=== PATIENT | male | born 1980 | race Caucasian/White ===

== ENCOUNTER → 2019-06-07 | Outpatient (CLI) | payer MEDICARE, OTHER ==
[~2019-06-07] MED LIST: ACET325; ACET325 PO; ALBU90OI INH; ALPR.5 PO; AZIT500 PO; BENZ2 PO; BUSP15 PO; CARB200 PO; CARI350 PO; CEPH500 PO; CITA20 PO; CLIN300 PO; CLOT1SO TOP; Carisoprodol350 MG PO; DIVA500EC PO; DULO30 PO; ESCI20 PO; FLUO10 PO; HYDACE5 PO; HYDMOR4 PO; IBUP800 PO; MULVITMINF PO; NAPR500 PO; NICO7; Naprosyn500 MG PO; Norco 5-325 Ta1 EACH PO; OLAN10 PO; OMEP20ER PO; ONDA4 PO; ONDA4ODT MM; OXYACE5T PO; PALI3TAB PO; PENVK500 PO; PRAZ1 PO; PRODEXEL PO; PROM25 PO; PROP10 PO; PROP80ER PO; PROZAC20 MG PO; Potassium Citra5 MEQ PO; Prednisone20 MG PO; QUET300 PO; ROPI.25 PO; RXHYDACE PO; RXHYDMOR2 PO; RXPROM25 PO; Roxicodone5 MG PO; SOMA350 MG PO; SPACE CHAMBER1 EACH MC; SULTRIDS PO; TRAZ150T57 PO; ZOLP10 PO; ZOLPIDEM 5 MG PO; Zithromax250 MG PO; Zovirax200 MG PO; [UNRECOGNIZED DRUG - OTHER] IV; [UNRECOGNIZED DRUG - REMARK]
[2019-06-07 12:19] LABS: BASOPHILS ABSOLUTE AUTO 0.05 K/mm3 (0.00-0.23); BASOPHILS PERCENT AUTO 1 % (0-2); EOSINOPHILS ABSOLUTE AUTO 0.29 K/mm3 (0.00-0.68); EOSINOPHILS PERCENT AUTO 3 % (0-6); Hematocrit 43.2 % (37.0-53.0); Hemoglobin 14.9 g/dL (13.5-17.5); IMMATURE GRAN ABSOLUTE AUTO 0.02 K/mm3 (0.00-0.10); IMMATURE GRAN PERCENT AUTO 0 % (0-1); LYMPHOCYTES ABSOLUTE AUTO 2.52 K/mm3 (0.84-5.20); LYMPHOCYTES PERCENT AUTO 26 % (21-46); MONOCYTES ABSOLUTE AUTO 0.72 K/mm3 (0.16-1.47); MONOCYTES PERCENT AUTO 7 % (4-13); Mean Corpuscular HGB 30.9 pg (26.0-34.0); Mean Corpuscular HGB Conc 34.5 g/dL (31.5-36.5); Mean Corpuscular Volume 90 fL (80-100); Mean Platelet Volume 9.9 fL (9.1-12.4); NEUTROPHILS ABSOLUTE AUTO 6.14 K/mm3 (1.96-9.15); NEUTROPHILS PERCENT AUTO 63 % (41-73); Platelet Count 356 K/mm3 (150-400); RDW Coefficient Variation 12.8 % (11.7-14.2); RDW Standard Deviation 42.3 fL (35.1-46.3); Red Blood Cell Count 4.82 M/mm3 (4.30-5.90); White Blood Cell Count 9.74 K/mm3 (4.00-11.30)
[2019-06-07 12:27] LABS: Alanine Aminotransfer (ALT/SGP 20 U/L (12-78); Albumin/Globulin Ratio 1.2 (0.8-1.8); Alk Phos 66 U/L (40-126); Amylase, Blood 27 U/L (25-115); Anion Gap 10 mmol/L (6-16); Aspartate Aminotrans (AST/SGOT 18 U/L (12-37); Bilirubin, Total 0.2 mg/dL (0.1-1.0); Blood Urea Nitrogen 9 mg/dL (8-24); Bun/Creatinine Ratio 9.8 (12.0-20.0); CO2, Blood 28 mmol/L (21-32); Calcium, Blood 8.9 mg/dL (8.5-10.1); Chloride, Blood 102 mmol/L (98-108); Creatinine, Blood 0.92 mg/dL (0.60-1.20); Globulin, Blood 3.3 g/dL (2.2-4.0); Glomerular Filtration Rate >60 (60-); Glucose, Blood 107 mg/dL (70-99); Potassium, Blood 3.9 mmol/L (3.5-5.5); Sodium, Blood 140 mmol/L (136-145); Total Protein, Blood 7.3 g/dL (6.4-8.2)
== END ==
LOC: LAB EV 12:11 → LAB SHORT 12:11
PROVIDERS: Emergency Medicine
DX: R10.9 Unspecified abdominal pain (principal)
CPT/HCPCS: 80053; 82150; 83690; 85025

== ENCOUNTER 2019-06-12 09:13 | Inpatient (IN) | payer MEDICARE, OTHER ==
[~2019-06-12] VITALS: Ht 167.6 cm; Wt 65.7 kg
[2019-06-12] MEDS ORDERED: BUSP5 (10:10)
[2019-06-12] MEDS ORDERED: TRAZADONE (10:10)
[2019-06-12] MEDS ORDERED: LYRICA (10:11)
[2019-06-12 10:17] LABS: Hemoglobin 13.7 g/dL (13.5-17.5); Mean Corpuscular HGB 30.7 pg (26.0-34.0); Mean Corpuscular HGB Conc 33.4 g/dL (31.5-36.5); Mean Corpuscular Volume 92 fL (80-100); Mean Platelet Volume 11.1 fL (9.1-12.4); Platelet Count 241 K/mm3 (150-400); RDW Coefficient Variation 13.4 % (11.7-14.2); RDW Standard Deviation 45.5 fL (35.1-46.3); Red Blood Cell Count 4.46 M/mm3 (4.30-5.90)
[2019-06-12 10:26] LABS: PCO2 Arterial 50.9 mmHg (35-45); PO2 Arterial 95.1 mmHg (80-100); pH Blood Arterial 7.34 (7.35-7.45)
[2019-06-12 10:31] LABS: International Normalized Ratio 1.21; Prothrombin Time Results 12.8 Sec (9.7-11.5)
[2019-06-12 10:34] LABS: Source, Urine Voided
[2019-06-12 10:36] LABS: Alanine Aminotransfer (ALT/SGP 37 U/L (12-78); Albumin, Blood 3.4 g/dL (3.4-5.0); Albumin/Globulin Ratio 0.8 (0.8-1.8); Alk Phos 89 U/L (50-136); Anion Gap 9 mmol/L (6-16); Aspartate Aminotrans (AST/SGOT 69 U/L (12-37); Bilirubin, Total 0.4 mg/dL (0.1-1.0); Blood Urea Nitrogen 14 mg/dL (8-24); Bun/Creatinine Ratio 12.8 (12.0-20.0); CO2, Blood 25 mmol/L (21-32); Calcium, Blood 9.1 mg/dL (8.5-10.1); Chloride, Blood 101 mmol/L (98-108); Creatinine, Blood 1.09 mg/dL (0.60-1.20); Globulin, Blood 4.1 g/dL (2.2-4.0); Glomerular Filtration Rate >60 (60-); Glucose, Blood 94 mg/dL (70-99); Potassium, Blood 4.1 mmol/L (3.5-5.5); Sodium, Blood 135 mmol/L (136-145); Total Protein, Blood 7.5 g/dL (6.4-8.2)
[2019-06-12 10:40] LABS: Appearance, Urine Hazy (Clear); Blood, Urine 5+ (Neg); Glucose Qualitative, Urine Neg (Neg); Ketones, Urine 1+ (Neg); Leukocyte Esterase, Urine 1+ (Neg); Nitrite, Urine Pos (Neg); Protein, Urine 4+ (Neg); Specific Gravity, Urine 1.025 (1.003-1.022); Urobilinogen, Urine 2+ (Normal)
[2019-06-12 10:57] LABS: BAND PERCENT MAN 13 % (0-8); BASOPHILS ABSOLUTE MAN 0.14 K/mm3 (0.00-0.23); BASOPHILS PERCENT MAN 1 % (0-2); EOSINOPHILS PERCENT MAN 0 % (0-6); LYMPHOCYTES ABSOLUTE MAN 0.14 K/mm3 (0.84-5.20); LYMPHOCYTES PERCENT MAN 1 % (21-46); MONOCYTES ABSOLUTE MAN 1.18 K/mm3 (0.16-1.47); MONOCYTES PERCENT MAN 8 % (4-13); NEUTROPHILS ABSOLUTE MAN 13.32 K/mm3 (1.96-9.15); SEG NEUTROPHILS PERCENT MAN 77 % (41-73); TOTAL CELLS COUNTED 100
[2019-06-12 10:58] LABS: Bilirubin, Urine 1+ (Neg)
[2019-06-12 11:00] LABS: Color, Urine Amber (P-Yellow)
[2019-06-12 11:01] LABS: Amorphous Mod (0-Heavy); Bacteria Many /hpf; Mucus Light (0-Heavy); Squamous Epithelial Cells Rare /hpf (Few)
[2019-06-12 11:08] LABS: U Amphetamine Screen DETECTED; U Cannabinoids Screen DETECTED; U Methamphetamine Screen DETECTED
[2019-06-12 11:09] LABS: Influenza A Negative (NEGATIVE); Influenza B Negative (NEGATIVE); U Barbituate Screen Not Detected; U Benzodiazapine Screen Not Detected; U Buprenorphine Screen Not Detected; U Cocaine Screen Not Detected; U Methadone Screen DETECTED; U Opiates Screen Not Detected; U Oxycodone Screen Not Detected; U Phencyclidine Screen Not Detected; U Propoxyphene Screen Not Detected
[2019-06-12] MEDS ORDERED: PREGABALIN200 MG PO (12:02)
[2019-06-12] MEDS ORDERED: Buspirone HCl15 MG PO (12:02)
[2019-06-12] MEDS ORDERED: TRAZ100 PO (12:02)
[2019-06-12] MEDS ORDERED: Zoloft100 MG PO (12:03)
[2019-06-12 14:42] LABS: Creatine Kinase MB 11.4 ng/mL (0.0-3.6)
[2019-06-12 14:52] LABS: Creatine Kinase MB Index 0.5 (0.0-4.0)
--- NOTE | 2019-06-12 15:15 | NUR ---
REPORT FROM KARAN ALMONTE 39 YO MALE TO ICU 8 FOR SEPSIS, PNEUMONIA AND SUBSTANCE ABUSE. INTUBATED, VENTILATED
--- NOTE | 2019-06-12 16:16 | NUR ---
PATIENT ARRIVED 1550. INTUBATED 8.0 ETT 24 THOMAS. AC 14 Vt 500 PEEP 5 FIO2 40% PROPOFOL STARTED AT 30 MCG/KG/MIN. DIFFUSE RASH NOTED UPPER CHEST WITH VANCO INFUSING. VANCO STOPPED PER DR. PARISH AND PHARMACY NOTIFIED OF ALLERGY. OGT TO LIS. TEMP PROBE BARBOSA DRAINING YELLOW URINE
--- NOTE | 2019-06-12 17:09 | NUR ---
SLIGHT ST ELEVATION ON MONITOR IN ROOM. ECG ORDERED BY DR. PARISH.
[2019-06-12 18:37] LABS: Adenovirus Not Detected (NOT DETECT); Bordetella pertussis Not Detected (NOT DETECT); Chlamydophila pneumoniae Not Detected (NOT DETECT); Coronavirus 229E Not Detected (NOT DETECT); Coronavirus HKU1 Not Detected (NOT DETECT); Coronavirus NL63 Not Detected (NOT DETECT); Coronavirus OC43 Not Detected (NOT DETECT); Human Metapneumovirus Not Detected (NOT DETECT); Human Rhinovirus/Enterovirus Not Detected (NOT DETECT); Influenza A Detected (NOT DETECT); Influenza A/H3 Not Detected (NOT DETECT); Influenza B Not Detected (NOT DETECT); Mycoplasma pneumoniae Not Detected (NOT DETECT); Parainfluenza Virus 1 Not Detected (NOT DETECT); Parainfluenza Virus 2 Not Detected (NOT DETECT); Parainfluenza Virus 3 Not Detected (NOT DETECT); Parainfluenza Virus 4 Not Detected (NOT DETECT); Respiratory Syncytial Virus Not Detected (NOT DETECT)
[2019-06-12 18:38] LABS: Influenza A/2009-H1 Detected (NOT DETECT); Influenza A/H1 Not Detected (NOT DETECT)
--- NOTE | 2019-06-12 20:30 | NUR ---
ETT IN PLACE WITH VENT SET AT AC 14, TV 500, PEEP 5, FIO2 35% SUCTIONING LARGE AMT OF THIN CLEAR TO WHITE SPUTUM. PATIENT RESTLESS AND TEARFUL WHEN FAMILY IN THE ROOM. PATIENT NODDING YES TO BACK PAIN, FENTANYL GIVEN FOR PAIN. PROPOFOL TITRATED TO 35 MCG FROM 40 MCG DUE TO HYPOTENSION. DOCTOR МАРИНА NOTIFIED OF FLU + RESULTS AND HYPOTENSION, PLAN TO PLACE CENTRAL LINE AND USE LEVOPHED IF NEEDED. OG IN PLACE AND CLAMPED, BOWEL TONES HYPER AND PATIENT PASSING FLATUS, DENIES NEED TO HAVE BM. PATIENTS FAMILY HOME FOR THE NIGHT TO ALLOW PATIENT TO REST.
[2019-06-12 21:00] LABS: Troponin I 0.052 ng/mL (0.000-0.040)
[2019-06-12 22:34] LABS: Creatine Kinase MB 10.3 ng/mL (0.0-3.6); Creatine Kinase MB Index 0.5 (0.0-4.0)
--- NOTE | 2019-06-12 22:41 | NUR ---
CENTRAL LINE PLACED TO RIGHT IJ BY DOCTOR МАРИНА, PATIENT NILAY WELL. OK TO USE PER X-RAY AND DOCTOR МАРИНА. PATIENT RESTING QUIETLY WITH PROPOFOL AT 35MCG. NO NEED FOR FURTHER ATIVAN OR FENTANYL DURING LINE PLACEMENT.
[2019-06-12 22:45] LABS: PCO2 Arterial 49.9 mmHg (35-45); PO2 Arterial 74.8 mmHg (80-100); pH Blood Arterial 7.35 (7.35-7.45)
[2019-06-13 03:16] LABS: Hematocrit 33.2 % (37.0-53.0); Hemoglobin 10.7 g/dL (13.5-17.5); Mean Corpuscular HGB 30.1 pg (26.0-34.0); Mean Corpuscular HGB Conc 32.2 g/dL (31.5-36.5); Mean Corpuscular Volume 94 fL (80-100); Mean Platelet Volume 11.4 fL (9.1-12.4); Platelet Count 165 K/mm3 (150-400); RDW Coefficient Variation 13.9 % (11.7-14.2); RDW Standard Deviation 48.4 fL (35.1-46.3); Red Blood Cell Count 3.55 M/mm3 (4.30-5.90); White Blood Cell Count 5.54 K/mm3 (4.00-11.30)
[2019-06-13 03:38] LABS: Alanine Aminotransfer (ALT/SGP 42 U/L (12-78); Albumin, Blood 2.3 g/dL (3.4-5.0); Albumin/Globulin Ratio 0.7 (0.8-1.8); Alk Phos 61 U/L (50-136); Anion Gap 5 mmol/L (6-16); Aspartate Aminotrans (AST/SGOT 69 U/L (12-37); Bilirubin, Total 0.2 mg/dL (0.1-1.0); Blood Urea Nitrogen 11 mg/dL (8-24); Bun/Creatinine Ratio 20.1 (12.0-20.0); CO2, Blood 28 mmol/L (21-32); Calcium, Blood 8.4 mg/dL (8.5-10.1); Chloride, Blood 109 mmol/L (98-108); Creatinine, Blood 0.55 mg/dL (0.60-1.20); Globulin, Blood 3.2 g/dL (2.2-4.0); Glomerular Filtration Rate >60 (60-); Glucose, Blood 132 mg/dL (70-99); Magnesium, Blood 2.1 mg/dL (1.6-2.4); Potassium, Blood 4.3 mmol/L (3.5-5.5); Sodium, Blood 142 mmol/L (136-145)
[2019-06-13 03:39] LABS: Total Protein, Blood 5.5 g/dL (6.4-8.2)
[2019-06-13 03:50] LABS: CPK Creatine Kinase 1383 U/L (39-308)
[2019-06-13 05:35] LABS: BAND PERCENT MAN 13 % (0-8); BASOPHILS PERCENT MAN 0 % (0-2); EOSINOPHILS PERCENT MAN 0 % (0-6); LYMPHOCYTES ABSOLUTE MAN 0.55 K/mm3 (0.84-5.20); LYMPHOCYTES PERCENT MAN 10 % (21-46); METAMYELOCYTE ABSOLUTE MAN 0.05 K/mm3 (0.00-0.00); METAMYELOCYTE PERCENT MAN 1 % (0-0); MONOCYTES ABSOLUTE MAN 0.22 K/mm3 (0.16-1.47); MONOCYTES PERCENT MAN 4 % (4-13); SEG NEUTROPHILS PERCENT MAN 72 % (41-73); TOTAL CELLS COUNTED 100
--- NOTE | 2019-06-13 06:28 | NUR ---
SUMMARY PATIENT REMAINS INTUBATED AND SEDATED WITH ETT IN PLACE AND VENT SET AT AC 14, TV 500, PEEP 5, FIO2 40%. CONTINUE TO SUCTION LARGE AMT OF CREAMY YELLOW SPUTUM VIA ETT. PATIENT AWAKENS TO SLIGHT STIMULI, PROPOFOL 40 MCG AND PRN ATIVAN GIVEN TO HELP PATIENT NILAY ETT. PATIENT COOL AND DIAPHORETIC SEVERAL TIMES DURING THE NIGHT. ABD SOFT BUT NO BM RESULTS, CONTINUES TO PASS FLATUS. BILAT WRIST RESTRAINTS REMAIN IN PLACE DUE TO RISK FOR SELF EXTUBATION DUE TO UNPREDICTABLE SEDATION AND BEHAVIOR. OG REMAINS IN PLACE AND CLAMPED.
--- NOTE | 2019-06-13 07:40 | NUR ---
ASSUMED CARE REPORT FROM LU Payan RN. INTUBATED, VENTILATED AND RESTRAINED. IN DROPLET AND CONTACT ISOLATION FOR INFLUENZA A H1N1. SEDATED ON PROPOFOL AT 40 MCG/KG/MIN. SN NASRIN TO ASSESS PATIENT
--- NOTE | 2019-06-13 19:30 | NUR ---
PATIENT AWAKE AND RESTLESS, ETT IN PLACE WITH VENT SET AT AC 14, TV 500, PEEP 5, FIO2 45%. SUCTIONING THICK YELLOW SPUTUM VIA ETT. PROPOFOL AT 50 MCG, ATIVAN GIVEN TO HELP PATIENT RELAX. PATIENT INCONT OF LIQUID BROWN STOOL, ABD SOFT BOWEL TONES HYPERACTIVE. OG IN PLACE WITH TUBE FEEDING AT 25 CC/HR, PLAN TO INCREASE RATE TO GOAL OF 45 CC/HR PATIENT NILAY. MAEW AND NODDING YES AND NO QUESTIONS.
--- NOTE | 2019-06-13 19:36 | NUR ---
PROPOFOL TO 50 MCG/KG/MIN, FENTANYL AND ATIVAN GIVEN WHEN PATIENT AWAKE AND BITING ETT. TF HELD UNTIL PATIENT CALMED. CENTRAL LINE DRESSING REPLACED. REPORT GIVEN TO LU Payan RN
--- NOTE | 2019-06-13 20:00 | NUR ---
PATIENT RESTING QUIETLY INTUBATED AND SEDATED. ETT IN PLACE WITH VENT SET AT AC 16, TV 450, PEEP 10, FIO2 75%. PROPOFOL AT 40MCG FOR SEDATION. PATIENT GRIMACING WITH CARE, NOT FOLLOWING DIRECTIONS. BILAT WRIST RESTRAINTS IN PLACE TO PREVENT ACCIDENTAL EXTUBATION. OG IN PLACE WITH TUBE FEEDING PIVIT 1.5 AT GOAL RATE OF 25/HR. GENERALIZED EDEMA. TRANSVENOUS PACER INCRETION SITE TO RIGHT CHEST. DRESSING CD&I, MONITOR SHOWING PACED RHYTHM SET AT 60, APROX 90% PACED DUE TO PATIENTS OWN INCREASED RATE TO THE 70'S.
[2019-06-14 04:33] LABS: BASOPHILS PERCENT AUTO 0 % (0-2); EOSINOPHILS PERCENT AUTO 0 % (0-6); Hematocrit 33.1 % (37.0-53.0); Hemoglobin 10.6 g/dL (13.5-17.5); IMMATURE GRAN ABSOLUTE AUTO 0.04 K/mm3 (0.00-0.10); IMMATURE GRAN PERCENT AUTO 1 % (0-1); LYMPHOCYTES ABSOLUTE AUTO 0.71 K/mm3 (0.84-5.20); LYMPHOCYTES PERCENT AUTO 12 % (21-46); MONOCYTES PERCENT AUTO 7 % (4-13); Mean Corpuscular HGB 30.3 pg (26.0-34.0); Mean Corpuscular Volume 95 fL (80-100); Mean Platelet Volume 11.1 fL (9.1-12.4); NEUTROPHILS ABSOLUTE AUTO 4.97 K/mm3 (1.96-9.15); NEUTROPHILS PERCENT AUTO 81 % (41-73); NRBC ABSOLUTE 0.04 K/mm3 (0.00-0.02); NRBC Auto 0.7 /100 WBC (0.0-0.2); Platelet Count 197 K/mm3 (150-400); RDW Coefficient Variation 14.7 % (11.7-14.2); RDW Standard Deviation 51.4 fL (35.1-46.3); White Blood Cell Count 6.12 K/mm3 (4.00-11.30)
[2019-06-14 04:52] LABS: Alanine Aminotransfer (ALT/SGP 45 U/L (12-78); Albumin, Blood 2.3 g/dL (3.4-5.0); Albumin/Globulin Ratio 0.7 (0.8-1.8); Alk Phos 60 U/L (50-136); Anion Gap 1 mmol/L (6-16); Aspartate Aminotrans (AST/SGOT 49 U/L (12-37); Bilirubin, Total 0.1 mg/dL (0.1-1.0); Blood Urea Nitrogen 15 mg/dL (8-24); Bun/Creatinine Ratio 27.3 (12.0-20.0); CO2, Blood 31 mmol/L (21-32); CPK Creatine Kinase 479 U/L (39-308); Calcium, Blood 8.5 mg/dL (8.5-10.1); Chloride, Blood 112 mmol/L (98-108); Creatinine, Blood 0.55 mg/dL (0.60-1.20); Globulin, Blood 3.2 g/dL (2.2-4.0); Glomerular Filtration Rate >60 (60-); Glucose, Blood 167 mg/dL (70-99); Magnesium, Blood 2.2 mg/dL (1.6-2.4); Phosphorus, Blood 2.3 mg/dL (2.5-4.9); Potassium, Blood 3.6 mmol/L (3.5-5.5); Sodium, Blood 144 mmol/L (136-145); Total Protein, Blood 5.5 g/dL (6.4-8.2)
[2019-06-14 04:57] LABS: PCO2 Arterial 47.6 mmHg (35-45); PO2 Arterial 95.4 mmHg (80-100); pH Blood Arterial 7.41 (7.35-7.45)
--- NOTE | 2019-06-14 06:40 | NUR ---
SUMMARY PATIENT REMAINS INTUBATED AND SEDATED WITH PROPOFOL AT 50MCG, AND ATIVAN NEEDED. PATIENT AWAKENS EASILY TO SLIGHT STIMULI. BILAT WRIST RESTRAINT REMAIN IN PLACE TO PREVENT ACCIDENTAL EXTUBATION DUE TO UNPREDICTABLE SEDATION AND BEHAVIOR. NO CHANGES TO VENT SETTINGS T/O NIGHT. CONTINUE TO SUCTION LARGE AMT OF CREAMY YELLOW SECRETIONS VIA ETT. OG REMAINS IN PLACE WITH TUBE FEEDING AT GOAL RATE OF 45/HR. PATIENT PASSING SEVERAL LOOSE BROWN BM'S T/O NIGHT.
--- NOTE | 2019-06-14 07:27 | NUR ---
ASSUMED CARE REPORT FROM LU Payan RN. PT CONTINUES INTUBATED, VENTILATED AND RESTRAINED. PROPOFOL AT 50 MCG/KG/MIN. NS 125 ML/HR
--- NOTE | 2019-06-14 09:25 | NUR ---
VISIT DR. FREY IN AROUND 0800
--- NOTE | 2019-06-14 12:18 | NUR ---
MD VISIT DR. MOCK IN. WILL ORDER PRECEDEX
--- NOTE | 2019-06-14 14:07 | NUR ---
PRECEDEX GTT STARTED AT 0.32 MCG/KG./HR, TITRATED TO 0.5 MCG/KG/HR AND TO 0.7 MCG/KG/HR FOR CONTINUJED AGITATION WITH Q 1 HR ATIVAN. PROPOFOL TITRATED TO 60 MCG/KG/MIN
--- NOTE | 2019-06-14 15:51 | NUR ---
SUMMARY: PATIENT BECAME INCREASINGLY MORE AGITATED AROUND 1400. PRECEDEX GTT TITRATED FROM 0.3 MCG/KG/HR TO 0.7 MCG/KG/HR. PATIENT STARTED RYTHMIC MOVEMENT WITH EYES ROLLED DOWN. ATIVAN [address] MOCK CONSULTED PT CONTINUED POSSIBLE SEIZURE ACTIVITY. 4 MG IV ATIVAN GIVEN. CONTINUE TO FIGHT VENT, LUNGS TIGHT AND WHEEZY THROUGHOUT. PRECEDEX GTT STOPPED. KEPPRA GTT GIVEN. BENADRYL IV GIVEN. BREATHING SLOWED TO 27 BPM AND THEN BACK UP TO 30'S AND 40'S. RT AT BEDSIDE WITH BREATHING TX'S. VERSED 4MG IV GIVEN. PARALYZED WITH VEC. LUNG SOUNDS CLEAR WHILE PARALIZED. VERSED GTT STARTED AT 2 MG/HR. PROPOFOL AT 60 MCG/KG/HR. AT 1545 VERSED TITRATED TO 4 MG/HR FOR INCREASING AGITATION. EEG ORDERED BY DR. MOCK. DIRECTOR OF CREATIVE SERVICES ADVISES SHE WILL BE IN AFTER 1400 TOMORROW. MOTHER IN TO VISIT, BUT WAS TOLD PATIENT WAS TOO AGITATED FOR A VISIT AT THIS TIME. PATIENT PASSING LIQUID STOOL, NO SIGN OF FOREIGN OBJECTS.
--- NOTE | 2019-06-14 16:39 | NUR ---
BECAME VERY AGITATED AGAIN WITH ORAL CARE. FENTANYL 50 MCG IV GIVEN PROPOFOL TO 80 MCG/KG/MIN. VERSED GTT TO 6 MG/HR
--- NOTE | 2019-06-14 16:52 | NUR ---
PATIENT CONTINUES TO BECOME AGITATED WITH THE LEAST AMOUNT OF STIMULATION. VERSED GTT TO 10 MG/HR. PROPOFOL 80 MCG/KG/MIN. BP 158/92. RR 4 BIOX 100% HR 105
--- NOTE | 2019-06-14 16:58 | NUR ---
PROPOFOL TO 100 MCG/KG/MIN. DR. MOCK NOTIFIED. NIMBEX GTT ORDERED.
--- NOTE | 2019-06-14 17:52 | NUR ---
NIMBEX TITRATED TO 3.5 FOR PARALYSIS BIS MONITOR 40 WITH VERSED GTT TO 2 MG/HR AND PROPOFOL 55 MMCG/KG/MIN
--- NOTE | 2019-06-14 18:47 | NUR ---
URINE SQUIRTING FROM AROUND CATHETER. IRRIGATED WITH 30 CC NS. IMMEDIATE RETURN OF 200 CC RED URINE. BM CLEANED. WHITE SUBSTANCE IN STOOL APPEARS TO BE GUM. REPOSITIONED. WILL REPORT TO ONCOMING SHIFT.
--- NOTE | 2019-06-14 20:00 | NUR ---
PATIENT REMAINS INTUBATED AND SEDATED VENT SET AT AC 14, TV 500, PEEP 5, FIO2 45%. SEDATED WITH PROPOFOL AT 30MCG, VERSED AT 2MG, AND PARALYZED WITH NIMBEX AT 3.5. CLARIFIED WITH DOCTOR MOCK AND TUBE FEEDING DECREASED TO 10 CC/HR AND HYDRALAZINE ORDERED FOR HYPERTENSION. PLAN TO TITRATE NIMBEX DOWN PATIENT CAN NILAY. CONTINUE BOTH PROPOFOL AND VERSED DRIP. SEE FLOW SHEET FOR TITRATIONS. OG REMAINS IN PLACE FOR TUBE FEEDING. BARBOSA DRAINING BLOODY URINE WITH FEW CLOTS SEEN IN TUBING. BILAT WRIST RESTRAINTS REMAIN IN PLACE DUE TO UNPREDICTABLE SEDATION AND BEHAVIOR.
[2019-06-15 05:04] LABS: BASOPHILS ABSOLUTE AUTO 0.03 K/mm3 (0.00-0.23); BASOPHILS PERCENT AUTO 0 % (0-2); EOSINOPHILS PERCENT AUTO 0 % (0-6); Hematocrit 37.3 % (37.0-53.0); IMMATURE GRAN ABSOLUTE AUTO 0.36 K/mm3 (0.00-0.10); IMMATURE GRAN PERCENT AUTO 5 % (0-1); LYMPHOCYTES ABSOLUTE AUTO 1.24 K/mm3 (0.84-5.20); LYMPHOCYTES PERCENT AUTO 16 % (21-46); MONOCYTES ABSOLUTE AUTO 0.58 K/mm3 (0.16-1.47); MONOCYTES PERCENT AUTO 7 % (4-13); Mean Corpuscular HGB 30.1 pg (26.0-34.0); Mean Corpuscular HGB Conc 32.2 g/dL (31.5-36.5); Mean Corpuscular Volume 94 fL (80-100); Mean Platelet Volume 10.8 fL (9.1-12.4); NEUTROPHILS ABSOLUTE AUTO 5.63 K/mm3 (1.96-9.15); NEUTROPHILS PERCENT AUTO 72 % (41-73); Platelet Count 240 K/mm3 (150-400); RDW Coefficient Variation 14.8 % (11.7-14.2); RDW Standard Deviation 51.8 fL (35.1-46.3); Red Blood Cell Count 3.99 M/mm3 (4.30-5.90); White Blood Cell Count 7.84 K/mm3 (4.00-11.30)
[2019-06-15 05:31] LABS: Albumin, Blood 2.7 g/dL (3.4-5.0); Anion Gap 3 mmol/L (6-16); Blood Urea Nitrogen 10 mg/dL (8-24); Bun/Creatinine Ratio 19.3 (12.0-20.0); CO2, Blood 32 mmol/L (21-32); Calcium, Blood 8.5 mg/dL (8.5-10.1); Chloride, Blood 108 mmol/L (98-108); Creatinine, Blood 0.52 mg/dL (0.60-1.20); Glomerular Filtration Rate >60 (60-); Glucose, Blood 139 mg/dL (70-99); Phosphorus, Blood 3.3 mg/dL (2.5-4.9); Potassium, Blood 3.7 mmol/L (3.5-5.5); Sodium, Blood 143 mmol/L (136-145)
--- NOTE | 2019-06-15 06:00 | NUR ---
SUMMARY PATIENT INTUBATED AND SEDATED, ETT IN PLACE WITH VENT SET AT AC 14, TV 500, PEEP 5, FIO2 40% SEDATED WITH VERSED 1MG, PROPOFOL 40 MCG, AND PARALYZED WITH NIMBEX 2 MCG. PATIENT BIS IN PLACE WITH RANGE HIGH 20'S WHEN UNDISTURBED AND LOW 40'S WITH STIMULI. TRAIN OF 4 4/4 TO RIGHT EYEBROW. OG IN PLACE WITH TUBE FEEDING AT 10 CC/HR WHILE ON NIMBEX. NO FURTHER LIQUID STOOLS T/O NIGHT. BARBOSA DRAINING BLOOD TINGED TO PINK URINE, AND HAS BEEN CLEARING TO YELLOW URINE THE NIGHT PROGRESSED. BILAT WRIST RESTRAINTS REMAIN IN PLACE DUE TO UNPREDICTABLE SEDATION AND BEHAVIOR.
--- NOTE | 2019-06-15 10:12 | NUR ---
0800...PT SEDATED NOTED ON PROPOFOL, VERSED, NIMBEX NOTED, NS. PT HAS SL TWITHCHING OF LEGS WITH STIMULATION OF FEET AND RANDOM SL MOVEMENT OF HEAD ON CURRENTL SETITNGS. AT APPROX 0930 PT NOTED TO BE MOD. TWITCHING OF UPPER BODY AND HR UP TO 115-120. NIMBEX WAS UNC BACK TO 2 MCG, AND PROPOFOL GTT INC TO 50, THEN APROX 0950 VERSED GTT INC TO 2MCG AND WILL FOLLOW. 1020 PT HAS ONLY SL TWITCHING OF HEAD RANDOMLY AND OTHERWISE CALM AND WILL FOLLOW. HR REMAINS SL ELEVATED NOTED AND HAS BP EVEN WITH PRN. WILL FOLLOW WITH SEDATION, MEDS AND DR NEEDED.
--- NOTE | 2019-06-15 18:51 | NUR ---
PT IS RESTING QUIETLY WITH CHARTED AND NOTED MEDS PER FLOWSHEET. PT HAS HAD NO STOOLING. VS HAVE IMPROVED WITH EARLIER START OF PRECEDEX GTT. VENT SETTINGS UNCHANGED. ET SX HAVE BEEN MINIMAL AND WHITE. VENT UNCHANGED. I/O NOTED AND IVF RATE CHANGED NOTED AND 2000 LABS TO FOLLOW.
[2019-06-15 21:50] LABS: Anion Gap 1 mmol/L (6-16); Blood Urea Nitrogen 10 mg/dL (8-24); Bun/Creatinine Ratio 19.2 (12.0-20.0); CO2, Blood 33 mmol/L (21-32); Calcium, Blood 8.7 mg/dL (8.5-10.1); Chloride, Blood 106 mmol/L (98-108); Creatinine, Blood 0.52 mg/dL (0.60-1.20); Glomerular Filtration Rate >60 (60-); Glucose, Blood 135 mg/dL (70-99); Potassium, Blood 3.9 mmol/L (3.5-5.5); Sodium, Blood 140 mmol/L (136-145)
--- NOTE | 2019-06-15 22:00 | NUR ---
ASSUMED PT CARE FROM KARAN FUNG AT 1915 PT INTUBATED, SEDATED, AND PARALYZED. PROPOFOL INFUSING AT 40MCG/KG/MIN, PRECEDEX AT 0.7MCG/KG/HR, AND VERSED AT 1MG/HR. PT HAS NIMBEX INFUSING AT 2MCG/KG/MIN; TRAIN OF FOUR NOTED TO BE 4/4 AND BIS MONITOR MEASURING BETWEEN 20-30'S. PT IS COMPLETELY UNRESPONSIVE. PER REPORT PT WAS ATTEMPTED WITH A SEDATION VACATION, WHICH WAS UNSUCCESSFUL PT WAS VERY AGITATED AND RESTLESS AND WASN'T FOLLOWING ANY COMMANDS. WILL ATTEMPT SEDATION VACATION LATER IN SHIFT. PT NOTED TO HAVE VITAL HIGH PROTEIN INFUSING AT A GOAL OF 10CC/HR D/T NIMBEX GTT. CENTRAL LINE NOTED TO RIGHT IJ. BARBOSA CATH PATENT AND DRAINING CLOUDY PINK TINGED URINE TO GRAVITY WITH NOTED SEDIMENT. PT IS NOTED TO HAVE DEPENDENT EDEMA TO BUE'S AND BLE'S. PT NOTED TO BE NSR WITH HR 70'S. BP'S STABLE WITH SBP'S 160'S. NO FAMILY AT BEDSIDE DURING BEDSIDE REPORTING. WILL CONTINUE TO MONITOR PT'S STATUS AND UPDATE FAMILY/PHYSICIAN NEEDED ON AN ONGOING BASIS.
[2019-06-16 03:24] LABS: BASOPHILS ABSOLUTE AUTO 0.05 K/mm3 (0.00-0.23); BASOPHILS PERCENT AUTO 1 % (0-2); EOSINOPHILS ABSOLUTE AUTO 0.02 K/mm3 (0.00-0.68); EOSINOPHILS PERCENT AUTO 0 % (0-6); Hematocrit 40.3 % (37.0-53.0); IMMATURE GRAN ABSOLUTE AUTO 0.31 K/mm3 (0.00-0.10); IMMATURE GRAN PERCENT AUTO 5 % (0-1); LYMPHOCYTES ABSOLUTE AUTO 1.35 K/mm3 (0.84-5.20); LYMPHOCYTES PERCENT AUTO 20 % (21-46); MONOCYTES ABSOLUTE AUTO 0.54 K/mm3 (0.16-1.47); MONOCYTES PERCENT AUTO 8 % (4-13); Mean Corpuscular HGB 30.1 pg (26.0-34.0); Mean Corpuscular HGB Conc 32.3 g/dL (31.5-36.5); Mean Corpuscular Volume 93 fL (80-100); Mean Platelet Volume 10.4 fL (9.1-12.4); NEUTROPHILS ABSOLUTE AUTO 4.67 K/mm3 (1.96-9.15); NEUTROPHILS PERCENT AUTO 67 % (41-73); Platelet Count 237 K/mm3 (150-400); RDW Coefficient Variation 14.7 % (11.7-14.2); RDW Standard Deviation 50.7 fL (35.1-46.3); Red Blood Cell Count 4.32 M/mm3 (4.30-5.90); White Blood Cell Count 6.94 K/mm3 (4.00-11.30)
[2019-06-16 03:42] LABS: Albumin, Blood 2.9 g/dL (3.4-5.0); Anion Gap 3 mmol/L (6-16); Blood Urea Nitrogen 13 mg/dL (8-24); Bun/Creatinine Ratio 24.5 (12.0-20.0); CO2, Blood 34 mmol/L (21-32); Calcium, Blood 8.7 mg/dL (8.5-10.1); Chloride, Blood 105 mmol/L (98-108); Creatinine, Blood 0.53 mg/dL (0.60-1.20); Glomerular Filtration Rate >60 (60-); Glucose, Blood 143 mg/dL (70-99); Phosphorus, Blood 3.4 mg/dL (2.5-4.9); Potassium, Blood 3.7 mmol/L (3.5-5.5); Sodium, Blood 142 mmol/L (136-145)
--- NOTE | 2019-06-16 06:47 | NUR ---
END OF SHIFT SUMMARY PT REMAINS INTUBATED, SEDATED, AND PARALYZED. ATTEMPTED TO DECREASED NIMBEX TO 1MCG/KG/MIN, AND TURNED PROPOFOL OFF FOR SEDATION VACATION. PRECEDEX REMAINED AT 0.7MCG/KG/HR AND VERSED AT 1MG/HR. PT ABLE TO OPEN EYES TO VERBAL STIMULI; AND MOVE ALL EXTREMITIES. HOWEVER, PT UNABLE TO FOLLOW ANY COMMANDS. RESP RATE QUICKLY INCREASED TO THE 30'S; THEREFORE, TURNED NIMBEX BACK TO 2MCG/KG/MIN AND PROPOFOL TO 30MCG/KG/MIN. BIS MONITOR SHOWING 20-40'S; TRAIN OF FOUR; 4/4 ABOVE RIGHT EYEBROW. VENT SETTINGS REMAIN UNCHANGED. LUNG SOUNDS REMAIN COARSE RHONCHI T/O ALL LOBES WITH OCCASIONAL WHEEZES. VITAL HIGH PROTEIN INFUSING AT GOAL OF 10CC/HR WITH NO RESIDUALS NOTED. TEMP BARBOSA REMAINS PATENT AND DRAINING CLOUDY, PINK TINGED URINE TO GRAVITY WITH SEDIMENT NOTED. WILL CONTINUE TO MONITOR UNTIL REPORT IS HANDED OFF TO ONCOMING RN.
--- NOTE | 2019-06-16 11:21 | NUR ---
PT SEDATION LEVEL IS LESS THAN YESTERDAY WITH LESS SEDATION NOTED. WILL ASSESS AND ADJUST ABLE. PT INCONT OF GREEN STOOL. NOTED TO BE LEAKING AROUND BARBOSA CATH AND WILL EVALUATE FOR POSSIBLE CLOTS OR TUBING KINK. SL GROIN REDDNESS, CLEANED AND LOTIONED.
--- NOTE | 2019-06-16 15:16 | NUR ---
PT HAS BEEN OFF NIMBEX GTT SENCE 1230 AND JUST NOW AROUSING WITH RR 30-38, VISUALLLY FOLLOWING STAFF AROUND ROOM AND GRIPPING WITH HANDS BILAT TO COMMAND. PROPOFOL GTT WAS INC TO 40MCG AND ATIVAN 2MG GIVEN AND WILL FOLLOW PT STATUS. PT WAS ATTEMTPING TO PUSH ETT OUT WITH TONGUE. INC SEDATION HELPED.
--- NOTE | 2019-06-16 16:38 | NUR ---
WASTED 34 CC VERSED WITH KENTON ESPOSITO RN.
--- NOTE | 2019-06-16 18:01 | NUR ---
PT HAS BEEN MILDLY MOVING LEGS AND UPPER EXT SENCE ABOUT 1500 W/O DISRUPTION OF VENT STATUS. PROPOFOL GTT AND BEEN TITRATED UP AND ATIVAN PRN HAS BEEN GIVEN. TF IS AT 30ML AND WILL REPORT TO ADVANCE TO GOAL OF 45ML. I/O NOTED, VSS. SOME EPISODES OF COPIOUS SX YELLOW WITH SPECIMEN SENT.
--- NOTE | 2019-06-16 20:00 | NUR ---
ASSUMED PT CARE FROM KARAN FUNG BEDSIDE REPORT GIVEN. REMAINS INTUBATED WITH VENT SETTINGS UNCHANGED. SEDATED WITH PROPOFOL AT 35MCG/KG/MIN AND PRECEDEX AT 0.7MCG/KG/HR. CENTRAL LINE TO RIGHT IN; DRESSING CDI. VITAL HIGH PROTEIN INFUSING AT 30MLS/HR; GOAL IS 45MLS/HR. BARBOSA CATH CONTINUES TO DRAIN TO GRAVITY; DARK, AYANA/GREEN URINE. NO FAMILY AT BEDSIDE AT THIS TIME. BEDSIDE REPORT GIVEN.
--- NOTE | 2019-06-16 21:55 | NUR ---
SEDATION VACATION TITRATED PROPOFOL OFF AND PRECEDEX TO 1.0MCG/KG/HR. PT ABLE TO OPEN EYES SPONTANEOUSLY AND TRACK. ABLE TO MOVE LEGS UPON COMMANDS; HOWEVER, UNABLE TO SQUEEZE HANDS. PT TOLERATED SEDATION VACATION FOR ABOUT 30 MINUTES UNTIL RESP RATE INCREASED TO HIGH 30'S; THEREFORE, ATTEMPTED TO MEDICATE WITH FENTANYL FOR ADJUNCT SEDATION; UNEFFECTIVE. PT STARTED SITTING UP IN THE BED ATTEMPTING TO PULL AT ETT. THEREFORE, TURNED PROPOFOL BACK TO 50MCG/KG/MIN AND TURNED PRECEDEX BACK DOWN TO 0.7MCG/KG/HR. PT CONTINUED TO PULL AT ETT AND WOULD NOT FOLLOW ANY COMMANDS AT THIS POINT; THEREFORE, MEDICATED WITH 4MG OF ATIVAN, WHICH WAS UNEFFECTIVE. AT THIS POINT PROPOFOL WAS THEN INCREASED TO 70MCG/KG/MIN AND PRECEDEX WAS INCREASED TO 1.0MCG/KG/HR, WHICH WAS EFFECTIVE. WILL START TO TITRATE BACK DOWN TO EFFECT.
[2019-06-17 04:43] LABS: PCO2 Arterial 37.7 mmHg (35-45); PO2 Arterial 108 mmHg (80-100)
[2019-06-17 04:57] LABS: BASOPHILS ABSOLUTE AUTO 0.02 K/mm3 (0.00-0.23); BASOPHILS PERCENT AUTO 0 % (0-2); EOSINOPHILS ABSOLUTE AUTO 0.06 K/mm3 (0.00-0.68); EOSINOPHILS PERCENT AUTO 1 % (0-6); Hematocrit 37.1 % (37.0-53.0); Hemoglobin 12.1 g/dL (13.5-17.5); IMMATURE GRAN PERCENT AUTO 4 % (0-1); LYMPHOCYTES ABSOLUTE AUTO 1.65 K/mm3 (0.84-5.20); LYMPHOCYTES PERCENT AUTO 22 % (21-46); MONOCYTES ABSOLUTE AUTO 0.53 K/mm3 (0.16-1.47); MONOCYTES PERCENT AUTO 7 % (4-13); Mean Corpuscular HGB Conc 32.6 g/dL (31.5-36.5); Mean Corpuscular Volume 92 fL (80-100); Mean Platelet Volume 10.6 fL (9.1-12.4); NEUTROPHILS ABSOLUTE AUTO 4.97 K/mm3 (1.96-9.15); NEUTROPHILS PERCENT AUTO 66 % (41-73); Platelet Count 265 K/mm3 (150-400); RDW Coefficient Variation 14.3 % (11.7-14.2); RDW Standard Deviation 48.4 fL (35.1-46.3); Red Blood Cell Count 4.04 M/mm3 (4.30-5.90); White Blood Cell Count 7.53 K/mm3 (4.00-11.30)
[2019-06-17 05:15] LABS: Albumin, Blood 2.7 g/dL (3.4-5.0); Anion Gap 4 mmol/L (6-16); Blood Urea Nitrogen 20 mg/dL (8-24); Bun/Creatinine Ratio 35.8 (12.0-20.0); CO2, Blood 30 mmol/L (21-32); Calcium, Blood 8.6 mg/dL (8.5-10.1); Chloride, Blood 109 mmol/L (98-108); Creatinine, Blood 0.56 mg/dL (0.60-1.20); Glomerular Filtration Rate >60 (60-); Glucose, Blood 140 mg/dL (70-99); Magnesium, Blood 2.3 mg/dL (1.6-2.4); Phosphorus, Blood 3.1 mg/dL (2.5-4.9); Potassium, Blood 3.5 mmol/L (3.5-5.5); Sodium, Blood 143 mmol/L (136-145)
--- NOTE | 2019-06-17 06:17 | NUR ---
END OF SHIFT SUMMARY NO SIGNIFICANT CHANGES. VENT SETTINGS REMAIN UNCHANGED. PT REMAINS SEDATED WITH PROPOFOL AT 50MCG/KG/MIN AND PRECEDEX AT 0.7MCG/KG/HR. PT STILL OPENS EYES OCCASIONALLY SPONTANEOUSLY, BUT DOESN'T BECOME ASYNCHRONOUS WITH VENT WITH CURRENT GTTS. SEE SEDATION VACATION NOTE FROM EARLIER. VITAL HIGH PROTEIN INFUSING AT GOAL OF 45CC/HR; MINIMAL RESIDUALS THIS SHIFT. BARBOSA CATH REMAINS PATENT AND DRAINING DARK GREEN/YELLOW URINE TO GRAVITY. PT HAS HAD THREE LOOSE, SMALL TO MEDIUM LIQUID STOOLS THIS SHIFT; GREEN IN COLOR. ATTENDS IN PLACE AND SUNDEEP CARE/SKIN CARE PERFORMED AFTER EACH INCONTINENT EPISODE. WILL CONTINUE TO MONITOR FOR CHANGES UNTIL REPORT IS HANDED OFF TO ONCOMING RN.
--- NOTE | 2019-06-17 07:00 | NUR ---
ASSUMED CARE NOTE: ASSUMED CARE OF PT @ 0700, RECEVIED REPORT FROM JIHAN RUSSO. PT RESPONDS TO PAINFUL STIMULI. PT IS INTUBATED AND SEDATED WITH 60MCG/KG/MIN, AND 0.7MCG/KG/HR OF PRECEDEX. VENT SETTINGS @ AC14/500/5/40%. PT IS COARSE T/O, HE IS PRODUCING SMALL AMOUNTS OF THIN WHITE SPUTUM. PT IN SINUS SERGEY WITH HR @ 55 BPM. OG TUBE TO CONTINIOUS FEED @ 45ML/HR OF 1.0 VITAL HP FORMULA. PT HAS BEEN HAVING LOOSE BM'S REPORTED BY SUPERVISOR MALTED MILK, RECTAL TUBE IN PLACE. BARBOSA DRAINING CLOUDY YELLOW URINE. PT HAS BEEN RECEVING PRN ATIVAN DUE TO INCREASED AGITATION. BILAT SWR IN PLACE, WILL CONTINUE TO MONITOR PT T/O SHIFT.
--- NOTE | 2019-06-17 07:43 | NUR ---
UPDATE: PT HAS BEEN HAVING MULTIPLE LOOSE BOWEL MOVEMENTS, REPORTED BY THIERNO CAT. THEREFOREM, RECTAL TUBE WAS PLACE TO PREVENT SKIN BREAKDOWN.
--- NOTE | 2019-06-17 14:36 | NUR ---
UPDATE: PT LUNG SOUNDS ARE MORE COARSE T/O SINCE START OF SHIFT. PT HAS BEEN HAVING MORE YELLOW THIN SPUTUM. FIO2 INCREASED TO 45%. PT IS PRODUCING GREEN COLORED URINE. VITALS STABLE. FAMILY FRIEND @ BEDSIDE
--- NOTE | 2019-06-17 15:28 | NUR ---
SEDATION VACATION: PROPOFOL TITRATED TO STANDBY AND PRECEDEX @ 0.7MCG/KG/HR. PT ABLE TO RESPOND TO VERBAL STIMULI. PT FOLLOWING SIMPLE COMMANDS SUCH : MOVING HANDS AND FEET WHEN TOLD TO DO SO. PT WAS ABLE TO ANSWER YES AND NO QUESTIONS. AFTER 20 MINUTES PT BEGAN ATTEMPTING TO SIT UP AND WAS NOT TOLERATING VENT. PT PLACED BACK ON PROPOFOL @ 50MCG/KG/MIN
--- NOTE | 2019-06-17 17:42 | NUR ---
SHIFT SUMMARY: SEE PREVIOUS NOTES. PT HAS BEEN AGITATED T/O SHIFT WHICH HAS REQUIRED THE NEED FOR PRN ATIVAN TO INCREASE VENT COMPLIANCE. PT'S VENT SETTINGS ARE CURRENTLY AC14/500/5/45%. SEDATION VACATION WAS PROVIDED THIS SHIFT, SEE SEDATION VACATION NOTE. VITAL SIGNS STABLE. PT HAS BEEN IN NSR WITH HR OF 70'S FOR THE MAJORITY OF SHIFT, AT TIMES HR DECREASES INTO THE MID 50'S WHILE PROPERLY SEDATED. VITAL HP RUNNING AT GOAL VIA OG TUBE 45ML/HR, RESIDUALS BETWEEN 20-60MLS. RECTAL TUBE IN PLACE, DRAINING DARK GREEN STOOL.NYSTATIN CREAM APPLIED TWICE TO SUNDEEP AREA. BARBOSA DRAINING GREEN COULDY URINE. PROPOFOL @ 60MCG/KG/MIN, WITH PRECEDEX @ 1.0MCG/KG/HR. WILL CONTINUE TO MONITOR PT T/O SHIFT. BED AT LOWEST LEVEL, SWR IN PLACE.
--- NOTE | 2019-06-17 19:31 | NUR ---
ASSUMED PT CARE FROM KARAN LINSDAY AT 1915 PT SEDATED WITH PROPOFOL AT 60MCG/KG/MIN AND PRECEDEX AT 0.7MCG/KG/HR. TURNED PROPOFOL DOWN TO 40MCG/KG/MIN AND PRECEDEX UP TO 1.4MCG/KG/HR TO ATTEMPT ANOTHER SEDATION VACATION FOR WEAN. WILL CONTINUE TO TITRATE TO EFFECT FOR PT TO REMAIN CALM AND FOLLOW COMMANDS. VENT SETTINGS: AC 14, TV 500, PEEP 5, FIO2 50%. VITAL HIGH PROTEIN INFUSING AT GOAL OF 45CC/HR. BARBOSA CATH REMAINS PATENT AND DRAINING CLEAR, YELLOW/GREEN URINE TO GRAVITY. RECTAL TUBE IN PLACE; PATENT AND DRAINING LIQUID GREEN/BROWN STOOL TO GRAVITY. NO FAMILY AT BEDSIDE AT THIS TIME. BEDSIDE REPORT GIVEN.
[2019-06-18 04:20] LABS: BASOPHILS ABSOLUTE AUTO 0.03 K/mm3 (0.00-0.23); BASOPHILS PERCENT AUTO 0 % (0-2); EOSINOPHILS PERCENT AUTO 2 % (0-6); Hematocrit 38.5 % (37.0-53.0); Hemoglobin 12.5 g/dL (13.5-17.5); IMMATURE GRAN ABSOLUTE AUTO 0.34 K/mm3 (0.00-0.10); IMMATURE GRAN PERCENT AUTO 3 % (0-1); LYMPHOCYTES ABSOLUTE AUTO 1.81 K/mm3 (0.84-5.20); LYMPHOCYTES PERCENT AUTO 17 % (21-46); MONOCYTES ABSOLUTE AUTO 0.58 K/mm3 (0.16-1.47); MONOCYTES PERCENT AUTO 6 % (4-13); Mean Corpuscular HGB 29.8 pg (26.0-34.0); Mean Corpuscular HGB Conc 32.5 g/dL (31.5-36.5); Mean Corpuscular Volume 92 fL (80-100); NEUTROPHILS ABSOLUTE AUTO 7.49 K/mm3 (1.96-9.15); NEUTROPHILS PERCENT AUTO 72 % (41-73); Platelet Count 345 K/mm3 (150-400); RDW Coefficient Variation 14.4 % (11.7-14.2); RDW Standard Deviation 47.9 fL (35.1-46.3); White Blood Cell Count 10.45 K/mm3 (4.00-11.30)
[2019-06-18 04:38] LABS: Alanine Aminotransfer (ALT/SGP 68 U/L (12-78); Albumin, Blood 2.7 g/dL (3.4-5.0); Albumin/Globulin Ratio 0.8 (0.8-1.8); Alk Phos 47 U/L (50-136); Anion Gap 7 mmol/L (6-16); Aspartate Aminotrans (AST/SGOT 17 U/L (12-37); Bilirubin, Total 0.3 mg/dL (0.1-1.0); Blood Urea Nitrogen 26 mg/dL (8-24); Bun/Creatinine Ratio 45.3 (12.0-20.0); CO2, Blood 27 mmol/L (21-32); Calcium, Blood 8.5 mg/dL (8.5-10.1); Chloride, Blood 111 mmol/L (98-108); Creatinine, Blood 0.57 mg/dL (0.60-1.20); Globulin, Blood 3.3 g/dL (2.2-4.0); Glomerular Filtration Rate >60 (60-); Glucose, Blood 138 mg/dL (70-99); Magnesium, Blood 2.1 mg/dL (1.6-2.4); Phosphorus, Blood 3.7 mg/dL (2.5-4.9); Potassium, Blood 3.4 mmol/L (3.5-5.5); Sodium, Blood 145 mmol/L (136-145)
--- NOTE | 2019-06-18 05:33 | NUR ---
END OF SHIFT SUMMARY NO SIGNIFICANT CHANGES. SEE SHIFT SUMMARY FOR SEDATION VACATION NOTE. WEAN ATTEMPTED THIS MORNING. PRECEDEX TITRATED UP TO 1.4MCG/KG/HR AND PROPOFOL DOWN TO 20MCG/KG/MIN. PT ABLE TO OPEN EYES SPONTANEOUSLY, NOD HEAD, MOVE TOES ON COMMAND, UNABLE TO SQUEEZE HANDS. HOWEVER, PT HAS A POSITIVE GAG AND STRONG COUGH. WEAN FAILED D/T RESP RATE 30-40'S WITH LOW TV'S; SEE RT NOTE. PT HAD ONE SMALL EPISODE OF EMESIS WHEN COUGHING HARD AROUND THE ETT; HOWEVER, PT SAT UP AND LEANED FORWARD AND SUCTIONING WAS PERFORMED. VSS HAVE REMAINED STABLE SINCE EMESIS WITH NO DECLINE IN OXYGEN SATURATIONS. VITAL HIGH PROTEIN REMAINS AT GOAL OF 45CC/HR WITH NO RESIDUALS. BARBOSA CATH IS PATENT AND DRAINING GREEN/YELLOW URINE TO GRAVITY. RECTAL TUBE ALSO DRAINING LOOSE/LIQUID GREEN STOOL TO GRAVITY. WILL CONTINUE TO MONITOR FOR CHANGES UNTIL REPORT IS HANDED OFF TO ONCOMING RN.
[2019-06-18 05:54] LABS: PCO2 Arterial 35.5 mmHg (35-45); PO2 Arterial 69.9 mmHg (80-100); pH Blood Arterial 7.49 (7.35-7.45)
--- NOTE | 2019-06-18 10:19 | NUR ---
CARE ASSUMED ASSESSMENT COMPLETED. PT RESTING IN BED, OPENS EYES TO SOUND, DOES NOT TRACK OR FOLLOW COMMANDS. PROPOFOL 65MCG, PRECEDEX 0.7MCG. KEARNS, VSS. LS COARSE WITH INSPIRATORY WHEEZES, SMALL AMOUNT OF WHITE SPUTUM FROM ETT AT THIS TIME. ORAL CARE COMPLETED, SENSITIVE GAG REFLEX NOTED. ABD DISTENDED, FIRM, RECTAL TUBE IN PLACE, PATENT. PT HAD A BROWN LIQUID EMESIS BEFORE GASTRIC RESIDUAL WAS MEASURED, NOTIFIED, TUBE FEEDING OFF AND OGT TO LIWS. PT MEDICATED PER JUN, REPOSITIONED IN BED, PO MEDS HELD FOR THE TIME BEING. NO ADDITIONAL EMESIS AFTER ZOFRAN. FIO2 INCREASED TO 40% FOR SPO2 88-90, SPO2 NOW 93%. WILL CONTINUE TO MONITOR.
--- NOTE | 2019-06-18 12:40 | NUR ---
UPDATE SEDATION VACATION INITIATED, PT AWAKE AT THIS TIME, TRACKING MOVEMENTS, FOLLOWING COMMANDS. DR. WATERS NOTIFIED, AT BEDSIDE TO ASSESS. OG TUBE RETRACTED 9CM PER DR. WATERS. PT'S VS REMAIN STABLE, LS IMPROVING, NO WHEEZES HEARD AT THIS TIME. SCANT OUTPUT FROM ET SUCTIONING.
--- NOTE | 2019-06-18 13:03 | NUR ---
SEDATION VACATION PROPOFOL OFF, PT ON SPONT MODE WITH PS OF 7, VT'S 400'S, RR 30'S-40'S, PT FOLLOWS SIMPLE COMMANDS AND TRACKS, IS SITTING UP IN BED AND CHEWING ON TUBE. VSS, HR 70'S. DR. WATERS AWARE OF RESULTS, CHANGED VENT BACK TO AC WITH PREVIOUS SETTINGS, PROPOFOL RESUMED. WILL PLAN TO EXTUBATE TOMORROW MORNING.
--- NOTE | 2019-06-18 19:00 | NUR ---
ASSUMED CARE NOTE: ASSUMED CARE OF PT @ 1900, RECEVIED REPORT FROM JERMAN RUSSO. PT IS SEDATED AND INTUBATED. SEDATION MEDS ARE PROPOFOL RUNNING @ 65MCG/KG/MIN, PRECEDEX @ 0.7MCG/KG/HR. VENT SETTINGS @ AC14/500/5/45%. PT IS ABLE TO RESPOND TO VERBAL AND PAINFUL STIMULI. NSR WITH HR @ 70. OG TUBE TO LIS, SMALL AMOUNTS OF BILE NOTED. BARBOSA PATNET AND DRAINING GREEN/YELLOW URINE. RECTAL TUBE IN PLACE DRAINING GREEN STOOL TO GRAVITY. BED AT LOWEST. SWR IN PLACE.
--- NOTE | 2019-06-18 19:09 | NUR ---
END OF SHIFT PT HAD A FAIRLY UNEVENTFUL AFTERNOON, WAS MEDICATED FOR ANXIETY TWICE THIS SHIFT WITH GOOD RESULTS. PT KEARNS, DOES NOT TRY TO PULL TUBE AND HAS NOT BEEN COMBATIVE. PT DOES NOT FOLLOW COMMANDS OR TRACK AT THIS TIME, PRECEDEX 0.7, PROPOFOL 65. VSS, LS COARSE, NO WHEEZES NOTED THIS EVENING, SMALL AMOUNTS OF WHITE SPUTUM PRODUCTION PRESENT. PLAN REMAINS TO EXTUBATE IN AM. VENT SETTINGS AC 14, Vt 500, PEEP 5, FIO2 45%, SPO2 94%. LIQUID STOOLS CONTINUE VIA RECTAL TUBE. BARBOSA PATENT AND DRAINING. REPORT TO ONCOMING SHIFT.
[2019-06-19 04:34] LABS: Hematocrit 35.5 % (37.0-53.0); Hemoglobin 11.7 g/dL (13.5-17.5); Mean Corpuscular HGB 29.9 pg (26.0-34.0); Mean Corpuscular Volume 91 fL (80-100); Mean Platelet Volume 9.8 fL (9.1-12.4); Platelet Count 349 K/mm3 (150-400); RDW Coefficient Variation 14.4 % (11.7-14.2); RDW Standard Deviation 47.1 fL (35.1-46.3); Red Blood Cell Count 3.91 M/mm3 (4.30-5.90); White Blood Cell Count 10.36 K/mm3 (4.00-11.30)
[2019-06-19 04:35] LABS: BASOPHILS ABSOLUTE AUTO 0.02 K/mm3 (0.00-0.23); BASOPHILS PERCENT AUTO 0 % (0-2); EOSINOPHILS ABSOLUTE AUTO 0.26 K/mm3 (0.00-0.68); EOSINOPHILS PERCENT AUTO 3 % (0-6); IMMATURE GRAN ABSOLUTE AUTO 0.22 K/mm3 (0.00-0.10); IMMATURE GRAN PERCENT AUTO 2 % (0-1); LYMPHOCYTES ABSOLUTE AUTO 2.08 K/mm3 (0.84-5.20); LYMPHOCYTES PERCENT AUTO 20 % (21-46); MONOCYTES ABSOLUTE AUTO 0.68 K/mm3 (0.16-1.47); MONOCYTES PERCENT AUTO 7 % (4-13); NEUTROPHILS PERCENT AUTO 69 % (41-73)
[2019-06-19 04:53] LABS: Anion Gap 4 mmol/L (6-16); Blood Urea Nitrogen 18 mg/dL (8-24); CO2, Blood 28 mmol/L (21-32); Calcium, Blood 8.4 mg/dL (8.5-10.1); Chloride, Blood 110 mmol/L (98-108); Creatinine, Blood 0.55 mg/dL (0.60-1.20); Glomerular Filtration Rate >60 (60-); Glucose, Blood 108 mg/dL (70-99); Magnesium, Blood 2.1 mg/dL (1.6-2.4); Phosphorus, Blood 3.8 mg/dL (2.5-4.9); Potassium, Blood 3.5 mmol/L (3.5-5.5); Sodium, Blood 142 mmol/L (136-145)
--- NOTE | 2019-06-19 05:17 | NUR ---
PROPOFOL ON SB, PRECEDEX DECREASED TO 0.7MCG/KG/HR, RT AT BEDSIDE, WILL INITIATE VENTILATOR WEANING SHORTLY. PT NOT RESPONDING TO VERBAL STIMULI AT THE MOMENT.
--- NOTE | 2019-06-19 06:12 | NUR ---
SHIFT SUMMARY: PT FINISHED HIS WEANING TRAIL , PT WAS ONLY ABLE TO TOLERATE SPONTANEOUS MODE FOR 15 -20 MINUTES. PT TOOK 30 MINTUES TO BECOME FULLY ALERT AFTER PROPOFOL WAS PLACED ON SB. PT WAS ABLE TO FOLLOW COMMANDS, AND ANSWER QUESTIONS. TWOARDS THE END OF THE WEAN TRAIL PT BEGAN TO REACH FOR THE TUBE, PT WAS ABLE TO SNAP OFF RIGHT SWR. PT WAS ASKED IF HE COULD TOLERATE ANOTHER 15 MIN, PT SHOOK HEAD FROM SIDE TO SIDE STATING "NO", PT THEN CONTINUED TO ATTEMPT TO REACH FOR THE TUBE. SEDATIVES WERE RESTARTED. PROPOFOL AT 30MCG/KG/MIN, PRECEDEX @ 1.0MCG/KG/HR. PRN ATIVAN GIVEN FOR INCREASED AGITATION PER EMAR. PT HAS BEEN IN NSR FOR THE MAJORITY OF SHIFT, ON OCCASION HE WILL BE IN SINUS SERGEY, HR BETWEEN 50-70. OG TUBE TO LIS, NOT MUCH DRAINAGE DURING SHIFT. BARBOSA PATNET AND DRAINING GREEN YELLOW URINE. SWR IN PLACE, BED AT LOWEST LEVEL. WILL CONTINUE TO MONITOR PT T/O SHIFT.
--- NOTE | 2019-06-19 08:58 | NUR ---
CARE ASSUMED ASSESSMENT COMPLETED, PT RESTING IN BED WITH EYES CLOSED, RESPONDS TO VERBAL STIMULI, ORIENTED X4. LOW GRADE FEVER REMAINS PRESENT, VSS, HR 80'S SINUS. BT PRESENT, ABD TENDER TO PALPATION, SCANT MAROON OUTPUT FROM RECTAL TUBE SINCE YESTERDAY. PT VOIDING IN URINAL, AT BEDSIDE. PT IRRITABLE BUT COOPERATIVE WITH CARE. HGB CONTINUES TO DROP, WILL TRANSFUSE PER ORDER.
--- NOTE | 2019-06-19 10:00 | NUR ---
CARE ASSUMED ASSESSMENT COMPLETED. LS CLEAR THIS MORNING, RR 20'S, VT'S 500'S, SPO2 94% WITH VENT SETTINGS AC 14, Vt 500, FIO2 25%, PEEP 5. PT SEDATED WITH PROPOFOL 30MCG AND PRECEDEX 1MCG, LIGHTLY SEDATED, OPENS EYES TO VOICE, DOES NOT FOLLOW COMMANDS WHILE UNDER SEDATION, KEARNS. VSS. DR. WATERS IN TO ASSESS, PROPOFOL SHUT OFF, PT ON SPONTANEOUS MODE WITH PRESSURE SUPPORT 10 AND PEEP 5, RR 20'S, Vt 400-500'S, SPO2 96%, AWARE, NEW ORDERS RECEIVED. PT EXTUBATED BY RT WITH THIS RN AT BEDSIDE AT 1023, 2L O2/NC APPLIED, SPO2 98%, LS REMAIN CLEAR. OGT DC'D WITH EXTUBATION, SWB REMOVED. PT RESTING QUIETLY IN BED, IS CALM AND COOPERATIVE, VS REMAIN STABLE. WILL MONITOR CLOSELY. PRECEDEX INFUSING AT 1MCG.
--- NOTE | 2019-06-19 13:08 | NUR ---
UPDATE PT MAINTAINING SPO2 >90% ON 2L/NC SINCE EXTUBATION, INTERMITTENT EXPIRATORY WHEEZES NOTED, PT DENIES SOB, VSS. PATIENT ORINTED TO SELF, PLACE, AND SITUATION, IS IMPULSIVE, CONTINUALLY TRYING TO SIT UP STATING "I WANT TO GO HOME." REASONS FOR ADMISSION DISCUSSED WITH PATIENT, PT CONTINUES TO TRY TO GET UP. BEDBATH GIVEN, RECTAL TUBE REMOVED, JACE APPLIED TO KEEP PATIENT AND LINES SAFE. PT FOLLOWS COMMANDS, IS INTERMITTENTLY REDIRECTABLE, REMAINS IMPULSIVE. WILL CONTINUE TO MONITOR.
--- NOTE | 2019-06-19 13:47 | NUR ---
UPDATE PT SITTING UP IN BED PULLING AT CENTRAL LINE, SWB RESTRAINTS INITIATED TO PROTECT PATIENT AND LINES. JACE REMAINS IN PLACE. VSS, SPO2 92% ON RA.
--- NOTE | 2019-06-19 19:05 | NUR ---
END OF SHIFT PT MEDICATED MULTIPLE TIMES FOR AGITATION/ANXIETY, CALMED DOWN AND RESTED THIS EVENING. PRECEDEX INFUSION CONTINUES AT 1.4, SWB AND JACE REMAIN IN PLACE PT HAS TRIED TO PULL CL VARIOUS TIMES TODAY. ATTENDS CHANGED THIS EVENING, CALMOSEPTINE APPLIED TO PERIAREA. BEDSIDE SWALLOW EVAL COMPLETED, PT PASSED, SIPS OF WATER GIVEN. PT'S MOODS REMAIN LABILE, PT HAS BEEN UPSET, CRYING, FRUSTRATED, AND IRRITABLE, IS VERY FLAT AT THIS TIME. VOICE QUIET BUT ANSWERS TO QUESTIONS ARE APPROPRIATE. LS WITH FINE EXPIRATORY WHEEZES, SPO2 ON RA >90%, PT DENIES SOB, COUGH IS RARE. VSS, REPORT TO ONCOMING SHIFT.
[2019-06-20 04:37] LABS: BASOPHILS ABSOLUTE AUTO 0.02 K/mm3 (0.00-0.23); BASOPHILS PERCENT AUTO 0 % (0-2); EOSINOPHILS PERCENT AUTO 6 % (0-6); Hematocrit 36.3 % (37.0-53.0); Hemoglobin 12.3 g/dL (13.5-17.5); IMMATURE GRAN ABSOLUTE AUTO 0.17 K/mm3 (0.00-0.10); IMMATURE GRAN PERCENT AUTO 2 % (0-1); LYMPHOCYTES ABSOLUTE AUTO 2.06 K/mm3 (0.84-5.20); LYMPHOCYTES PERCENT AUTO 22 % (21-46); MONOCYTES ABSOLUTE AUTO 0.64 K/mm3 (0.16-1.47); MONOCYTES PERCENT AUTO 7 % (4-13); Mean Corpuscular HGB 30.4 pg (26.0-34.0); Mean Corpuscular HGB Conc 33.9 g/dL (31.5-36.5); Mean Corpuscular Volume 90 fL (80-100); Mean Platelet Volume 9.4 fL (9.1-12.4); NEUTROPHILS ABSOLUTE AUTO 5.92 K/mm3 (1.96-9.15); NEUTROPHILS PERCENT AUTO 63 % (41-73); Platelet Count 403 K/mm3 (150-400); RDW Coefficient Variation 13.5 % (11.7-14.2); RDW Standard Deviation 43.5 fL (35.1-46.3); Red Blood Cell Count 4.05 M/mm3 (4.30-5.90); White Blood Cell Count 9.41 K/mm3 (4.00-11.30)
[2019-06-20 04:52] LABS: Anion Gap 6 mmol/L (6-16); Blood Urea Nitrogen 14 mg/dL (8-24); Bun/Creatinine Ratio 26.9 (12.0-20.0); CO2, Blood 27 mmol/L (21-32); Calcium, Blood 8.4 mg/dL (8.5-10.1); Chloride, Blood 109 mmol/L (98-108); Creatinine, Blood 0.52 mg/dL (0.60-1.20); Glomerular Filtration Rate >60 (60-); Glucose, Blood 100 mg/dL (70-99); Potassium, Blood 2.9 mmol/L (3.5-5.5); Sodium, Blood 142 mmol/L (136-145)
--- NOTE | 2019-06-20 15:53 | NUR ---
PT UP TO CHAIR AND RESTNG WELL. WATCHING TV.
--- NOTE | 2019-06-20 16:24 | NUR ---
PT UP IN CHAIR AND RESTING WELL WATCHING TV. PT CONT TO HAVE PAIN AND RX WITH PO. PRECEDEX GTT DOWN TO 0.2 AND PO LIBRIUM GIVEN AND WILL FOLLOW.
--- NOTE | 2019-06-20 18:25 | NUR ---
PT HAS BEEN SETTING UP IN CHAIR AND RESTING WATCHING TV BUT HAS BEEN ASKING FOR PAIN MEDS THAT ARE YET TO EARLY. PT CAN BE DESTRACTED FROM PAIN FOR SHORT PERIODS BUT PERSISTS IN C/O MID ABDOMENAL PAIN. PT HAS BEEN UP TO [facility] [place] AND TO VOID. PRECEDEX GTT AT 0.2 MCG AND WILL ALLOW NOC TO TITRATE FURTHER. VS, I/O NOTED.
[2019-06-20] MEDS ORDERED: METH10 PO (22:17)
--- NOTE | 2019-06-20 22:55 | NUR ---
ASSUMED CARE OF PT, REPORT RCV'D FROM KARAN FUNG. PT ALERT, ORIENTED, COOPERATIVE WITH CARE. PT SITTING UP IN CHAIR WITH JACE VEST IN PLACE TO PREVENT UNSAFE AMBULATION. PT ASSISTED BACK TO BED WITH 2-PERSON ASSIST, PT WEAK BUT ABLE TO AMBULATE WITH LITTLE DIFFICULTY. PER DR. ADLER, PRECEDEX GTT TURNED OFF. PT GIVEN PO MEDICATIONS FOR PAIN, METHADONE. SCHEDULED AND PRN LIBRIUM. PT DENIES NEEDS AT THIS TIME. SEE FULL SHIFT ASSESSMENT.
[2019-06-21 03:54] LABS: BASOPHILS ABSOLUTE AUTO 0.04 K/mm3 (0.00-0.23); BASOPHILS PERCENT AUTO 0 % (0-2); EOSINOPHILS ABSOLUTE AUTO 0.73 K/mm3 (0.00-0.68); EOSINOPHILS PERCENT AUTO 7 % (0-6); Hematocrit 40.4 % (37.0-53.0); Hemoglobin 13.5 g/dL (13.5-17.5); IMMATURE GRAN ABSOLUTE AUTO 0.11 K/mm3 (0.00-0.10); IMMATURE GRAN PERCENT AUTO 1 % (0-1); LYMPHOCYTES PERCENT AUTO 28 % (21-46); MONOCYTES PERCENT AUTO 9 % (4-13); Mean Corpuscular HGB 30.4 pg (26.0-34.0); Mean Corpuscular HGB Conc 33.4 g/dL (31.5-36.5); Mean Corpuscular Volume 91 fL (80-100); Mean Platelet Volume 9.5 fL (9.1-12.4); NEUTROPHILS PERCENT AUTO 54 % (41-73); Platelet Count 497 K/mm3 (150-400); RDW Standard Deviation 45.3 fL (35.1-46.3); Red Blood Cell Count 4.44 M/mm3 (4.30-5.90); White Blood Cell Count 10.68 K/mm3 (4.00-11.30)
[2019-06-21 04:22] LABS: Alanine Aminotransfer (ALT/SGP 113 U/L (12-78); Albumin/Globulin Ratio 0.9 (0.8-1.8); Alk Phos 56 U/L (50-136); Anion Gap 4 mmol/L (6-16); Aspartate Aminotrans (AST/SGOT 27 U/L (12-37); Bilirubin, Total 0.7 mg/dL (0.1-1.0); Blood Urea Nitrogen 12 mg/dL (8-24); Bun/Creatinine Ratio 20.1 (12.0-20.0); CO2, Blood 29 mmol/L (21-32); Calcium, Blood 8.8 mg/dL (8.5-10.1); Chloride, Blood 109 mmol/L (98-108); Globulin, Blood 3.3 g/dL (2.2-4.0); Glomerular Filtration Rate >60 (60-); Glucose, Blood 106 mg/dL (70-99); Potassium, Blood 3.1 mmol/L (3.5-5.5); Sodium, Blood 142 mmol/L (136-145); Total Protein, Blood 6.3 g/dL (6.4-8.2)
--- NOTE | 2019-06-21 06:25 | NUR ---
SHIFT SUMMARY NO ACUTE CHANGES OVERNIGHT. PT REMAINS COOPERATIVE WITH CARE BUT IS INCREASINGLY ANXIOUS IN REGARDS TO HIS MEDICATIONS. PT ROUTINELY REQUESTS PAIN MEDICATION AND DOSE NOT SEEMS TO HAVE ASSURANCE SENIOR MANAGER PAIN RELIEF WITH ORDERED PERCOCET. PT REQUESTING HOME DOSE OF METHADONE. MEDICATED PT WITH LIBRIUM NEEDED. WILL REPORT TO DAYSHIFT NURSE.
--- NOTE | 2019-06-21 08:00 | NUR ---
PT LAYING IN BED AWAKE A/OX3, PLEASANT AND COOPERATIVE WITH CARE, FOLLOWS COMMANDS WELL, ASKING FOR HIS METHADONE, STATES HIS PAIN IS 10/10, LUNGS ARE CLEAR T/O, RESP EVEN AND UNLABORED, NO COUGH NOTED, HRR, SR PER MONITOR, SEE STRIP, NO EDEMA NOTED, PPP+2, CAP REFILL <3SEC, VS STABLE, AFEBRILE, IV SITES ARE CLEAR AND PATENT, ONE TO RIGHT AC, AND ONE TO LEFT WRIST, BTX4, ABD FLAT SOFT NONTENDER, VOIDS WITHOUT DIFF VIA URINAL, URINE IS AYANA, SKIN C/W/D, MAEW, AVILA, CALL LIGHT IN REACH.
--- NOTE | 2019-06-21 12:30 | NUR ---
ASSUMED CARE: PT RESTING QUIETLY IN BED, REPORT RECIEVED FROM DIONNE. NO ACUTE NEEDS OR CONCERNS AT THIS TIME.
--- NOTE | 2019-06-21 13:17 | NUR ---
PT DOING OK, A BIT SLEEPY THIS AFTERNOON, WAS SINGING EARLIER, HAS REMAINED COOPERATIVE,STATUS CHANGED TO MEDICAL, CALL LIGHT IN REACH, REPORTED TO ONCOMING NURSE.
--- NOTE | 2019-06-21 15:30 | NUR ---
DR PEREZ WAS VISITING PT, STATES HISTORY OF DEPRESSION, PT DOWN WITH FLAT AFFECT. TO ADJUST MEDICATIONS. NO FURTHER NEEDS OR CONCERNS AT THIS TIME.
--- NOTE | 2019-06-21 18:48 | NUR ---
SHIFT SUMMARY: PT RESTING IN BED. FLAT AFFECT. DR PEREZ CAME TO SEE PT AND WROTE FOR FURTHER MEDS, STATES PT IS DEPRESSED DUE TO FATHER PASSING AWAY RECENTLY. CHARGE RNS AWARE OF POSSIBLE DC TOMORROW. NO FURTHER NEEDS OR CONCERNS AT THIS TIME.
--- NOTE | 2019-06-21 22:46 | NUR ---
ASSUMED CARE OF PT, REPORT RCV'D FROM KARAN GAFFNEY. PT ALERT AND ORIENTED, PLEASANT WITH FLAT AFFECT. PT REPORTS 8-9/10 PAIN IN BACK, PT MEDICATED PER EMAR AND OFFERED HEATING PAD-PT DECLINED. PT'S BROTHER AT BEDSIDE, UPDATED ON PLAN OF CARE. SEE FULL SHIFT ASSESSMENT
[2019-06-22 06:39] LABS: BASOPHILS ABSOLUTE AUTO 0.05 K/mm3 (0.00-0.23); BASOPHILS PERCENT AUTO 1 % (0-2); EOSINOPHILS ABSOLUTE AUTO 0.56 K/mm3 (0.00-0.68); EOSINOPHILS PERCENT AUTO 5 % (0-6); Hematocrit 44.2 % (37.0-53.0); Hemoglobin 14.5 g/dL (13.5-17.5); IMMATURE GRAN PERCENT AUTO 1 % (0-1); LYMPHOCYTES ABSOLUTE AUTO 3.26 K/mm3 (0.84-5.20); LYMPHOCYTES PERCENT AUTO 31 % (21-46); MONOCYTES ABSOLUTE AUTO 0.89 K/mm3 (0.16-1.47); MONOCYTES PERCENT AUTO 8 % (4-13); Mean Corpuscular HGB 30.1 pg (26.0-34.0); Mean Corpuscular HGB Conc 32.8 g/dL (31.5-36.5); Mean Corpuscular Volume 92 fL (80-100); Mean Platelet Volume 9.2 fL (9.1-12.4); NEUTROPHILS ABSOLUTE AUTO 5.74 K/mm3 (1.96-9.15); NEUTROPHILS PERCENT AUTO 54 % (41-73); Platelet Count 545 K/mm3 (150-400); RDW Coefficient Variation 14.4 % (11.7-14.2); RDW Standard Deviation 47.3 fL (35.1-46.3); Red Blood Cell Count 4.82 M/mm3 (4.30-5.90)
[2019-06-22 06:43] LABS: Anion Gap 3 mmol/L (6-16); Blood Urea Nitrogen 10 mg/dL (8-24); Bun/Creatinine Ratio 20.8 (12.0-20.0); CO2, Blood 31 mmol/L (21-32); Chloride, Blood 107 mmol/L (98-108); Creatinine, Blood 0.48 mg/dL (0.60-1.20); Glomerular Filtration Rate >60 (60-); Glucose, Blood 90 mg/dL (70-99); Potassium, Blood 3.6 mmol/L (3.5-5.5); Sodium, Blood 141 mmol/L (136-145)
--- NOTE | 2019-06-22 18:35 | NUR ---
SHIFT NOTE 0800: CARE ASSUMED, ASSESSMENT COMPLETED. PT AWAKE, ALERT AND ORIENTED X4, AFFECT FLAT, DEPRESSED. PT CALM AND COOPERATIVE WITH CARE, REQUESTING PAIN MEDICATIONS, WILL MEDICATE PER MAR WITH SCHEDULED AM MEDS. VSS, PT DENIES OTHER NEEDS AT THIS TIME. 1000: PT VERY DROWSY AFTER RECEIVING SHEDULED AM MEDICATIONS, WAKES TO VOICE BUT UNABLE TO MAINTAIN CONVERSATION AND FALLS BACK ASLEEP QUICKLY. 02 APPLIED AT 3L/NC TO MAINTAIN SPO2 >95 %, WILL CONTINUE TO MONITOR. RR 12-14/MINUTE. 1200: PT REMAINS VERY DROWSY, VSS, DENIES NEEDS OR C/O, THEN FALLS BACK ASLEEP. 1400: NO CHANGES NOTED, O2 REMAINS IN PLACE AT 3L/NC. REMAINS DROWSY BUT EASILY ROUSABLE. 1700: VSS, PT BECOMING MORE ALERT, ABLE TO HOLD CONVERSATION BEFORE FALLING BACK ASLEEP. DENIES NEEDS OR C/O AT THIS TIME. 1840: PT WOKE UP, REFUSED DINNER, DRANK WATER WITHOUT DIFFICULTY, STAYED AWAKE FOR A SHORT TIME, THEN WENT BACK TO SLEEP. DANICA ZARATE AND ALETHA IN TO ASSESS, AWARE OF OVER SEDATION AFTER AM MEDICATIONS, MEDICATION ORDERS CHANGED. PT'S VSS T/O SHIFT, SPO2 94% ON RA AT THIS TIME, O2 LEFT OFF. PT DENIES NEEDS OR C/O AT THIS TIME, REPORT TO ONCOMING SHIFT.
--- NOTE | 2019-06-23 03:07 | NUR ---
START OF SHIFT: BEDSIDE REPORT FROM JERMAN RUSSO. PT LYING IN BED SLEEPING. PT HAS SLEPT T/O NOC AWAKENING EASILY TO RN AT BEDSIDE. PT WILL THEN FALL RIGHT BACK TO SLEEP WHEN LEFT ALONE. PT AWAKENED TWO DIFFERENT TIMES REQUESTING ATIVAN AND FELL BACK TO SLEEP WHEN TOLD ATIVAN WAS NO LONGER AVAILABLE AND THAT HIS METHADONE WAS RESTARTED. OTHERWISE, PT QUIET AND COOPERATIVE. CALL LIGHT WITHIN REACH.
[2019-06-23 03:45] LABS: BASOPHILS ABSOLUTE AUTO 0.05 K/mm3 (0.00-0.23); BASOPHILS PERCENT AUTO 0 % (0-2); EOSINOPHILS ABSOLUTE AUTO 0.51 K/mm3 (0.00-0.68); EOSINOPHILS PERCENT AUTO 5 % (0-6); Hematocrit 41.6 % (37.0-53.0); Hemoglobin 13.5 g/dL (13.5-17.5); IMMATURE GRAN ABSOLUTE AUTO 0.07 K/mm3 (0.00-0.10); IMMATURE GRAN PERCENT AUTO 1 % (0-1); LYMPHOCYTES ABSOLUTE AUTO 2.51 K/mm3 (0.84-5.20); LYMPHOCYTES PERCENT AUTO 22 % (21-46); MONOCYTES ABSOLUTE AUTO 0.87 K/mm3 (0.16-1.47); MONOCYTES PERCENT AUTO 8 % (4-13); Mean Corpuscular HGB 30.1 pg (26.0-34.0); Mean Corpuscular HGB Conc 32.5 g/dL (31.5-36.5); Mean Corpuscular Volume 93 fL (80-100); Mean Platelet Volume 9.4 fL (9.1-12.4); NEUTROPHILS PERCENT AUTO 64 % (41-73); Platelet Count 522 K/mm3 (150-400); RDW Coefficient Variation 14.1 % (11.7-14.2); Red Blood Cell Count 4.48 M/mm3 (4.30-5.90); White Blood Cell Count 11.21 K/mm3 (4.00-11.30)
[2019-06-23 03:59] LABS: Albumin, Blood 2.9 g/dL (3.4-5.0); Anion Gap 3 mmol/L (6-16); Blood Urea Nitrogen 11 mg/dL (8-24); Bun/Creatinine Ratio 17.3 (12.0-20.0); CO2, Blood 32 mmol/L (21-32); Calcium, Blood 8.7 mg/dL (8.5-10.1); Chloride, Blood 106 mmol/L (98-108); Creatinine, Blood 0.64 mg/dL (0.60-1.20); Glomerular Filtration Rate >60 (60-); Glucose, Blood 97 mg/dL (70-99); Phosphorus, Blood 2.8 mg/dL (2.5-4.9); Potassium, Blood 3.6 mmol/L (3.5-5.5); Sodium, Blood 141 mmol/L (136-145)
--- NOTE | 2019-06-23 09:01 | NUR ---
CARE ASSUMED ASSESSMENT COMPLETED. PT ALERT, ORIENTED X4, AFFECT FLAT/DEPRESSED, PT APPROPRIATE AND COOPERATIVE, PLEASANT. VSS, SPO2 >90% ON RA, LS WITH FINE EXPIRATORY WHEEZES T/O, PT DENIES SOB, NO COUGH NOTED AT THIS TIME. ZOSYN INFUSING PER ORDERS, PT USING URINAL WITHOUT DIFFICULTY, REPOSITIONING SELF INDEPENDENTLY, TOLERATED BREAKFAST AND AM MEDICATIONS WELL. PT DENIES NEEDS AT THIS TIME.
--- NOTE | 2019-06-23 12:39 | NUR ---
UPDATE PT ALERT AND ORIENTED THIS SHIFT, NO DROWSINESS AFTER AM MEDICATIONS. VSS, PT PLEASANT AND COOPERATIVE WITH CARE. MEDICATED WITH PERCOCET AT THIS TIME FOR BACK PAIN, NEB TREATMENT ADMINISTERED FOR MILD EXPIRATORY WHEEZES. SPO2 > 90% ON RA, PT DENIES SOB, NO COUGH NOTED. PT'S MOTHER WAS IN TO VISIT, PT NOW RESTING AND WATCHING TV. APPETITE POOR, PT DENIES WANTING OTHER LUNCH OPTIONS. DENIES OTHER NEEDS.
[2019-06-23] MEDS ORDERED: Pantoprazole So20 MG PO (14:22)
[2019-06-23] MEDS ORDERED: ALBU90OI INH (14:23)
[2019-06-23] MEDS ORDERED: ACET325 PO (14:23)
--- NOTE | 2019-06-23 14:30 | NUR ---
DISCHARGE NOTE PT ALERT AND ORIENTED, CALM AND COOPERATIVE ALL DAY, VSS. DR. POMPA IN TO ASSESS, HOME O2 EVAL COMPLETED, PT PASSED. IV DC'D WITH TIP INTACT, PRESSURE DRESSING APPLIED. PT DC TO HOME AT 1430 WITH BELONGINGS AND DC INSTRUCTIONS, PT VERBALIZES UNDERSTANDING. RX'S SENT TO [facility] PER PT PREFERENCE. GAIT STEADY UPON DISCHARGE, PT TO HOME WITH FRIEND TO DRIVE HIM.
[2019-06-24 11:09] LABS: CHOL/HDL RATIO 7.8; Cholesterol 171 mg/dL (50-200); HDL Cholesterol 22 mg/dL (>39); LDL/HDL RATIO 5.8; Low Density Lipoprotein Chol 127 mg/dL (0-110); Triglycerides 109 mg/dL (30-140); Very Low Density Lipoprot Chol 21 mg/dL (6-28)
[2019-06-24 11:14] LABS: Triiodothyronine, Free 3.89 pg/mL (2.18-3.98)
== END 2019-06-23 14:30 | disposition home or self-care (01) | DRG 870 ==
LOC: ER 09:13 → ICUE 12:41 → ICUW 12:41 → ICUE 15:26
PROVIDERS: Emergency Medicine; Internal Medicine; Internal Medicine Critical Care Medicine; Nurse Practitioner Acute Care; Physician Assistant; ADMIT Hospitalist
PROC: 5A1955Z Respiratory Ventilation, Greater than 96 Consecutive Hours (ICD-10-PCS; principal; 2019-06-12)
PROC: 0BH17EZ Insertion of Endotracheal Airway into Trachea, Via Natural or Artificial Opening (ICD-10-PCS; 2019-06-12)
PROC: 05HM33Z Insertion of Infusion Device into Right Internal Jugular Vein, Percutaneous Approach (ICD-10-PCS; 2019-06-12)
DX: A40.3 Sepsis due to Streptococcus pneumoniae (principal); G92 Toxic encephalopathy; J96.01 Acute respiratory failure with hypoxia; J69.0 Pneumonitis due to inhalation of food and vomit; R65.20 Severe sepsis without septic shock; J44.1 Chronic obstructive pulmonary disease with (acute) exacerbation; J44.0 Chronic obstructive pulmonary disease with (acute) lower respiratory infection; M62.82 Rhabdomyolysis; F33.3 Major depressive disorder, recurrent, severe with psychotic symptoms; J10.1 Influenza due to other identified influenza virus with other respiratory manifestations; F41.9 Anxiety disorder, unspecified; K21.9 Gastro-esophageal reflux disease without esophagitis; F19.10 Other psychoactive substance abuse, uncomplicated; I95.9 Hypotension, unspecified; F17.210 Nicotine dependence, cigarettes, uncomplicated; R56.9 Unspecified convulsions; B96.3 Hemophilus influenzae [H. influenzae] as the cause of diseases classified elsewhere; B95.4 Other streptococcus as the cause of diseases classified elsewhere; E63.9 Nutritional deficiency, unspecified; Z78.1 Physical restraint status
CPT/HCPCS: 0099U; 31500; 31720; 36415; 36430; 36556; 36600; 51702; 71045; 71260; 76770; 80048; 80053; 80061; 80069; 81001; 82330; 82550; 82553; 82803; 82947; 83605; 83735; 84100; 84145; 84439; 84443; 84481; 84484; 85025; 85610; 85730; 87040; 87070; 87077; 87086; 87147; 87185; 87205; 87804; 90686; 93005; 93010; 93306; 94002; 94003; 94640; 94660; 94761; 96365-59; 96366-59; 96367-59; 96372-59; 96375-59; 99285-25; 99406; A9270-GY; C1751; C9113; G0008; G0103; G0480; J0330; J0360; J0456; J0696; J1200; J1630; J1650; J1953; J2060; J2250; J2310; J2405; J2543; J2704; J2920; J2930; J3010; J3370; J3480; J7030; J7050; J7120; Q9967

== ENCOUNTER → 2019-06-23 | Outpatient (CLI) | payer MEDICARE, OTHER ==
[~2019-06-23] MED LIST changes: +BUSP5; +Buspirone HCl15 MG PO; +LYRICA; +METH10 PO; +PREGABALIN200 MG PO; +Pantoprazole So20 MG PO; +TRAZ100 PO; +TRAZADONE; +Zoloft100 MG PO
[2019-06-24 11:09] LABS: CHOL/HDL RATIO 7.8; Cholesterol 171 mg/dL (50-200); HDL Cholesterol 22 mg/dL (>39); LDL/HDL RATIO 5.8; Low Density Lipoprotein Chol 127 mg/dL (0-110); Triglycerides 109 mg/dL (30-140); Very Low Density Lipoprot Chol 21 mg/dL (6-28)
[2019-06-24 11:14] LABS: Triiodothyronine, Free 3.89 pg/mL (2.18-3.98)
== END | disposition home or self-care (01) ==
LOC: LAB SHORT 11:42 → LAB 11:42
PROVIDERS: Physician Assistant
DX: Z12.5 Encounter for screening for malignant neoplasm of prostate (principal); Z13.29 Encounter for screening for other suspected endocrine disorder
CPT/HCPCS: 80061; 84439; 84443; 84481; G0103

== ENCOUNTER 2019-09-30 21:02 | Emergency (ER) | payer MEDICARE, OTHER ==
[~2019-09-30] VITALS: Ht 170.2 cm; Wt 81.7 kg
== END 2019-09-30 21:28 | disposition left against medical advice (07) ==
LOC: ER 21:02
DX: Z53.21 Procedure and treatment not carried out due to patient leaving prior to being seen by health care provider (principal)

== ENCOUNTER 2019-10-14 07:19 | Emergency (ER) | payer MEDICARE, OTHER ==
[~2019-10-14] VITALS: Ht 167.6 cm; Wt 59.0 kg
[2019-11-05] MEDS ORDERED: SERT100 PO (18:27)
[2019-11-14] MEDS ORDERED: VRAYLAR1.5 MG PO (13:16)
[2019-11-14] MEDS ORDERED: ANORO ELLIPTA1 EAC1 INH (13:16)
[2019-11-14] MEDS ORDERED: QUETIAPINE FUM100 MG PO (13:16)
[2019-11-14] MEDS ORDERED: MINIPRESS2 MG PO (13:16)
[2019-11-14] MEDS ORDERED: PREGABALIN200 MG PO (13:17)
[2019-11-14] MEDS ORDERED: PROPRANOLOL HCL80 MG PO (13:17)
== END 2019-10-14 08:07 | disposition home or self-care (01) ==
LOC: ER 07:19
DX: R44.0 Auditory hallucinations (principal); F31.9 Bipolar disorder, unspecified; J44.9 Chronic obstructive pulmonary disease, unspecified; F41.9 Anxiety disorder, unspecified; K21.9 Gastro-esophageal reflux disease without esophagitis; Z79.899 Other long term (current) drug therapy; F17.210 Nicotine dependence, cigarettes, uncomplicated
CPT/HCPCS: 99284

== ENCOUNTER 2020-09-10 09:59 | Observation (INO) | payer MEDICARE, OTHER ==
[~2020-09-10] VITALS: Ht 167.6 cm; Wt 59.0 kg
[~2020-09-10 09:59] MED LIST changes: +ANORO ELLIPTA1 EAC1 INH; +MINIPRESS2 MG PO; +PROPRANOLOL HCL80 MG PO; +QUETIAPINE FUM100 MG PO; +SERT100 PO; +VRAYLAR1.5 MG PO
[2020-09-10 10:34] LABS: BASOPHILS ABSOLUTE AUTO 0.06 K/mm3 (0.00-0.23); BASOPHILS PERCENT AUTO 0 % (0-2); EOSINOPHILS ABSOLUTE AUTO 0.38 K/mm3 (0.00-0.68); EOSINOPHILS PERCENT AUTO 3 % (0-6); Hematocrit 48.8 % (37.0-53.0); Hemoglobin 16.9 g/dL (13.5-17.5); IMMATURE GRAN ABSOLUTE AUTO 0.04 K/mm3 (0.00-0.10); IMMATURE GRAN PERCENT AUTO 0 % (0-1); LYMPHOCYTES ABSOLUTE AUTO 1.63 K/mm3 (0.84-5.20); LYMPHOCYTES PERCENT AUTO 12 % (21-46); MONOCYTES ABSOLUTE AUTO 1.06 K/mm3 (0.16-1.47); MONOCYTES PERCENT AUTO 8 % (4-13); Mean Corpuscular HGB 30.5 pg (26.0-34.0); Mean Corpuscular HGB Conc 34.6 g/dL (31.5-36.5); Mean Corpuscular Volume 88 fL (80-100); Mean Platelet Volume 9.2 fL (9.1-12.4); NEUTROPHILS ABSOLUTE AUTO 10.57 K/mm3 (1.96-9.15); NEUTROPHILS PERCENT AUTO 77 % (41-73); Platelet Count 360 K/mm3 (150-400); RDW Coefficient Variation 12.5 % (11.7-14.2); RDW Standard Deviation 40.5 fL (35.1-46.3); Red Blood Cell Count 5.55 M/mm3 (4.30-5.90); White Blood Cell Count 13.74 K/mm3 (4.00-11.30)
[2020-09-10 10:51] LABS: Alanine Aminotransfer (ALT/SGP 17 U/L (12-78); Albumin, Blood 4.6 g/dL (3.4-5.0); Albumin/Globulin Ratio 1.4 (0.8-1.8); Alk Phos 81 U/L (50-136); Anion Gap 3 mmol/L (6-16); Aspartate Aminotrans (AST/SGOT 13 U/L (12-37); Bilirubin, Total 0.5 mg/dL (0.1-1.0); Blood Urea Nitrogen 12 mg/dL (8-24); Bun/Creatinine Ratio 12.5 (12.0-20.0); CO2, Blood 31 mmol/L (21-32); Calcium, Blood 10.6 mg/dL (8.5-10.1); Chloride, Blood 99 mmol/L (98-108); Creatinine, Blood 0.96 mg/dL (0.60-1.20); Ethanol (Alcohol), Blood, Med <3 mg/dL; Globulin, Blood 3.4 g/dL (2.2-4.0); Glomerular Filtration Rate >60 (60-); Glucose, Blood 147 mg/dL (70-99); Potassium, Blood 3.2 mmol/L (3.5-5.5); Salicylate 2.2 mg/dL (2.8-20.0); Sodium, Blood 133 mmol/L (136-145)
[2020-09-10 10:54] LABS: Acetaminophen, Random <2.0 ug/mL (10.0-30.0)
[2020-09-10 11:38] LABS: Source, Urine Clean Catch
[2020-09-10 11:45] LABS: Appearance, Urine Clear (Clear); Bilirubin, Urine Neg (Neg); Blood, Urine Neg (Neg); Color, Urine Yellow (P-Yellow); Glucose Qualitative, Urine Neg (Neg); Ketones, Urine 2+ (Neg); Leukocyte Esterase, Urine 1+ (Neg); Nitrite, Urine Neg (Neg); Protein, Urine 2+ (Neg); Urobilinogen, Urine 1+ (Normal)
[2020-09-10 11:52] LABS: Red Blood Cells, Urine 0-2 /hpf (0-2)
[2020-09-10 11:53] LABS: Bacteria Few /hpf; Hyaline Casts 0-2 /lpf (0-2); Mucus Light (0-Heavy); Squamous Epithelial Cells Few /hpf (Few)
[2020-09-10 12:15] LABS: U Amphetamine Screen DETECTED; U Methamphetamine Screen DETECTED
[2020-09-10 12:16] LABS: U Barbituate Screen Not Detected; U Benzodiazapine Screen DETECTED; U Buprenorphine Screen Not Detected; U Cannabinoids Screen DETECTED; U Cocaine Screen Not Detected; U Methadone Screen Not Detected; U Opiates Screen Not Detected; U Oxycodone Screen Not Detected; U Phencyclidine Screen Not Detected; U Propoxyphene Screen Not Detected
[2020-09-10 13:00] LABS: SARS-Cov-2 (COVID-19) PCR, MMC NEGATIVE (NEGATIVE)
[2020-09-10] MEDS ORDERED: HALOPERIDOL10 M2 PO (22:05)
[2020-09-10] MEDS ORDERED: LITHIUM CARBON PO (22:05)
[2020-09-10] MEDS ORDERED: HYDROXYZINE PAM25 MG PO (22:05)
[2020-09-11 11:51] LABS: Lithium 1.02 mmol/L (0.60-1.20)
== END 2020-09-11 12:00 | disposition home or self-care (01) ==
LOC: ER 09:59 → EOR 10:00
PROVIDERS: Emergency Medicine; Physician Assistant; ADMIT Emergency Medicine
DX: F25.1 Schizoaffective disorder, depressive type (principal); F19.10 Other psychoactive substance abuse, uncomplicated; K52.9 Noninfective gastroenteritis and colitis, unspecified; E87.6 Hypokalemia; F15.10 Other stimulant abuse, uncomplicated; K21.9 Gastro-esophageal reflux disease without esophagitis; J44.9 Chronic obstructive pulmonary disease, unspecified; Z79.899 Other long term (current) drug therapy; Z20.822 Contact with and (suspected) exposure to COVID-19
CPT/HCPCS: 36415; 80053; 80178; 81001; 85025; 87086; 93005; 93010; 99285-25; A9270; G0378; G0480; Q3014; U0004

== ENCOUNTER 2020-09-29 11:46 | Observation (INO) | payer MEDICARE, OTHER ==
[~2020-09-29] VITALS: Ht 167.6 cm; Wt 68.0 kg
[~2020-09-29 11:46] MED LIST changes: +HALOPERIDOL10 M2 PO; +HYDROXYZINE PAM25 MG PO; +LITHIUM CARBON PO
[2020-09-29 12:26] LABS: Source, Urine Voided
[2020-09-29 12:31] LABS: Appearance, Urine Clear (Clear); Bilirubin, Urine Neg (Neg); Blood, Urine Neg (Neg); Color, Urine Yellow (P-Yellow); Glucose Qualitative, Urine Neg (Neg); Ketones, Urine Neg (Neg); Leukocyte Esterase, Urine 1+ (Neg); Nitrite, Urine Neg (Neg); Protein, Urine Neg (Neg); Specific Gravity, Urine 1.005 (1.003-1.022); Urobilinogen, Urine NORM (Normal)
[2020-09-29 12:35] LABS: BASOPHILS ABSOLUTE AUTO 0.05 K/mm3 (0.00-0.23); BASOPHILS PERCENT AUTO 1 % (0-2); EOSINOPHILS PERCENT AUTO 3 % (0-6); Hematocrit 43.6 % (37.0-53.0); IMMATURE GRAN ABSOLUTE AUTO 0.02 K/mm3 (0.00-0.10); IMMATURE GRAN PERCENT AUTO 0 % (0-1); LYMPHOCYTES ABSOLUTE AUTO 2.33 K/mm3 (0.84-5.20); LYMPHOCYTES PERCENT AUTO 32 % (21-46); MONOCYTES ABSOLUTE AUTO 0.51 K/mm3 (0.16-1.47); MONOCYTES PERCENT AUTO 7 % (4-13); Mean Corpuscular HGB 30.2 pg (26.0-34.0); Mean Corpuscular HGB Conc 34.4 g/dL (31.5-36.5); Mean Corpuscular Volume 88 fL (80-100); Mean Platelet Volume 8.8 fL (9.1-12.4); NEUTROPHILS ABSOLUTE AUTO 4.22 K/mm3 (1.96-9.15); NEUTROPHILS PERCENT AUTO 58 % (41-73); Platelet Count 425 K/mm3 (150-400); RDW Coefficient Variation 12.3 % (11.7-14.2); RDW Standard Deviation 39.6 fL (35.1-46.3); Red Blood Cell Count 4.97 M/mm3 (4.30-5.90); White Blood Cell Count 7.33 K/mm3 (4.00-11.30)
[2020-09-29 12:47] LABS: Bacteria Rare /hpf; Red Blood Cells, Urine 0-2 /hpf (0-2); Squamous Epithelial Cells Few /hpf (Few)
[2020-09-29 12:57] LABS: Alanine Aminotransfer (ALT/SGP 18 U/L (12-78); Albumin, Blood 3.7 g/dL (3.4-5.0); Albumin/Globulin Ratio 1.1 (0.8-1.8); Alk Phos 72 U/L (50-136); Anion Gap 4 mmol/L (6-16); Aspartate Aminotrans (AST/SGOT 11 U/L (12-37); Bilirubin, Total 0.3 mg/dL (0.1-1.0); Blood Urea Nitrogen 6 mg/dL (8-24); Bun/Creatinine Ratio 8.7 (12.0-20.0); CO2, Blood 27 mmol/L (21-32); Calcium, Blood 9.1 mg/dL (8.5-10.1); Chloride, Blood 106 mmol/L (98-108); Creatinine, Blood 0.69 mg/dL (0.60-1.20); Ethanol (Alcohol), Blood, Med <3 mg/dL; Globulin, Blood 3.3 g/dL (2.2-4.0); Glomerular Filtration Rate >60 (60-); Glucose, Blood 92 mg/dL (70-99); Potassium, Blood 3.6 mmol/L (3.5-5.5); Salicylate 1.7 mg/dL (2.8-20.0); Sodium, Blood 137 mmol/L (136-145)
[2020-09-29 13:06] LABS: Acetaminophen, Random <2.0 ug/mL (10.0-30.0)
[2020-09-29 13:13] LABS: U Amphetamine Screen DETECTED; U Barbituate Screen Not Detected; U Benzodiazapine Screen Not Detected; U Buprenorphine Screen Not Detected; U Cannabinoids Screen DETECTED; U Cocaine Screen Not Detected; U Methadone Screen Not Detected; U Methamphetamine Screen DETECTED; U Opiates Screen Not Detected; U Oxycodone Screen Not Detected; U Phencyclidine Screen Not Detected; U Propoxyphene Screen Not Detected
[2020-09-29 14:38] LABS: SARS-Cov-2 (COVID-19) PCR, MMC NEGATIVE (NEGATIVE)
== END 2020-10-03 22:19 | disposition short-term general hospital (02) ==
LOC: ER 11:46 → EOR 11:47 → ER 13:30 → EOR 10-01 22:19
PROVIDERS: ADMIT Emergency Medicine
DX: F25.1 Schizoaffective disorder, depressive type (principal); F19.10 Other psychoactive substance abuse, uncomplicated; F15.20 Other stimulant dependence, uncomplicated; G89.29 Other chronic pain; F17.210 Nicotine dependence, cigarettes, uncomplicated; Z20.822 Contact with and (suspected) exposure to COVID-19; J44.9 Chronic obstructive pulmonary disease, unspecified; Z79.899 Other long term (current) drug therapy
CPT/HCPCS: 36415; 80053; 81001; 85025; 87086; 99285; A9270; G0378; G0480; J2060; Q3014; U0004

== ENCOUNTER 2020-10-22 03:53 | Observation (INO) | payer MEDICARE, OTHER ==
[~2020-10-22] VITALS: Ht 172.7 cm; Wt 63.5 kg
[2020-10-22 04:18] LABS: Source, Urine Catheter
[2020-10-22 04:26] LABS: Appearance, Urine Clear (Clear); Blood, Urine 1+ (Neg); Color, Urine Amber (P-Yellow); Glucose Qualitative, Urine Neg (Neg); Ketones, Urine 1+ (Neg); Leukocyte Esterase, Urine 1+ (Neg); Nitrite, Urine Neg (Neg); Protein, Urine 2+ (Neg); Urobilinogen, Urine 2+ (Normal)
[2020-10-22 04:27] LABS: Bilirubin, Urine 1+ (Neg)
[2020-10-22 04:34] LABS: Red Blood Cells, Urine 0-2 /hpf (0-2)
[2020-10-22 04:35] LABS: BASOPHILS ABSOLUTE AUTO 0.07 K/mm3 (0.00-0.23); BASOPHILS PERCENT AUTO 1 % (0-2); EOSINOPHILS ABSOLUTE AUTO 0.31 K/mm3 (0.00-0.68); EOSINOPHILS PERCENT AUTO 3 % (0-6); Hematocrit 45.6 % (37.0-53.0); IMMATURE GRAN ABSOLUTE AUTO 0.06 K/mm3 (0.00-0.10); IMMATURE GRAN PERCENT AUTO 1 % (0-1); LYMPHOCYTES ABSOLUTE AUTO 1.83 K/mm3 (0.84-5.20); LYMPHOCYTES PERCENT AUTO 15 % (21-46); MONOCYTES ABSOLUTE AUTO 0.82 K/mm3 (0.16-1.47); MONOCYTES PERCENT AUTO 7 % (4-13); Mean Corpuscular HGB 30.8 pg (26.0-34.0); Mean Corpuscular HGB Conc 35.1 g/dL (31.5-36.5); Mean Corpuscular Volume 88 fL (80-100); NEUTROPHILS ABSOLUTE AUTO 9.31 K/mm3 (1.96-9.15); NEUTROPHILS PERCENT AUTO 75 % (41-73); RDW Coefficient Variation 12.7 % (11.7-14.2); RDW Standard Deviation 40.9 fL (35.1-46.3); Red Blood Cell Count 5.19 M/mm3 (4.30-5.90)
[2020-10-22 04:35] LABS: Bacteria Mod /hpf; Renal Epithelial Few /hpf (0-Rare); Squamous Epithelial Cells Not Seen /hpf (Few)
[2020-10-22 04:36] LABS: Mucus Heavy (0-Heavy)
[2020-10-22 04:37] LABS: Platelet Count 464 K/mm3 (150-400)
[2020-10-22 04:38] LABS: Mean Platelet Volume 9.8 fL (9.1-12.4)
[2020-10-22 04:39] LABS: U Amphetamine Screen Not Detected; U Barbituate Screen Not Detected; U Benzodiazapine Screen Not Detected; U Buprenorphine Screen Not Detected; U Cannabinoids Screen Not Detected; U Cocaine Screen Not Detected; U Methadone Screen Not Detected; U Methamphetamine Screen DETECTED; U Opiates Screen Not Detected; U Oxycodone Screen Not Detected; U Phencyclidine Screen Not Detected; U Propoxyphene Screen Not Detected
[2020-10-22 04:51] LABS: Alanine Aminotransfer (ALT/SGP 21 U/L (12-78); Albumin, Blood 3.7 g/dL (3.4-5.0); Albumin/Globulin Ratio 0.9 (0.8-1.8); Alk Phos 83 U/L (50-136); Anion Gap 8 mmol/L (6-16); Aspartate Aminotrans (AST/SGOT 36 U/L (12-37); Bilirubin, Total 0.4 mg/dL (0.1-1.0); Blood Urea Nitrogen 12 mg/dL (8-24); Bun/Creatinine Ratio 14.7 (12.0-20.0); CO2, Blood 22 mmol/L (21-32); CPK Creatine Kinase 187 U/L (39-308); Calcium, Blood 9.4 mg/dL (8.5-10.1); Chloride, Blood 105 mmol/L (98-108); Creatine Kinase MB 1.2 ng/mL (0.0-3.6); Creatine Kinase MB Index 0.6 (0.0-4.0); Creatinine, Blood 0.82 mg/dL (0.60-1.20); Ethanol (Alcohol), Blood, Med <3 mg/dL; Globulin, Blood 4.1 g/dL (2.2-4.0); Glomerular Filtration Rate >60 (60-); Glucose, Blood 115 mg/dL (70-99); Magnesium, Blood 2.4 mg/dL (1.6-2.4); Potassium, Blood 4.2 mmol/L (3.5-5.5); Salicylate <1.7 mg/dL (2.8-20.0); Sodium, Blood 135 mmol/L (136-145); Total Protein, Blood 7.8 g/dL (6.4-8.2)
[2020-10-22 04:56] LABS: Acetaminophen, Random <2.0 ug/mL (10.0-30.0)
[2020-10-22 05:43] LABS: SARS-Cov-2 (COVID-19) PCR, MMC NEGATIVE (NEGATIVE)
== END 2020-10-22 15:03 | disposition home or self-care (01) ==
LOC: ER 03:53 → EOR 03:54
PROVIDERS: ADMIT Emergency Medicine
DX: F15.259 Other stimulant dependence with stimulant-induced psychotic disorder, unspecified (principal); E86.0 Dehydration; F25.9 Schizoaffective disorder, unspecified; F17.210 Nicotine dependence, cigarettes, uncomplicated; Z20.822 Contact with and (suspected) exposure to COVID-19; M54.9 Dorsalgia, unspecified; G89.29 Other chronic pain; K21.9 Gastro-esophageal reflux disease without esophagitis; J44.9 Chronic obstructive pulmonary disease, unspecified; F41.9 Anxiety disorder, unspecified; Z78.1 Physical restraint status
CPT/HCPCS: 36415; 51701; 71045; 80053; 81001; 82550; 82553; 83735; 85025; 87086; 93005; 93010; 96361-59; 96372-59; 96374-59; 96375-59; 99285-25; G0378; G0480; J1200; J1630; J2060; J7120; U0004

== ENCOUNTER 2020-11-21 17:36 | Observation (INO) | payer MEDICARE, OTHER ==
[~2020-11-21] VITALS: Ht 157.5 cm; Wt 59.0 kg
[2020-11-21 18:04] LABS: Source, Urine Clean Catch
[2020-11-21 18:15] LABS: Appearance, Urine Hazy (Clear); Bilirubin, Urine Neg (Neg); Blood, Urine Neg (Neg); Color, Urine Yellow (P-Yellow); Glucose Qualitative, Urine Neg (Neg); Ketones, Urine Neg (Neg); Leukocyte Esterase, Urine 1+ (Neg); Nitrite, Urine Neg (Neg); Protein, Urine 2+ (Neg); Urobilinogen, Urine NORM (Normal)
[2020-11-21 18:34] LABS: U Amphetamine Screen Not Detected; U Barbituate Screen Not Detected; U Benzodiazapine Screen Not Detected; U Buprenorphine Screen Not Detected; U Cannabinoids Screen Not Detected; U Cocaine Screen Not Detected; U Methadone Screen Not Detected; U Methamphetamine Screen Not Detected; U Opiates Screen Not Detected; U Oxycodone Screen Not Detected; U Phencyclidine Screen Not Detected; U Propoxyphene Screen Not Detected
[2020-11-21 18:44] LABS: Amorphous Light (0-Heavy); Bacteria Mod /hpf; Hyaline Casts Rare /lpf (0-2); Red Blood Cells, Urine 0-2 /hpf (0-2); Squamous Epithelial Cells Rare /hpf (Few); White Blood Cells, Urine 0-2 /hpf (0-5)
[2020-11-21 19:43] LABS: BASOPHILS ABSOLUTE AUTO 0.07 K/mm3 (0.00-0.23); BASOPHILS PERCENT AUTO 1 % (0-2); EOSINOPHILS ABSOLUTE AUTO 0.04 K/mm3 (0.00-0.68); EOSINOPHILS PERCENT AUTO 0 % (0-6); Hematocrit 39.4 % (37.0-53.0); Hemoglobin 13.7 g/dL (13.5-17.5); IMMATURE GRAN ABSOLUTE AUTO 0.03 K/mm3 (0.00-0.10); IMMATURE GRAN PERCENT AUTO 0 % (0-1); LYMPHOCYTES ABSOLUTE AUTO 1.97 K/mm3 (0.84-5.20); LYMPHOCYTES PERCENT AUTO 15 % (21-46); MONOCYTES PERCENT AUTO 9 % (4-13); Mean Corpuscular HGB 30.1 pg (26.0-34.0); Mean Corpuscular HGB Conc 34.8 g/dL (31.5-36.5); Mean Corpuscular Volume 87 fL (80-100); Mean Platelet Volume 9.3 fL (9.1-12.4); NEUTROPHILS ABSOLUTE AUTO 10.21 K/mm3 (1.96-9.15); NEUTROPHILS PERCENT AUTO 76 % (41-73); Platelet Count 460 K/mm3 (150-400); RDW Coefficient Variation 12.5 % (11.7-14.2); RDW Standard Deviation 39.3 fL (35.1-46.3); Red Blood Cell Count 4.55 M/mm3 (4.30-5.90); White Blood Cell Count 13.52 K/mm3 (4.00-11.30)
[2020-11-21] MEDS ORDERED: LITHIUM CARBON PO (20:11)
[2020-11-21] MEDS ORDERED: HALOPERIDOL10 M2 PO (20:11)
[2020-11-21] MEDS ORDERED: HYDROXYZINE PAM25 MG PO (20:11)
[2020-11-21] MEDS ORDERED: TRAZ50 PO (20:12)
[2020-11-21 20:13] LABS: Ethanol (Alcohol), Blood, Med <3 mg/dL; Salicylate <1.7 mg/dL (2.8-20.0)
[2020-11-21 20:28] LABS: Acetaminophen, Random <2.0 ug/mL (10.0-30.0); Alanine Aminotransfer (ALT/SGP 20 U/L (12-78); Albumin, Blood 3.8 g/dL (3.4-5.0); Albumin/Globulin Ratio 1.1 (0.8-1.8); Alk Phos 63 U/L (50-136); Anion Gap 4 mmol/L (6-16); Aspartate Aminotrans (AST/SGOT 36 U/L (12-37); Bilirubin, Total 0.5 mg/dL (0.1-1.0); Blood Urea Nitrogen 7 mg/dL (8-24); Bun/Creatinine Ratio 7.4 (12.0-20.0); CO2, Blood 34 mmol/L (21-32); Calcium, Blood 9.3 mg/dL (8.5-10.1); Chloride, Blood 100 mmol/L (98-108); Creatinine, Blood 0.95 mg/dL (0.60-1.20); Globulin, Blood 3.4 g/dL (2.2-4.0); Glomerular Filtration Rate >60 (60-); Glucose, Blood 80 mg/dL (70-99); Potassium, Blood 3.4 mmol/L (3.5-5.5); Sodium, Blood 138 mmol/L (136-145); Total Protein, Blood 7.2 g/dL (6.4-8.2)
[2020-11-21 22:25] LABS: SARS-Cov-2 (COVID-19) PCR, MMC NEGATIVE (NEGATIVE)
[2020-11-25] MEDS ORDERED: QUET200 PO (23:29)
[2020-11-25] MEDS ORDERED: PALI6TA PO (23:29)
== END 2020-11-25 23:34 | disposition home or self-care (01) ==
LOC: ER 17:36 → EOR 22:39
PROVIDERS: Physician Assistant; ADMIT Student in an Organized Health Care Education/Training Program
DX: F25.1 Schizoaffective disorder, depressive type (principal); F31.9 Bipolar disorder, unspecified; J44.9 Chronic obstructive pulmonary disease, unspecified; F17.210 Nicotine dependence, cigarettes, uncomplicated; K21.9 Gastro-esophageal reflux disease without esophagitis; G89.29 Other chronic pain; F19.10 Other psychoactive substance abuse, uncomplicated; Z20.822 Contact with and (suspected) exposure to COVID-19
CPT/HCPCS: 80053; 81001; 85025; 87086; 99285; A9270; G0378; G0480; Q3014; U0004

== ENCOUNTER 2020-11-29 15:14 | Emergency (ER) | payer MEDICARE, OTHER ==
[~2020-11-29] VITALS: Ht 167.6 cm; Wt 68.0 kg
[~2020-11-29 15:14] MED LIST changes: +PALI6TA PO; +QUET200 PO; +TRAZ50 PO
[2020-11-29 17:30] LABS: Calcium, Ionized (POC) 1.22 mmol/L (1.10-1.46); Chloride (POC) 104 mmol/L (98-108); Creatinine (POC) 0.7 mg/dL (0.8-1.3); Glucose (ISTAT POC) 96 mg/dL (70-99); Potassium (POC) 3.9 mmol/L (3.5-5.5); Sodium (POC) 140 mmol/L (135-148); Total CO2 (POC) 23 mmol/L (21-32)
[2020-11-29 18:39] LABS: BASOPHILS ABSOLUTE AUTO 0.09 K/mm3 (0.00-0.23); BASOPHILS PERCENT AUTO 1 % (0-2); EOSINOPHILS ABSOLUTE AUTO 0.22 K/mm3 (0.00-0.68); EOSINOPHILS PERCENT AUTO 1 % (0-6); Hematocrit 45.6 % (37.0-53.0); Hemoglobin 15.1 g/dL (13.5-17.5); IMMATURE GRAN ABSOLUTE AUTO 0.07 K/mm3 (0.00-0.10); IMMATURE GRAN PERCENT AUTO 0 % (0-1); LYMPHOCYTES PERCENT AUTO 16 % (21-46); MONOCYTES ABSOLUTE AUTO 1.63 K/mm3 (0.16-1.47); MONOCYTES PERCENT AUTO 10 % (4-13); Mean Corpuscular HGB 29.3 pg (26.0-34.0); Mean Corpuscular HGB Conc 33.1 g/dL (31.5-36.5); Mean Corpuscular Volume 89 fL (80-100); NEUTROPHILS PERCENT AUTO 72 % (41-73); RDW Coefficient Variation 12.7 % (11.7-14.2); RDW Standard Deviation 41.8 fL (35.1-46.3); Red Blood Cell Count 5.15 M/mm3 (4.30-5.90); White Blood Cell Count 15.81 K/mm3 (4.00-11.30)
[2020-11-29 18:48] LABS: Mean Platelet Volume 10.2 fL (9.1-12.4); Platelet Count 412 K/mm3 (150-400)
[2020-11-29 19:13] LABS: Alanine Aminotransfer (ALT/SGP 33 U/L (12-78); Albumin, Blood 3.1 g/dL (3.4-5.0); Albumin/Globulin Ratio 0.7 (0.8-1.8); Alk Phos 80 U/L (50-136); Anion Gap 9 mmol/L (6-16); Aspartate Aminotrans (AST/SGOT 29 U/L (12-37); Bilirubin, Total 0.4 mg/dL (0.1-1.0); Blood Urea Nitrogen 11 mg/dL (8-24); Bun/Creatinine Ratio 18.9 (12.0-20.0); CO2, Blood 22 mmol/L (21-32); Calcium, Blood 9.8 mg/dL (8.5-10.1); Chloride, Blood 107 mmol/L (98-108); Creatinine, Blood 0.58 mg/dL (0.60-1.20); Globulin, Blood 4.2 g/dL (2.2-4.0); Glomerular Filtration Rate >60 (60-); Glucose, Blood 97 mg/dL (70-99); Potassium, Blood 4.2 mmol/L (3.5-5.5); Sodium, Blood 138 mmol/L (136-145); Total Protein, Blood 7.3 g/dL (6.4-8.2)
[2020-11-29 19:14] LABS: Source, Urine Clean Catch
[2020-11-29 19:19] LABS: Blood, Urine 2+ (Neg); Glucose Qualitative, Urine Neg (Neg); Ketones, Urine 4+ (Neg); Leukocyte Esterase, Urine 1+ (Neg); Nitrite, Urine Neg (Neg); Protein, Urine 2+ (Neg); Urobilinogen, Urine 1+ (Normal)
[2020-11-29 19:37] LABS: Appearance, Urine Hazy (Clear); Bilirubin, Urine 1+ (Neg); Color, Urine Amber (P-Yellow)
[2020-11-29 19:40] LABS: Amorphous Light (0-Heavy); Bacteria Rare /hpf; Mucus Light (0-Heavy); Red Blood Cells, Urine Rare /hpf (0-2); Squamous Epithelial Cells Rare /hpf (Few)
== END 2020-11-29 21:05 | disposition home or self-care (01) ==
LOC: ER 15:14
PROVIDERS: Physician Assistant
DX: Z00.01 Encounter for general adult medical examination with abnormal findings (principal); R00.0 Tachycardia, unspecified; R10.10 Upper abdominal pain, unspecified; D72.829 Elevated white blood cell count, unspecified; F17.210 Nicotine dependence, cigarettes, uncomplicated; J44.9 Chronic obstructive pulmonary disease, unspecified; F15.90 Other stimulant use, unspecified, uncomplicated; K21.9 Gastro-esophageal reflux disease without esophagitis; Z79.899 Other long term (current) drug therapy
CPT/HCPCS: 36415; 80047; 80053; 81001; 85014; 85025; 87086; 96361; 96374; 96375; 99284-25; A9270; J1885; J2060; J7030

== ENCOUNTER 2020-12-07 01:55 | Observation (INO) | payer MEDICARE, OTHER ==
[~2020-12-07] VITALS: Ht 167.6 cm; Wt 68.0 kg
[2020-12-07] MEDS ORDERED: QUETIAPINE FUMA50 M6 PO (04:29)
[2020-12-07 04:46] LABS: BASOPHILS ABSOLUTE AUTO 0.11 K/mm3 (0.00-0.23); BASOPHILS PERCENT AUTO 1 % (0-2); EOSINOPHILS ABSOLUTE AUTO 0.38 K/mm3 (0.00-0.68); EOSINOPHILS PERCENT AUTO 3 % (0-6); Hematocrit 43.3 % (37.0-53.0); Hemoglobin 14.4 g/dL (13.5-17.5); IMMATURE GRAN ABSOLUTE AUTO 0.05 K/mm3 (0.00-0.10); IMMATURE GRAN PERCENT AUTO 0 % (0-1); LYMPHOCYTES ABSOLUTE AUTO 3.89 K/mm3 (0.84-5.20); LYMPHOCYTES PERCENT AUTO 29 % (21-46); MONOCYTES ABSOLUTE AUTO 1.01 K/mm3 (0.16-1.47); MONOCYTES PERCENT AUTO 8 % (4-13); Mean Corpuscular HGB 29.8 pg (26.0-34.0); Mean Corpuscular HGB Conc 33.3 g/dL (31.5-36.5); Mean Corpuscular Volume 90 fL (80-100); Mean Platelet Volume 9.2 fL (9.1-12.4); NEUTROPHILS ABSOLUTE AUTO 7.99 K/mm3 (1.96-9.15); NEUTROPHILS PERCENT AUTO 60 % (41-73); Platelet Count 648 K/mm3 (150-400); RDW Coefficient Variation 13.3 % (11.7-14.2); RDW Standard Deviation 43.6 fL (35.1-46.3); Red Blood Cell Count 4.83 M/mm3 (4.30-5.90); White Blood Cell Count 13.43 K/mm3 (4.00-11.30)
[2020-12-07 04:47] LABS: Source, Urine Clean Catch
[2020-12-07 04:49] LABS: Bilirubin, Urine Neg (Neg); Blood, Urine Neg (Neg); Glucose Qualitative, Urine Neg (Neg); Ketones, Urine Neg (Neg); Leukocyte Esterase, Urine Neg (Neg); Nitrite, Urine Neg (Neg); Protein, Urine 1+ (Neg); Urobilinogen, Urine 2+ (Normal); pH, Urine 6.5 (5.0-8.0)
[2020-12-07 04:57] LABS: Acetaminophen, Random <2.0 ug/mL (10.0-30.0); Alanine Aminotransfer (ALT/SGP 19 U/L (12-78); Albumin, Blood 3.3 g/dL (3.4-5.0); Albumin/Globulin Ratio 0.9 (0.8-1.8); Alk Phos 80 U/L (50-136); Anion Gap 5 mmol/L (6-16); Aspartate Aminotrans (AST/SGOT 14 U/L (12-37); Bilirubin, Total 0.2 mg/dL (0.1-1.0); Blood Urea Nitrogen 6 mg/dL (8-24); Bun/Creatinine Ratio 8.1 (12.0-20.0); CO2, Blood 28 mmol/L (21-32); Calcium, Blood 8.4 mg/dL (8.5-10.1); Chloride, Blood 106 mmol/L (98-108); Creatinine, Blood 0.74 mg/dL (0.60-1.20); Ethanol (Alcohol), Blood, Med <3 mg/dL; Globulin, Blood 3.8 g/dL (2.2-4.0); Glomerular Filtration Rate >60 (60-); Glucose, Blood 97 mg/dL (70-99); Salicylate 3.9 mg/dL (2.8-20.0); Sodium, Blood 139 mmol/L (136-145); Total Protein, Blood 7.1 g/dL (6.4-8.2)
[2020-12-07 05:03] LABS: U Amphetamine Screen DETECTED; U Barbituate Screen Not Detected; U Benzodiazapine Screen Not Detected; U Buprenorphine Screen Not Detected; U Cannabinoids Screen Not Detected; U Cocaine Screen Not Detected; U Methadone Screen Not Detected; U Methamphetamine Screen DETECTED; U Opiates Screen Not Detected; U Oxycodone Screen Not Detected; U Phencyclidine Screen Not Detected; U Propoxyphene Screen Not Detected
[2020-12-07 05:04] LABS: Appearance, Urine Clear (Clear); Color, Urine Yellow (P-Yellow)
[2020-12-07 05:35] LABS: SARS-Cov-2 (COVID-19) PCR, MMC NEGATIVE (NEGATIVE)
== END 2020-12-08 15:21 ==
LOC: ER 01:55 → EOR 01:56
PROVIDERS: ADMIT Emergency Medicine
DX: F25.1 Schizoaffective disorder, depressive type (principal); J44.9 Chronic obstructive pulmonary disease, unspecified; F17.210 Nicotine dependence, cigarettes, uncomplicated; K21.9 Gastro-esophageal reflux disease without esophagitis; F19.10 Other psychoactive substance abuse, uncomplicated; M54.9 Dorsalgia, unspecified; G89.29 Other chronic pain; Z20.822 Contact with and (suspected) exposure to COVID-19; Z91.5 Personal history of self-harm
CPT/HCPCS: 36415; 80053; 85025; 93005; 93010; 99285-25; A9270; G0378; G0480; U0004

== ENCOUNTER 2022-06-23 11:10 | Inpatient (IN) | payer MEDICARE, OTHER ==
[~2022-06-23] VITALS: Ht 167.6 cm; Wt 66.5 kg
[~2022-06-23 11:10] MED LIST changes: -ABILIFY MYCITE PO; -ABILIFY MYCITE15 M2; -MIRT15 PO; -Vistaril50 MG PO; -[UNRECOGNIZED DRUG - CODE] PO
[2022-06-23 11:41] LABS: Base Excess Venous 10.1 mmol/L; Bicarbonate Venous 30.5 mmol/L (24.0-30.0); PCO2 Venous 74.4 mmHg (38-42)
[2022-06-23 11:42] LABS: PO2 Venous 39.6 mmHg (38-42)
[2022-06-23 12:49] LABS: Base Excess Venous 10.3 mmol/L; Bicarbonate Venous 31.3 mmol/L (24.0-30.0); PCO2 Venous 70.3 mmHg (38-42); pH Blood Venous 7.32 (7.34-7.37)
[2022-06-23] MEDS ORDERED: Vistaril50 MG PO (13:16)
[2022-06-23 13:28] LABS: Bun/Creatinine Ratio 19.4 (12.0-20.0); Calcium, Blood 8.4 mg/dL (8.5-10.1); Creatinine, Blood 0.62 mg/dL (0.60-1.20); Potassium, Blood 5.4 mmol/L (3.5-5.5)
[2022-06-23 13:32] LABS: U Amphetamine Screen Not Detected; U Methamphetamine Screen Not Detected
[2022-06-23 13:33] LABS: U Barbituate Screen Not Detected; U Benzodiazapine Screen Not Detected; U Buprenorphine Screen Not Detected; U Cannabinoids Screen Not Detected; U Cocaine Screen Not Detected; U Methadone Screen DETECTED; U Opiates Screen Not Detected; U Oxycodone Screen Not Detected; U Phencyclidine Screen Not Detected; U Propoxyphene Screen Not Detected
[2022-06-23] MEDS ORDERED: ABILIFY MYCITE15 M2 (13:42)
[2022-06-23] MEDS ORDERED: Buspirone HCl15 MG PO (13:43)
[2022-06-23] MEDS ORDERED: [UNRECOGNIZED DRUG - CODE] PO (13:43)
[2022-06-23] MEDS ORDERED: ABILIFY MYCITE PO (13:44)
[2022-06-23 14:24] LABS: BASOPHILS ABSOLUTE AUTO 0.04 K/mm3 (0.00-0.23); BASOPHILS PERCENT AUTO 0 % (0-2); EOSINOPHILS PERCENT AUTO 0 % (0-6); IMMATURE GRAN ABSOLUTE AUTO 0.04 K/mm3 (0.00-0.10); IMMATURE GRAN PERCENT AUTO 0 % (0-1); LYMPHOCYTES ABSOLUTE AUTO 0.49 K/mm3 (0.84-5.20); LYMPHOCYTES PERCENT AUTO 4 % (21-46); MONOCYTES ABSOLUTE AUTO 0.46 K/mm3 (0.16-1.47); MONOCYTES PERCENT AUTO 4 % (4-13); Mean Corpuscular HGB 30.2 pg (26.0-34.0); Mean Corpuscular HGB Conc 34.2 g/dL (31.5-36.5); Mean Corpuscular Volume 88 fL (80-100); Mean Platelet Volume 10.2 fL (9.1-12.4); NEUTROPHILS ABSOLUTE AUTO 11.24 K/mm3 (1.96-9.15); NEUTROPHILS PERCENT AUTO 92 % (41-73); Platelet Count 264 K/mm3 (150-400); RDW Coefficient Variation 13.5 % (11.7-14.2); RDW Standard Deviation 43.8 fL (35.1-46.3); Red Blood Cell Count 4.31 M/mm3 (4.30-5.90); White Blood Cell Count 12.27 K/mm3 (4.00-11.30)
[2022-06-23 16:21] LABS: Lithium <0.20 mmol/L (0.60-1.20)
[2022-06-23 17:17] LABS: Base Excess Venous 11.4 mmol/L; Bicarbonate Venous 33.4 mmol/L (24.0-30.0); pH Blood Venous 7.44 (7.34-7.37)
--- NOTE | 2022-06-23 17:31 | NUR ---
Echocardiogram completed.
--- NOTE | 2022-06-23 18:49 | NUR ---
ICU ADMISSION / SHIFT SUMMARY: REPORT RECEVIED FROM FRANCINE Cannon RN IN ED. PT ARRIVED TO ICU-06 AT APPROX 1430. ON ARRIVAL, THE PT IS USING 6L NC W/ O2 SATS APPROX 90%. HE IS A&O TO ALL, BUT SOMEWHAT DROWSY & VISIBLY DYSNPEIC. HE IS ABLE TO MOVE HIMSELF FROM GURNEY TO BED W/O DIFFICULTY. PRECEDEX INFUSING AT 0.7 MCG/KG/HR FOR AGITATION & REFUSAL TO WEAR BIPAP, HE IS NOW COOPERATIVE W/ CARE MEASURES. LS ARE COARSE W/ EXP WHEEZING T/O. BIPAP PLACED W/ SETTINGS: 16/6 & 30% FIO2, TITRATED UP TO 50% FIO2 FOR DESATS TO 88% WHILE RESTING. MONITOR SHOWS ST W/ HR 120s, NOW SR W/ HR 90s, BP STABLE. PT NPO R/T BIPAP DEPENDENCE. HE VOIDS USING URINAL ON ARRIVAL TO UNIT, BUT HAS SINCE BEEN INCONTINENT WHILE SLEEPING SOUNDLY. LINENS CHANGED & ATTENDS PLACED. SKIN CONDITION OVERALL INTACT, SMALL SCAB TO LOW BACK W/ REDNESS SURROUNDING, BLANCHABLE. Q2H REPOSITIONING TO MAINTAIN SKIN INTEGRITY. ADMISSION COMPLETE EXCEPT FOR MEDICATION RECONCILLIATION. [facility] HAS FAXED CURRENT MED LIST THIS EVENING. WILL CONTINUE TO MONITOR & REPORT OFF TO ONCOMING RN.
[2022-06-23 19:23] LABS: Adenovirus Not Detected (NOT DETECT); Bordetella pertussis Not Detected (NOT DETECT); Chlamydophila pneumoniae Not Detected (NOT DETECT); Coronavirus 229E Not Detected (NOT DETECT); Coronavirus HKU1 Not Detected (NOT DETECT); Coronavirus NL63 Not Detected (NOT DETECT); Coronavirus OC43 Not Detected (NOT DETECT); Human Metapneumovirus Not Detected (NOT DETECT); Human Rhinovirus/Enterovirus Not Detected (NOT DETECT); Influenza A/2009-H1 Not Detected (NOT DETECT); Influenza A/H1 Not Detected (NOT DETECT); Influenza A/H3 Not Detected (NOT DETECT); Influenza B Not Detected (NOT DETECT); Mycoplasma pneumoniae Not Detected (NOT DETECT); Parainfluenza Virus 1 Not Detected (NOT DETECT); Parainfluenza Virus 2 Not Detected (NOT DETECT); Parainfluenza Virus 3 Not Detected (NOT DETECT); Parainfluenza Virus 4 Not Detected (NOT DETECT); Respiratory Syncytial Virus Not Detected (NOT DETECT); SARS-Cov-2 (COVID-19), BioFire Not Detected (NOT DETECT)
--- NOTE | 2022-06-23 20:36 | NUR ---
PATIENT APPEARS TO BE SLEEPING. BIPAP 16/6 FIO2 55% IN PLACE. AWAKENS TO VERBAL STIMULI. WHEN AWAKE VERBALIZING THAT HE FEELS URGE TO VOID, ATTENDS SOAKING WET, CONDOM CATH PLACED TO HELP CATCH URINE. PATIENT REQUESTING SOMETHING TO HELP HIM SLEEP, EXPLAINED THAT HE IS RECEIVING A CONTINUOUS MEDICATION TO HELP HIM RELAX. PRECEDEX 0.7 MCG INFUSING. PATIENT GIVEN SHORT BREAK FROM BIPAP WITH 6L/NC. AUDIBLE WHEEZES WHEN BIPAP OFF. PATIENT ABLE TO USE SUCTION TOOTHBRUSH WITHOUT DIFFICULTY. REPOSITIONING SELF IN BED FOR COMFORT, ABLE TO BOOST SELF UP TO TOP OF BED WITH SOME INCREASED SOB WITH EXERTION. PATIENT CONTINUES TO ASK FOR SOMETHING FOR PAIN, ASKING FOR BARBOSA CATH BECAUSE FEELS IF HE IS NOT ABLE TO VOID. BECOMING ANGRY WHEN EXPLAINED THAT I NEED TO CALL DOCTOR FOR PAIN MEDICATIONS.
[2022-06-23] MEDS ORDERED: MIRT15 PO (20:57)
[2022-06-23 22:00] LABS: Source, Urine Foley catheter
--- NOTE | 2022-06-23 22:03 | NUR ---
BARBOSA CATH PLACED DRAINING OVER 900 CC OF CLEAR YELLOW URINE. SPEC SENT TO LAB PER PROTOCOL.
[2022-06-23 22:06] LABS: Bilirubin, Urine Neg (Neg); Blood, Urine 3+ (Neg); Glucose Qualitative, Urine Neg (Neg); Ketones, Urine Neg (Neg); Leukocyte Esterase, Urine Neg (Neg); Nitrite, Urine Neg (Neg); Protein, Urine 2+ (Neg); Specific Gravity, Urine 1.005 (1.003-1.022); Urobilinogen, Urine NORM (Normal)
[2022-06-23 22:19] LABS: Appearance, Urine Clear (Clear); Color, Urine Pale Yellow (P-Yellow)
[2022-06-23 22:20] LABS: Bacteria Not Seen /hpf; Red Blood Cells, Urine 0-2 /hpf (0-2); Squamous Epithelial Cells Rare /hpf (Few); White Blood Cells, Urine 0-2 /hpf (0-5)
[2022-06-24 03:40] LABS: Hematocrit 36.7 % (37.0-53.0); Mean Corpuscular HGB 29.3 pg (26.0-34.0); Mean Corpuscular HGB Conc 32.7 g/dL (31.5-36.5); Mean Corpuscular Volume 90 fL (80-100); Mean Platelet Volume 10.2 fL (9.1-12.4); Platelet Count 251 K/mm3 (150-400); RDW Coefficient Variation 13.8 % (11.7-14.2); RDW Standard Deviation 45.9 fL (35.1-46.3); Red Blood Cell Count 4.09 M/mm3 (4.30-5.90); White Blood Cell Count 8.09 K/mm3 (4.00-11.30)
--- NOTE | 2022-06-24 03:41 | NUR ---
PATIENT SLEEPING AWAKENS WITH A START, TO LOUD VERBAL STIMULI. A&O X3. AFTER HARSH MOIST COUGH BIOX DROPPING DOWN TO 87% OXYGEN INCREASED TO 5L/NC FROM 3L/NC. PATIENT ASKING FOR PAIN MEDICATIONS FOR PAIN WITH COUGH, PLAN TO CONSULT [facility] IN AM. PATIENT VERBALIZED UNDERSTANDING, THE REQUESTING SOMETHING FOR ANXIETY, PRECEDEX DRIP CONTINUES. PATIENT NOW RESTING QUIETLY WATCHING TV
[2022-06-24 03:59] LABS: Albumin/Globulin Ratio 0.9 (0.8-1.8); Bilirubin, Total 0.4 mg/dL (0.1-1.0); Bun/Creatinine Ratio 25.4 (12.0-20.0); Calcium, Blood 8.9 mg/dL (8.5-10.1); Creatinine, Blood 0.51 mg/dL (0.60-1.20); Globulin, Blood 3.5 g/dL (2.2-4.0); Magnesium, Blood 2.5 mg/dL (1.6-2.4); Total Protein, Blood 6.5 g/dL (6.4-8.2)
[2022-06-24 04:01] LABS: BAND PERCENT MAN 1 % (0-8); BASOPHILS PERCENT MAN 0 % (0-2); EOSINOPHILS PERCENT MAN 0 % (0-6); LYMPHOCYTES % ATYPICAL MANUAL 2 % (0-0); LYMPHOCYTES ABSOLUTE MAN 0.97 K/mm3 (0.84-5.20); LYMPHOCYTES PERCENT MAN 10 % (21-46); MONOCYTES ABSOLUTE MAN 0.16 K/mm3 (0.16-1.47); MONOCYTES PERCENT MAN 2 % (4-13); NEUTROPHILS ABSOLUTE MAN 6.95 K/mm3 (1.96-9.15); SEG NEUTROPHILS PERCENT MAN 85 % (41-73); TOTAL CELLS COUNTED 100
--- NOTE | 2022-06-24 06:15 | NUR ---
PATIENT FEELING RESTLESS, AUDIBLE WHEEZES, HARSH NONPRODUCTIVE COUGH. PATIENT AGREEABLE TO PUTTING BIPAP BACK ON IF HE CAN TAKE IT BACK OFF. BIPAP 16/8 FIO2 55% PLACED. PRECEDEX TITRATED BACK UP TO 0.7 MCG TO HELP PATIENT TO RELAX
--- NOTE | 2022-06-24 06:50 | NUR ---
SUMMARY PATIENT REFUSING BIPAP MOST OF THE NIGHT. SLEEPING WITH 3L/NC MOST OF THE NIGHT. WHEN AWAKE BECOMING ANXIOUS AND STARTS GETTING AUDIBLE WHEEZES. PRECEDEX DRIP CONTINUES NOW BACK UP TO 0.7 MCG. PATIENT ABLE TO WEAR BIPAP FOR 5 MIN BEFORE GOING BACK TO 6L/NC.
--- NOTE | 2022-06-24 07:25 | NUR ---
ASSUMED CARE: REPORT RECEIVED FROM LU Payan RN. ASSUMED CARE OF THIS PT AT APPROX 0700. ON ASSESSMENT, THE PT IS RESTING QUIETLY. HE AWAKENS EASILY TO VERBAL STIMULUS & IS ORIENTED TO ALL AT THAT TIME. HE STS FEELING ANXIOUS, BUT IMPROVED SLIGHTLY SINCE ATIVAN ADMIN BY ROW BOSS HOEING RN. HE IS SOMEWHAT DROWSY & DIFFICULT TO UNDERSTAND R/T MUMBLED SPEECH. LS ARE WHEEZING T/O, PT CURRENTLY REFUSING BIPAP R/T ANXIETY. HE IS ON 6L NC W/ O2 SATS 89-92% ON AVG. MONITOR SHOWS SR W/ HR 80-90s, BP STABLE. PT HAS NO GI COMPLAINTS THIS AM & IS TOLERATING SMALL AMNTS OF PO INTAKE WELL. BARBOSA PLACED DURING ROW BOSS HOEING FOR RETENTION IS PATENT/ DRAINING CLEAR YELLOW URINE. SKIN CONDITION OVERALL INTACT, SMALL SCABS TO LOW BACK & BILAT KNEES ARE INTACT & UNCHANGED. PT REPOSITIONS SELF FOR COMFORT & REQUESTS ASSISTANCE PRN. WILL CONTINUE TO MONITOR & UPDATE NEEDED.
--- NOTE | 2022-06-24 08:10 | NUR ---
DR PRYOR: PROVIDER AT BEDSIDE THIS AM TO EVAL PT. DISCUSSED PT's CONTINUED ANXIETY & REQUESTED THAT SOME OF HIS HOME PSYCH MEDS BE RESUMED TO HELP WITH THIS ISSUE. PROVIDER STS SHE WILL REVIEW RECONCILED MEDS & PLACE ORDERS PRN. SHE REQUESTS THAT MEASUREMENT OPERATOR BE CONSULTED REGARDING THIS PT's CURRENT CONDITION W/ COMORBIDITIES OF COPD, ASTHMA & HOME O2 USE. DR ADLER NOTIFIED BY THIS RN. NO OTHER CHANGES AT THIS TIME.
--- NOTE | 2022-06-24 09:25 | NUR ---
DR ADLER: PROVIDER AT BEDSIDE THIS AM TO EVAL PT AFTER BEING CONSULTED BY DR PRYOR. HE FEELS THAT THE PT IS TOLERATING THE NASAL CANNULA WELL & WOULD LIKE THE O2 TITRATED DOWN TO PT's HOME DOSE OF 3L NC TOLERATED. ORDERS PLACED TO RESUME PT's HOME PSYCHIATRIC MEDICATIONS & PRN ATIVAN ORDERED FOR PT's EPISODES OF INCREASED ANXIETY & ASSOCIATED SOB/ DESATS. NO OTHER CHANGES AT THIS TIME.
--- NOTE | 2022-06-24 18:35 | NUR ---
SHIFT SUMMARY: NO ACUTE CHANGES SINCE PRIOR UPDATES. PT REMAINS PLEASANT & COOPERATIVE W/ CARE MEASURES. HE CONTINUES TO EXPERIENCE EPISODES OF INCREASED ANXIETY IN WHICH HE BECOMES INCREASINGLY WHEEZY & DESATS TO 87%. LS DIM, WHEEZING T/O. PT CURRENTLY ON 5L NC W/ O2 SATS > 90% ON AVG. MONITOR SHOWS SR-ST W/ HR 80-120s, INCREASED W/ ANXIETY EPISODES. BP STABLE. PT HAS NO GI COMPLAINTS, TOLERATING SMALL AMNTS PO INTAKE WELL. BARBOSA PATENT/ DRAINING LARGE AMNTS CLEAR YELLOW URINE. MAINTAINENCE IVF STOPPED PER DR ADLER, PT IS DRINKING ADEQUATE AMNTS PO WATER. SKIN CONDITION OVERALL INTACT, SMALL SCABS NOTED IN ASSESSMENT ARE UNCHANGED. PT REPOSITIONS SELF FREQUENTLY OR REQUESTS STAFF ASSIST APPROPRIATELY. WILL CONTINUE TO MONITOR & REPORT OFF TO ONCOMING RN.
--- NOTE | 2022-06-24 19:22 | NUR ---
ASSUMED CARE. PT AOX2, CONFUSED ON DATE AND TIME. PLEASANT. HUNGRY AND ASKING FOR SNACKS, PUDDING AND JUICE GIVEN. ATE 100%. AUDIABLE WHEEZING NOTED, LS EXP. WHEEZES T/O. ON 5L NC WITH SATS 90-92% WHEN RESTING, WHILE TALKING OR EATING HE DROPPED DOWN TO 87-88%. COUGH IS DRY, DENIES PRODUCTION. STATES NUMBNESS AND TINGLING IN FEET, THAT STARTED ABOUT A YEAR AGO. HR SINUS TACH 100. DENIES CHEST PAIN. BARBOSA PATENT AND DRAINING CLEAR YELLOW.
--- NOTE | 2022-06-24 21:43 | NUR ---
COREY HAS BEEN ON THE BIPAP FOR AN HOUR TOLERATING IT WELL, HR HAS DECREASED TO THE 90'S, RESP ARE BACK TO NORMAL, SATS ARE HIGH 90'S. BIPAP SETTINGS 16/8 FIO2 55%. VT: AVERAGE 700-850.
--- NOTE | 2022-06-24 22:35 | NUR ---
SHORT BREAK OFF BIPAP, PLACED ON NC 6L SO HE COULD TAKE MEDS AND HAVE A SNACK. VERY TIRED. HATE HIS SNACK AND DRANK ALL OF HIS JUICE. LINEN CHANGED AND HE BOOSTED SELF UP IN BED. WHEN OFF BIPAP HIS HR IS 120'S. PLACED BACK ON BIPAP RATE RETURNS TO 90'S. BIPAP SHOWED HIGH TITAL VOLUMES IN THE 1200. REPOSITIONED AND ADJUSTED MASK, HAD HIM COUGH AND CLEAR AIRWAY. TITAL VOLUMES NOW INTHE 800-900'S.
--- NOTE | 2022-06-24 23:11 | NUR ---
COREY WOKE UP AND STATED "I CAN'T BREATH ON THIS" ASKING FOR THE BIPAP TO BE REMOVED. PLACED BACK ON 6L NC SATS 98%. CURRENTLY IN ROOM RESTING, AUDITABLE WHEEZING STILL NOTED.
--- NOTE | 2022-06-24 23:48 | NUR ---
COREY CALLED ASKING FOR A CIGARETTE BREAK. DISCUSSED HOSPITAL POLICY OF TOBACCO FREE CAMPUS. HE STATES HE SMOKES 2 PACKS A DAY AND USES NICOTINE GUM WITH IT. HE CURRENTLY HAS THE PATCH ON 21 MG.
--- NOTE | 2022-06-25 00:37 | NUR ---
COREY WAS AWAKE WITH SEVERE AUDIABLE WHEEZES. OFFERED TO PLACE BACK ON BIPAP. HE STATES HE CAN NOT BREATH ON IT. CALLED RT FOR BREATHING TX. NOW HE IS RESTING IN BED WITH SATS 94% ON 6L NC.
--- NOTE | 2022-06-25 00:54 | NUR ---
SNACK FINISHED, HE IS CONSTANTLY THIRSTY AND DRINKING ALOT OF FLUIDS. RESP INCREASED TO 30'S, HE FINISHED BREATHING TREATMENT BUT HE STILL HAS EXPIRTORY WHEEZES. PLACED ON BIPAP.
[2022-06-25 03:25] LABS: Hematocrit 34.7 % (37.0-53.0); Hemoglobin 11.3 g/dL (13.5-17.5); Mean Corpuscular HGB 29.4 pg (26.0-34.0); Mean Corpuscular HGB Conc 32.6 g/dL (31.5-36.5); Mean Corpuscular Volume 90 fL (80-100); Mean Platelet Volume 9.6 fL (9.1-12.4); Platelet Count 334 K/mm3 (150-400); RDW Coefficient Variation 14.3 % (11.7-14.2); RDW Standard Deviation 47.8 fL (35.1-46.3); Red Blood Cell Count 3.85 M/mm3 (4.30-5.90); White Blood Cell Count 6.44 K/mm3 (4.00-11.30)
[2022-06-25 03:54] LABS: BAND PERCENT MAN 1 % (0-8); BASOPHILS PERCENT MAN 0 % (0-2); EOSINOPHILS PERCENT MAN 0 % (0-6); LYMPHOCYTES % ATYPICAL MANUAL 3 % (0-0); LYMPHOCYTES ABSOLUTE MAN 0.96 K/mm3 (0.84-5.20); LYMPHOCYTES PERCENT MAN 12 % (21-46); MONOCYTES ABSOLUTE MAN 0.57 K/mm3 (0.16-1.47); MONOCYTES PERCENT MAN 9 % (4-13); NEUTROPHILS ABSOLUTE MAN 4.89 K/mm3 (1.96-9.15); SEG NEUTROPHILS PERCENT MAN 75 % (41-73); TOTAL CELLS COUNTED 100
[2022-06-25 04:43] LABS: Alanine Aminotransfer (ALT/SGP 346 U/L (12-78); Albumin, Blood 2.8 g/dL (3.4-5.0); Albumin/Globulin Ratio 0.8 (0.8-1.8); Alk Phos 76 U/L (50-136); Anion Gap 3 mmol/L (6-16); Aspartate Aminotrans (AST/SGOT 122 U/L (12-37); Bilirubin, Direct <0.1 mg/dL (0.0-0.3); Bilirubin, Indirect Unable to Calculate mg/dL (0.1-0.7); Bilirubin, Total 0.1 mg/dL (0.1-1.0); Blood Urea Nitrogen 13 mg/dL (8-24); Bun/Creatinine Ratio 26.2 (12.0-20.0); CO2, Blood 35 mmol/L (21-32); Calcium, Blood 8.6 mg/dL (8.5-10.1); Chloride, Blood 102 mmol/L (98-108); Globulin, Blood 3.5 g/dL (2.2-4.0); Glomerular Filtration Rate 131 (60-); Glucose, Blood 162 mg/dL (70-99); Phosphorus, Blood 1.8 mg/dL (2.5-4.9); Potassium, Blood 3.9 mmol/L (3.5-5.5); Sodium, Blood 140 mmol/L (136-145); Total Protein, Blood 6.3 g/dL (6.4-8.2)
--- NOTE | 2022-06-25 05:51 | NUR ---
SHIFT SUMMARY: COREY HAS HAD FEW PERIODS OF CONFUSION, HULLUCINATIONS AND PERIOD OF TALKING TO HIMSELF TONIGHT. CONTINUED TO THINK HIS FAMILY WAS HERE OR THAT OTHER PEOPLE WERE IN THE ROOM. RE-ORIENTED EASILY AND ALWAYS FOLLOWED DIRECTION. DID INCREASE PRECEDEX TO 0.7MG TO HELP HIM T/O THE NIGHT. LS CONT. WITH EXP. WHEEZES AND TIGHT. HE ATTEMPTED BIPAP SEVERAL TIMES ONLY LASTING AN HOUR AT A TIME. MAINTAINED ON 6L NC IN BETWEEN BIPAP USE. RESP AVERAGED 18-40'S AT TIMES. HR AVERAGE 90-120'S. DEPENDING ON BREATHING. BARBOSA REMAINED PATIENT.
--- NOTE | 2022-06-25 07:00 | NUR ---
FLORIN AT THE [facility] CALLED TO VERIFY DOSAGE. SHE STATE HE JUST STARTED WITH HIM ON THE . HIS FIRST DOSE OF 35MG WAS ON THE AT WHICH THEY STAY ON THE SAME DOSE FOR 3 DAYS THEN INCREASE BY 5MG FOR THE NEXT 3 DAYS. HE WOULD NEED 2 DAYS OF 35MG BEFORE INCREASING TO 40MG. WILL PASS ONTO DAY SHIFT.
--- NOTE | 2022-06-25 07:46 | NUR ---
CARE OF PT ASSUMED AT 0700. DURING REPORT PT GOT OOB WITHOUT ASSIST, CONFUSED, AND SOB. LABORED BREATHING. RT CALLED. CAMPAIGN MANAGER HELPED PT BACK TO BED. RT PLACED PT BACK ON BIPAP 26/11 45%. BREATHING TX GIVEN. PT WITH INSP/EXP WHEEZES T/O, TIGHT. PRECEDEX AT 0.7MCG, PT CONTINUALLY TAKES BIPAP OFF, ANXIOUS. ATIVAN GIVEN.
--- NOTE | 2022-06-25 09:46 | NUR ---
PT CONFUSED, REDIRECTABLE SHORT TERM, <1MIN. REPEATIVELY ATTEMPTS TO CLIMB OOB, REMOVED BP CUFF, ATTEMPTED TO PULL OUT IV. DR ADLER AT BEDSIDE; FULL UPDATE GIVEN. HOUR LONG A&A NEB ORDERED, MAG ORDERED, KETAMINE PUSH ORDERED AND GIVEN. PT 1:1 AT THIS TIME
--- NOTE | 2022-06-25 09:48 | NUR ---
KETAMINE 1ML/10MG WASTED WITH ANDRÉS SHARIF RN
--- NOTE | 2022-06-25 10:01 | NUR ---
DR ADLER AT BEDSIDE TO CHECK ON PT, SETTINGS CHANGED TO 03/20. RATE 14, FIO2 35%. PT RESP RATE AROUND 20.
--- NOTE | 2022-06-25 13:20 | NUR ---
PT REMOVED BIPAP, REFUSES TO PUT IT BACK ON. DR ADLER NOTIFIED AND AT BEDSIDE SHORTLY AFTER. PT DENIES FEELING SOB, ALTHOUGH RESP EFFORT IS LABORED, WITH LOUD AUDIBLE EXP/INSP WHEEZES HEARD AT BEDSIDE. PRECEDEX INCREASED TO 1MCG, KETAMINE PUSH ORDERED. WILL ATTEMPT TO REPLACE BIPAP WHEN PT LESS ANXIOUS.
--- NOTE | 2022-06-25 14:45 | NUR ---
PT'S MOTHER AT BEDSIDE AND GIVEN UPDATE BY DR ADLER. PT ABLE TO WEAR BIPAP AFTER 2ND DOSE OF KETAMINE. PT DOES CONT TO WAKE UP ANXIOUS. PRECEDEX INCREASED TO 1MCG PER DR ADLER. METHADONE RESTARTED PER DR ADLER.
--- NOTE | 2022-06-25 16:31 | NUR ---
PT REMOVED BIPAP AND IS DECLINING TO PUT BACK ON AT THIS TIME. PT ANXIOUS AND RESTLESS W LOUD INSP/EXP WHEEZES HEARD AT BEDSIDE. DR ADLER IN TO CHECK ON PT. PRECEDEX AT 1.4MCG. ATIVAN 2MG GIVEN. KETAMINE ORDERED PRN.
--- NOTE | 2022-06-25 19:37 | NUR ---
ASSUMED CARE. PT WOKE UP CONFUSED PULLED OFF HIS NC. SEVERE AUDIABLE WHEEZES INSP. AND EXP. TIGHT IN THE BASES MORE SO ON THE LEFT THAN RIGHT. ABDOMINAL MUSCLE USE. RESP RATE JUMPED INTO THE HIGH 20'S. PLACED ON BIPAP WITH SETTINGS 12/8 30%. RESP RATE ON BIPAP IMPROVED NOT LABORED. RT WAS CALLED. BREATHING TX GIVEN. LS STILL HAVE INSP AND EXP WHEEZES AFTERWARDS NOT SEVERE. PRECEDEX 1.4MCQ.
--- NOTE | 2022-06-25 20:56 | NUR ---
COREY HAS TRIED TO GET UP SEVERAL TIMES SO FAR, ATTEMPTING TO GET MASK OFF. EASILY REDIRECTABLE. WHILE AWAKE GAVE PO MEDS WITH RT AT BEDSIDE, HE SWALLOWED WITH OUT ANY PROBLEM. GAVE 2MG OF ATIVAN AND PLACED BACK ON BIPAP. MOTHER ANA CRISTINA CALLED AROUND 1999 FOR UPDATE. SHE INFORMED ME THAT HE HAS BEEN INTUBATED NUMEROUS TIMES AND TYPICALLY IS ON THE VENT FOR A DAY OR TWO THEN COMES OFF. ALSO CALLED DR. ADLER REGARDING CONSISTENT HYPERTENTION IN THE 170/110'S. NEW ORDERS WERE OBTAINED. PATIENT REPOSITIONED ON SIDE WIHT BIPAP ON.
--- NOTE | 2022-06-25 21:17 | NUR ---
VASOTEC GIVEN BP NOW 152/93 AND HOLDING. HR 60'S. SATS 95% ON BIPAP.
--- NOTE | 2022-06-26 01:16 | NUR ---
COREY HAS BEEN TOLERATING THE BIPAP WELL WITH USE OF ATIVAN AND PRECEDEX. STILL WAKES UP WITH VERBAL STIMULI AND WILL FOLLOW DIRECTIONS. WHEN AWAKE HE ASKED TO IF HE CAN LEAVE, REMINDED HIM THE SITUATION AND THAT HE NEEDS TO GET BETTER. HE DOES WELL TO UNDERSTAND.
--- NOTE | 2022-06-26 01:37 | NUR ---
COREY JUST WOKE UP RIPPING OFF HIS BIPAP, STATES HE CAN'T TAKE IT ANYMORE. WATER GIVEN. NO CHANGE IN LUNG SOUNDS. RT AT BEDSIDE NEEDING TO GIVE BREATHING TREATMENT. GAVE ATIVAN TO HELP HIM TOLERATE HIM. BIPAP BACK ON.
[2022-06-26 04:04] LABS: BASOPHILS ABSOLUTE AUTO 0.01 K/mm3 (0.00-0.23); BASOPHILS PERCENT AUTO 0 % (0-2); EOSINOPHILS PERCENT AUTO 0 % (0-6); Hematocrit 36.7 % (37.0-53.0); IMMATURE GRAN ABSOLUTE AUTO 0.02 K/mm3 (0.00-0.10); IMMATURE GRAN PERCENT AUTO 0 % (0-1); LYMPHOCYTES ABSOLUTE AUTO 0.57 K/mm3 (0.84-5.20); LYMPHOCYTES PERCENT AUTO 10 % (21-46); MONOCYTES ABSOLUTE AUTO 0.33 K/mm3 (0.16-1.47); MONOCYTES PERCENT AUTO 6 % (4-13); Mean Corpuscular HGB 29.6 pg (26.0-34.0); Mean Corpuscular HGB Conc 32.7 g/dL (31.5-36.5); Mean Corpuscular Volume 90 fL (80-100); Mean Platelet Volume 9.3 fL (9.1-12.4); NEUTROPHILS PERCENT AUTO 85 % (41-73); Platelet Count 367 K/mm3 (150-400); RDW Coefficient Variation 14.6 % (11.7-14.2); RDW Standard Deviation 48.9 fL (35.1-46.3); Red Blood Cell Count 4.06 M/mm3 (4.30-5.90); White Blood Cell Count 6.03 K/mm3 (4.00-11.30)
[2022-06-26 04:23] LABS: Anion Gap 0 mmol/L (6-16); Blood Urea Nitrogen 16 mg/dL (8-24); Bun/Creatinine Ratio 26.6 (12.0-20.0); CO2, Blood 37 mmol/L (21-32); Calcium, Blood 8.7 mg/dL (8.5-10.1); Chloride, Blood 101 mmol/L (98-108); Glomerular Filtration Rate 124 (60-); Glucose, Blood 158 mg/dL (70-99); Phosphorus, Blood 3.7 mg/dL (2.5-4.9); Potassium, Blood 4.6 mmol/L (3.5-5.5); Sodium, Blood 138 mmol/L (136-145)
--- NOTE | 2022-06-26 04:38 | NUR ---
COREY WOKE UP PULLING OFF HIS BIPAP MASK, PLACED IT BACK ON AND TALKED HIM INTO KEEPING IT ON. HE FELL BACK TO SLEEP AND 10 MINUTES LATER, HE HAD IT BACK OFF, TOOK OFF THE NC THAT WAS PUT ON HIM, PULLED OUT HIS IV, HEART MONITOR LEADS WERE OFF, HE WAS IN THE MIDDLE OF TAKING OUT HIS OTHER IV SAYING HE HAD TO LEAVE. GAVE ANOTHER 2MG OF ATIVAN. BLOOD PRESSURES CONTINUE TO BE 150'S/110'S. WHEEZEING HAS IMPROVED, NOT SEVERE OR AUDIABLE.
--- NOTE | 2022-06-26 05:10 | NUR ---
COREY REMOVED BIPAP AGAIN, CAUGHT HIM PULLING ON DRESSING OF PG LINE. PLACED ON O2 AT 4L. END TIDAL AT 21-23.
--- NOTE | 2022-06-26 05:31 | NUR ---
SHIFT SUMMARY: COREY HAS REMAINED UNDER MILD SEDATION W/ PRECEDEX AT 1.4MCQ AND ATIVAN. NO KETAMINE WAS USED DUE TO HYPERTENSION OF SBP >150'S AND DBP >90. HE HAS REMAINED ON BIPAP 95% OF THE NIGHT. THERE WERE SEVERAL PERIODS OF AWAKING AND PULLING THINGS OFF BUT WAS EASILY REDIRECTED. BIPAP BREAKS WERE GIVEN FOR ONLY FEW MINUTES AT A TIME FOR WATER INTAKE AND ORAL CARE. BIPAP SETTINGS REMAIN 12/8/30%. WHEN OFF BIPAP 4-6L O2. VERY CONFUSED WHEN AWAKE. LS HAVE IMPROVED THEY ARE TIGHT. THE WHEEZING HAS DECREASED IN SEVERITY EVEN THOUGH STILL PRESENT. DECREASE IN ASSESSORY MUSCLES, AND RESP RATE. SATS HAVE REMAINED >90% WAS HYPERTENSIVE IN THE 170'S/110'S, 1 DOSE OF 2.5MG OF VASOTEC WAS GIVEN, LABATOLOL PRN ORDERED BUT NEVER GIVEN. HR DECREASED TO 60'S. RIGHT JVD STILL PRESENT. RIGHT HAND IV WAS PULLED OUT. BARBOSA REMAINS PATENT, 800 OUTPUT. NO BM. MOTHER CALLED AND UPDATED, SHE PLANS TO STAY HOME TODAY SHE FELT IT AGGITATED HIM MORE WHEN SHE WAS HERE.
--- NOTE | 2022-06-26 08:00 | NUR ---
PT AWAKENS TO VOICE AND IS ORIENTED TO SELF. PT COOPERATIVE WITH CARE.PRECEDEX @ 1.4 MCG/KG/MIN. PT ALLOWED FOR ORAL CARE AND TOOK HIS MEDS WITH SIPS OF WATER WITHOUT DIFFICULTY. ECG SHOWS SB TO SR WITH RATE 50-60'S. JVD NOTED. LUNGS WITH COARSE RHONCHI TO RIGHT UPPER LOBE AND TIGHT THROUGH OUT. MODERATE AMOUNT OF THICK, WHITE SECRETIONS SUCTIONED WITH ORAL CARE. SATS>90% ON 6 LITERS NASAL CANULA FOR APROXIMATELY 5 MINUTES-THEN BIPAP REPLACED 12/8 FIO2 30%. PT NPO EXCEPT FOR SIPS OF WATER WITH MEDS. BARBOSA TO BSD WITH ADEQUATE AMOUNT OF CLEAR, YELLOW URINE OUTPUT. PT IS HAS A SITTER FOR SAFETY. PT GIVEN 1 MG OF ATIVAN IVP IN ADDITION TO HIS SCHEDULED ATIVEN-SEE EMAR.
--- NOTE | 2022-06-26 09:52 | NUR ---
DR. ADLER IN TO SEE PT AND FULL UPDATE GIVEN.
--- NOTE | 2022-06-26 12:30 | NUR ---
PT OFF OF BIPAP X 30 MINUTES. DURING THIS TIME, PT PLACED ON 6 LITERS NASAL CANULA. PT MAINTAINED SATS>90%, BUT AUDIBLY WHEEZY. PT GIVEN BED BATH, SHAMPOO, AND LINEN CHANGE COMPLETED. PT COOPERATIVE WITH CARE. PT GIVEN ENSURE SHAKE AND HE DRANK APROXIMATELY 75% LUNGS REMAIN TIGHT WITH SCATTERED WHEEZES THROUGH OUT AND COARSE RHONCHI TO LEFT UPPER LOBE. BIPAP REPLACED AFTER 30 MINUTES-12/8 FIO2 30% AND SATS>90%
--- NOTE | 2022-06-26 14:15 | NUR ---
PT REQUESTED BREAK FROM BIPAP AND TO GET OOB. PT GIVEN 5 MINUTE BREAK FROM BIPAP TO TAKE MEDS AND HAVE A DRINK OF WATER. PT APPEARS ANXIOUS-AUDIBLY WHEEZY. MED WITH ATIVAN 2 MG IVP X 1 AND POSITIONED TO COMFORT ON RIGHT SIDE. BIPAP REPLACED AFTER MEDS GIVEN-SATS>90% ON FIO2 30%
--- NOTE | 2022-06-26 16:00 | NUR ---
PT AWAKENED, REMOVED BIPAP MASK, AND DEMANDING TO GET OOB. PT APPEARS ANXIOUS ON PRECEDEX @ 1.4 MCG/KG/MIN. PT GIVEN A 10 MINUTE BREAK FROM BIPAP-MAINTAINED SATS >90% ON 6 LITERS NASAL CANULA. DURING BIPAP BREAK, ORAL CARE DONE AND PT GIVEN SIPS OF WATER-TOLERATED WELL. PT AUDIBLY WHEEZY AND DYSPNEA NOTED-BIPAP REPLACED. PT MED WITH ATIVAN 1 MG IVP-SCHEDULED DOSE-SEE EMAR.
--- NOTE | 2022-06-26 18:08 | NUR ---
PT GIVEN 20 MINUTE BREAK FROM BIPAP. PT DRANK 100% OF ENSURE SHAKE WITH ASSISTANCE. AFTER 20 MINUTES, PT BECAME ANXIOUS AND AUDIBLY WHEEZY. MED WITH ATIVAN 2 MG IVP X 1 AND REPLACED BIPAP. PT SEDATION LEVEL EASIER TO PREDICT ON PRECEDEX @ 1.4 MCG/KG/MIN, SCHEDULED ATIVAN, AND PRN ATIVAN. 1:1 SITTER NOT NEEDED A THIS TIME.
--- NOTE | 2022-06-26 19:42 | NUR ---
ASSUMED CARE OF PT AT 1900. REPORT RECEIVED AT BEDSIDE. PT PRESENTS IN BED. WEARING BIPAP MASK. VOICES NO COMPLAINTS AT THIS TIME. WILL REVIEW CHART AND PLAN OF CARE FOR THIS PT.
--- NOTE | 2022-06-27 | NUR ---
PT MAINTAINS ON BIPAP. HAS NOT MADE ATTEMPTS TO REMOVE MASK. WHEN AWAKE IS VERY DIFFICULT TO UNDERSTAND HIS VOICE. BIPAP 12/8 WITH FIO2 30 PERCENT. CONTINUES WITH AUDIBLE WHEEZING
[2022-06-27 04:45] LABS: BASOPHILS ABSOLUTE AUTO 0.01 K/mm3 (0.00-0.23); BASOPHILS PERCENT AUTO 0 % (0-2); EOSINOPHILS PERCENT AUTO 0 % (0-6); Hematocrit 40.3 % (37.0-53.0); Hemoglobin 13.2 g/dL (13.5-17.5); IMMATURE GRAN ABSOLUTE AUTO 0.08 K/mm3 (0.00-0.10); IMMATURE GRAN PERCENT AUTO 1 % (0-1); LYMPHOCYTES ABSOLUTE AUTO 0.61 K/mm3 (0.84-5.20); LYMPHOCYTES PERCENT AUTO 7 % (21-46); MONOCYTES PERCENT AUTO 5 % (4-13); Mean Corpuscular HGB 29.5 pg (26.0-34.0); Mean Corpuscular HGB Conc 32.8 g/dL (31.5-36.5); Mean Corpuscular Volume 90 fL (80-100); Mean Platelet Volume 9.3 fL (9.1-12.4); NEUTROPHILS ABSOLUTE AUTO 7.65 K/mm3 (1.96-9.15); NEUTROPHILS PERCENT AUTO 87 % (41-73); Platelet Count 443 K/mm3 (150-400); RDW Coefficient Variation 14.4 % (11.7-14.2); RDW Standard Deviation 47.5 fL (35.1-46.3); Red Blood Cell Count 4.48 M/mm3 (4.30-5.90); White Blood Cell Count 8.75 K/mm3 (4.00-11.30)
[2022-06-27 05:31] LABS: Alanine Aminotransfer (ALT/SGP 376 U/L (12-78); Albumin, Blood 2.9 g/dL (3.4-5.0); Albumin/Globulin Ratio 0.9 (0.8-1.8); Alk Phos 77 U/L (50-136); Anion Gap 3 mmol/L (6-16); Aspartate Aminotrans (AST/SGOT 72 U/L (12-37); Bilirubin, Direct <0.1 mg/dL (0.0-0.3); Bilirubin, Indirect Unable to Calculate mg/dL (0.1-0.7); Bilirubin, Total 0.3 mg/dL (0.1-1.0); Blood Urea Nitrogen 18 mg/dL (8-24); Bun/Creatinine Ratio 30.8 (12.0-20.0); CO2, Blood 32 mmol/L (21-32); Calcium, Blood 8.8 mg/dL (8.5-10.1); Chloride, Blood 102 mmol/L (98-108); Creatinine, Blood 0.59 mg/dL (0.60-1.20); Globulin, Blood 3.3 g/dL (2.2-4.0); Glomerular Filtration Rate 125 (60-); Glucose, Blood 138 mg/dL (70-99); Phosphorus, Blood 3.1 mg/dL (2.5-4.9); Potassium, Blood 4.6 mmol/L (3.5-5.5); Sodium, Blood 137 mmol/L (136-145); Total Protein, Blood 6.2 g/dL (6.4-8.2)
--- NOTE | 2022-06-27 06:28 | NUR ---
DECREASED PRECEDEX TO 1.2 MCG'S/KG/HOUR. HAVE NOT REQUIRED PRN ATIVAN THIS NIGHT. PT HAS NON PRODUCTIVE COUGH. HE STATES HE IS NOT ABLE TO EXPECTORATE ANY SECRETIONS. HAS MOVED IN BED ON HIS OWN. HAVE ASSISTED WITH TURNS ON OCCASSION. O2 PER NASAL CANNULA AT 4 L/M. WILL CONTINUE TO MONITOR PT, AND WILL REPORT OFF TO ONCOMING RN.
--- NOTE | 2022-06-27 08:18 | NUR ---
AM NOTE... ASSUMED CARE OF PT AT 0700, PT IS A&Ox4, SPEECH IS SLOW BUT RESPONSES ARE APPROPRIATE. HE IS ON 6L NC WITH O2 SATS >90% L/S ARE TIGHT T/O WHEEZES TO THE UPPER LOBED CRACKLES NOTED IN THE BILATERAL BASES, [id number]. HE IS IN SB IN THE 50'S WHILE SLEEPING ON 1.2 OF PRECEDEX AND 80'S-90'S WHILE AWAKE. NO EDEMA IS NOTED ON THIS ASSESSMENT. BT PRESENT AND HYPOACTIVE, ABD IS SOFT TO PALPATION. PT IS SITTING UP IN BED FEEDING HIMSELF BREAKFAST. BARBOSA IS PATENT AND DRAINING TO GRAVITY. WILL CONTINUE TO MONITOR.
--- NOTE | 2022-06-27 17:10 | NUR ---
SHIFT SUMMARY.... NO ACUTE NEGATIV CHANGES NOTED THIS SHIFT. THE PT STARTED THE SHIFT ON 6L NC AND HAS BEEN TITRATED DOWN TO 2L NC WITH O2 SATS>90% L/S CONTINUE TO BE DIM T/O WITH SCATTERED WHEEZES AND FINE CRACKELS IN THE BASES. PRECEDEX GTT HAS BEEN OFF SINCE 1000 PT HAS BEEN GETTING PRN ATIVAN 1MG IV APROX Q2 HRS. PT WAS UP IN THE CHAIR FOR APROX 3 HOURS THIS SHIFT AND DID WELL WITH 1P SBA. THE PT'S BARBOSA WAS D/C'd THIS SHIFT, PT HAS BEEN VOIDING APROX EVERY 30MINS BUT ONLY 50MLS AT A TIME SINCE THE BARBOSA WAS D/C'd. A BLADDER SCAN WAS DONE THAT SHOWED 151MLS, A CONDOM CATH WAS PLACED AFTER PT EDUCATION AND AGREEMENT. CALL LIGHT IN REACH, BED ALARM IS ON WILL CONTINUE TO MONITOR UNTIL REPORT IS GIVEN TO ON COMING RN.
--- NOTE | 2022-06-27 19:24 | NUR ---
ASSUMED CARE OF PT AT 1900. REPORT RECEIVED. PT PRESENTS IN BED. DROWSY. MENTATION SOMEWHAT IMPROVED FROM PREVIOUS DAY. DR МАРИНА ALMENDAREZ'S PT TO USE CANNULA THROUGHOUT THE NIGHT, UNLESS IT BECOMES NECESSARY. WILL REVIEW CHART AND PLAN OF CARE FOR THIS PT.
--- NOTE | 2022-06-27 21:01 | NUR ---
PT BECOMES VERY FOCUSSED ON CONDOM CATHETER AND WOULD NOT CEASE MANIPULATING CATHETER. DOES EVENTUALLY PULL CONDOM CATHETER OFF. PROVIDED SEVERAL URINALS FOR PT TO VOID. WILL NOT PLACE NEW CONDOM CATHETER SECONDARY TO REPEATED REMOVAL BY PT.
--- NOTE | 2022-06-28 03:01 | NUR ---
PT HAS FREQUENTLY ASKED FOR ICE CREAM, PUDDING, POPCICLES, AND JUICE. PT DOES ADMIT HE IS EATING BECAUSE OF BEING BORED. HAS AGREED TO TAKE A BREAK FROM EATING AND TRY AND GET SOME REST. HAS VOIDED QUITE AN AMOUNT THIS NIGHT. HAVE NOT NEEDED TO USE CONDOM CATHETER. WILL CONTINUE TO MONITOR PT
[2022-06-28 03:57] LABS: BASOPHILS ABSOLUTE AUTO 0.02 K/mm3 (0.00-0.23); BASOPHILS PERCENT AUTO 0 % (0-2); EOSINOPHILS PERCENT AUTO 0 % (0-6); Hematocrit 42.4 % (37.0-53.0); Hemoglobin 13.9 g/dL (13.5-17.5); IMMATURE GRAN ABSOLUTE AUTO 0.13 K/mm3 (0.00-0.10); IMMATURE GRAN PERCENT AUTO 1 % (0-1); LYMPHOCYTES ABSOLUTE AUTO 0.59 K/mm3 (0.84-5.20); LYMPHOCYTES PERCENT AUTO 6 % (21-46); MONOCYTES ABSOLUTE AUTO 0.44 K/mm3 (0.16-1.47); MONOCYTES PERCENT AUTO 5 % (4-13); Mean Corpuscular HGB 29.4 pg (26.0-34.0); Mean Corpuscular HGB Conc 32.8 g/dL (31.5-36.5); Mean Corpuscular Volume 90 fL (80-100); Mean Platelet Volume 9.2 fL (9.1-12.4); NEUTROPHILS ABSOLUTE AUTO 8.49 K/mm3 (1.96-9.15); NEUTROPHILS PERCENT AUTO 88 % (41-73); Platelet Count 513 K/mm3 (150-400); RDW Coefficient Variation 14.5 % (11.7-14.2); RDW Standard Deviation 47.6 fL (35.1-46.3); Red Blood Cell Count 4.73 M/mm3 (4.30-5.90); White Blood Cell Count 9.67 K/mm3 (4.00-11.30)
[2022-06-28 04:17] LABS: Bun/Creatinine Ratio 29.1 (12.0-20.0); Calcium, Blood 9.1 mg/dL (8.5-10.1); Creatinine, Blood 0.65 mg/dL (0.60-1.20); Magnesium, Blood 2.2 mg/dL (1.6-2.4); Potassium, Blood 4.5 mmol/L (3.5-5.5)
--- NOTE | 2022-06-28 06:43 | NUR ---
PT HAS NOT BEEN ABLE TO REST MUCH THIS NIGHT. HAS HAD PRN RESTORIL WITHOUT MUCH SUCCESS PT FREQUENTLY USING CALL LIGHT SYSTEM FOR MULTIPLE DIFFERENT REASONS. HAS SAT UP IN RECLINER CHAIR FOR A SHORT PERIOD DURING THE NIGHT. PT MAINTAINS ON 2 L/M OXYGEN PER NASAL CANNULA. > 90 PERCENT SATURATED. WILL CONTINUE TO MONITOR PT, AND WILL REPORT OFF TO ONCOMING RN.
--- NOTE | 2022-06-28 07:15 | NUR ---
ASSUMPTION OF CARE PT A&OX4, PARTICIPATES IN CONVERSATION AND USES CALL LIGHT APPROPRIATELY. HE REPOSITIONS HIMSELF IN BED FOR BREAKFAST. HE IS ON 2L NC WITH SPO2 >94%. HE HAS AN OCCASIONAL PRODUCTIVE COUGH. PT USES URINAL TO VOID. VSS AT THIS TIME. BED IN LOW POSITION AND CALL LIGHT WITHIN REACH.
--- NOTE | 2022-06-28 14:30 | NUR ---
TRANSFER TO MEDICAL FLOOR PT TRANSPORTED TO 338 VIA WHEELCHAIR BY BRAD. HE IS ON 2L NC. BELONGINGS WITH PT. MOTHER ANA CRISTINA UPDATED ON TRANSFER PER PT REQUEST.
--- NOTE | 2022-06-28 15:53 | NUR ---
UPDATE PT HAS BEEN A&OX 3-4 WITH PLEASANT AFFECT. HE IS DROWSY AT TIMES BUT ANSWERSR QUESTIONS APPROPRIATELY. HE WORKED WITH PT TODAY, AMBULATED WELL AROUND UNIT. HE IS ON 2L NC. LUNGS ARE COARSE, CRACKLES IN BASES. HE CONTINUES TO HAVE A PRODUCTIVE COUGH. PT REPORTS FEELING "BETTER" OVERALL. HE HAS BEEN IN SINUS RHTYHM WITH RATE 80S-90S WHILE RESTING, 100S-120S WITH ACTIVITY. BP STABLE, SBP 110S-140S. PT USES URINAL INDEPENDENTLY AND HAS VOIDED SEVERAL TIMES THIS SHIFT. BED IN LOW POSITION AND CALL LIGHT WITHIN REACH.
--- NOTE | 2022-06-28 18:36 | NUR ---
SHIFT SUMMARY 1620 RECEIVED PT TO RM 338 FROM ICU 15. PT IS A&O, PLEASANT AND CO-OP. ABLE TO AMBULATE TO [facility]TH[facility] ON HIS OWN. PT REQUESTED O2 EXTENSION; GIVEN. PT ON 2L VIA N/C. ADMITTED FOR RESP FAILURE AND COPD EXAC. RESTING QUIETLY WATCHING TV. CALL LT IN REACH.
--- NOTE | 2022-06-29 07:18 | NUR ---
NAOMI IS A&OX3-4, QUIET AND COOPERATIVE WITH CARE. HE REMAINS INDEPENDENT IN ROOM. ALARM SET OVERNIGHT DUE TO THE VOLUME OF MEDS HE NEEDS THAT COULD POTENTIALLY INCREASE HIS FALL RISK. LUNG SOUNDS ARE DIM WITH CRACKLES HEARD IN THE UPPER AIRWAYS AND BASES. MODERATE NON PRODUCTIVE COUGH NOTED.
[2022-06-29 09:13] LABS: BASOPHILS ABSOLUTE AUTO 0.06 K/mm3 (0.00-0.23); BASOPHILS PERCENT AUTO 1 % (0-2); EOSINOPHILS ABSOLUTE AUTO 0.06 K/mm3 (0.00-0.68); EOSINOPHILS PERCENT AUTO 1 % (0-6); Hematocrit 47.4 % (37.0-53.0); Hemoglobin 15.6 g/dL (13.5-17.5); IMMATURE GRAN PERCENT AUTO 2 % (0-1); LYMPHOCYTES ABSOLUTE AUTO 1.01 K/mm3 (0.84-5.20); LYMPHOCYTES PERCENT AUTO 8 % (21-46); MONOCYTES ABSOLUTE AUTO 0.64 K/mm3 (0.16-1.47); MONOCYTES PERCENT AUTO 5 % (4-13); Mean Corpuscular HGB 29.7 pg (26.0-34.0); Mean Corpuscular HGB Conc 32.9 g/dL (31.5-36.5); Mean Corpuscular Volume 90 fL (80-100); NEUTROPHILS ABSOLUTE AUTO 11.19 K/mm3 (1.96-9.15); NEUTROPHILS PERCENT AUTO 85 % (41-73); Platelet Count 663 K/mm3 (150-400); RDW Coefficient Variation 14.4 % (11.7-14.2); RDW Standard Deviation 47.6 fL (35.1-46.3); Red Blood Cell Count 5.26 M/mm3 (4.30-5.90); White Blood Cell Count 13.16 K/mm3 (4.00-11.30)
[2022-06-29 09:24] LABS: Alanine Aminotransfer (ALT/SGP 195 U/L (12-78); Albumin, Blood 3.4 g/dL (3.4-5.0); Alk Phos 74 U/L (50-136); Anion Gap 2 mmol/L (6-16); Aspartate Aminotrans (AST/SGOT 19 U/L (12-37); Bilirubin, Direct <0.1 mg/dL (0.0-0.3); Bilirubin, Indirect Unable to Calculate mg/dL (0.1-0.7); Bilirubin, Total 0.2 mg/dL (0.1-1.0); Blood Urea Nitrogen 28 mg/dL (8-24); Bun/Creatinine Ratio 41.9 (12.0-20.0); CO2, Blood 34 mmol/L (21-32); Calcium, Blood 8.9 mg/dL (8.5-10.1); Chloride, Blood 97 mmol/L (98-108); Creatinine, Blood 0.67 mg/dL (0.60-1.20); Globulin, Blood 3.5 g/dL (2.2-4.0); Glomerular Filtration Rate 120 (60-); Glucose, Blood 152 mg/dL (70-99); Phosphorus, Blood 3.7 mg/dL (2.5-4.9); Potassium, Blood 4.5 mmol/L (3.5-5.5); Sodium, Blood 133 mmol/L (136-145); Total Protein, Blood 6.9 g/dL (6.4-8.2)
--- NOTE | 2022-06-29 17:25 | NUR ---
SHIFT SUMMARY PT RESTING QUIETLY AT START OF SHIFT. UP INDEPENDENTLY IN AND TO BTHRM. DR PRYOR IN TO SEE PT AND DISCUSS PLAN OF CARE. PT ENCOURAGE TO STOP SMOKING. PRESCRIPTION FOR NICOTINE PATCHES OR GUM TO BE GIVEN AT D/C. HOME O2 EVAL ORDERED AND COMPLETED; PT NOW NOT NEEDING O2. DR COONEY IN TO SEE PT LATER; NEW ORDERS PLACED. PT TO D/C HOME WITH BAMBI, ORDERED TODAY. RT TO INSTRUCT PT ON USE TODAY. PT TO D/C TO HOME TOMORROW. PT'S MOM AND FAMILY IN THIS AM AND WILL RETURN TOMORROW. PT CONTINUES TO IMPROVE SLOWLY. MEDICALLY STABLE AT THIS TIME. CALL LT IN REACH. ABLE TO MAKE NEEDS KNOWN.
[2022-06-30 05:29] LABS: BASOPHILS ABSOLUTE AUTO 0.03 K/mm3 (0.00-0.23); BASOPHILS PERCENT AUTO 0 % (0-2); EOSINOPHILS ABSOLUTE AUTO 0.04 K/mm3 (0.00-0.68); EOSINOPHILS PERCENT AUTO 0 % (0-6); Hematocrit 42.3 % (37.0-53.0); IMMATURE GRAN ABSOLUTE AUTO 0.14 K/mm3 (0.00-0.10); IMMATURE GRAN PERCENT AUTO 1 % (0-1); LYMPHOCYTES ABSOLUTE AUTO 1.13 K/mm3 (0.84-5.20); LYMPHOCYTES PERCENT AUTO 10 % (21-46); MONOCYTES ABSOLUTE AUTO 0.97 K/mm3 (0.16-1.47); MONOCYTES PERCENT AUTO 9 % (4-13); Mean Corpuscular HGB 29.7 pg (26.0-34.0); Mean Corpuscular HGB Conc 33.1 g/dL (31.5-36.5); Mean Corpuscular Volume 90 fL (80-100); NEUTROPHILS ABSOLUTE AUTO 9.03 K/mm3 (1.96-9.15); NEUTROPHILS PERCENT AUTO 80 % (41-73); Platelet Count 535 K/mm3 (150-400); RDW Coefficient Variation 14.1 % (11.7-14.2); RDW Standard Deviation 46.5 fL (35.1-46.3); Red Blood Cell Count 4.71 M/mm3 (4.30-5.90); White Blood Cell Count 11.34 K/mm3 (4.00-11.30)
--- NOTE | 2022-06-30 06:38 | NUR ---
Shift Summary Pt stated heavy anxiety for the first half of shift. He felt better after recieving shceduled Ativan and then PRN Trazadone later for insomnia. PT to D/C home today with Marilou nelson, KARAN to instruct on use before DC. Rcvd 2 calls from Tele about mild ST elevation, similar to events 24 hours ago. Pt stated no CP or pressure both times. AOx4, independent in room, pleasant and cooperative.
[2022-06-30] MEDS ORDERED: METH40 PO (15:23)
[2022-06-30] MEDS ORDERED: DULERA 100 MCG/13 GM INH (15:23)
[2022-06-30] MEDS ORDERED: AMOCLA875 PO (15:23)
[2022-06-30] MEDS ORDERED: NICO21TP TOP (15:23)
[2022-06-30] MEDS ORDERED: PRED20 PO (15:24)
--- NOTE | 2022-06-30 15:51 | NUR ---
DISCHARGE PATIENT AMBULATED WITH STAFF TO PRIVATE VEHICLE PER HIS REQUEST. DISCHARGE INSTRUCTIONS EXPLAINED TO PATIENT AND FAMILY AT BEDSIDE. BOTH STATED UNDERSTANDING. PACKET SENT WITH PATIENT. POWERGLIDE TO [facility] REMOVED WITHOUT DIFFICULTY. TELE REMOVED WITHOUT DIFFICULTY. PATIENT GIVEN PACKET FOR PCP. PATIENT GIVEN EDUCATION ON ESTABLISHING WITH PCP. PATIENT AND FAMILY STATED THEY WOULD DO SO. MEDICATIONS FAXED TO PREFERRED [facility]. CARE MANAGEMENT ORDERED HOME HEALTH AND NEBULIZER.
== END 2022-06-30 16:04 | disposition home or self-care (01) | DRG 189 ==
LOC: ER 11:10 → ICUE 12:40 → MEDS 12:40 → ICUW 12:40 → ICUE 14:40 → ICUW 06-27 17:07 → MEDS 06-28 16:13
PROVIDERS: Emergency Medicine; Family Medicine; Internal Medicine Critical Care Medicine; Nurse Practitioner Acute Care; Student in an Organized Health Care Education/Training Program; ADMIT Internal Medicine
PROC: 5A09357 Assistance with Respiratory Ventilation, Less than 24 Consecutive Hours, Continuous Positive Airway Pressure (ICD-10-PCS; principal; 2022-06-23)
DX: J96.01 Acute respiratory failure with hypoxia (principal); G92.8 Other toxic encephalopathy; I21.A1 Myocardial infarction type 2; J44.1 Chronic obstructive pulmonary disease with (acute) exacerbation; I50.22 Chronic systolic (congestive) heart failure; F11.20 Opioid dependence, uncomplicated; R65.10 Systemic inflammatory response syndrome (SIRS) of non-infectious origin without acute organ dysfunction; J45.902 Unspecified asthma with status asthmaticus; E87.1 Hypo-osmolality and hyponatremia; F31.9 Bipolar disorder, unspecified; Z20.822 Contact with and (suspected) exposure to COVID-19; B95.61 Methicillin susceptible Staphylococcus aureus infection as the cause of diseases classified elsewhere; F17.210 Nicotine dependence, cigarettes, uncomplicated; K21.9 Gastro-esophageal reflux disease without esophagitis; J96.02 Acute respiratory failure with hypercapnia; R74.01 Elevation of levels of liver transaminase levels; F19.10 Other psychoactive substance abuse, uncomplicated; E83.39 Other disorders of phosphorus metabolism; D64.9 Anemia, unspecified; R73.9 Hyperglycemia, unspecified; T38.0X5A Adverse effect of glucocorticoids and synthetic analogues, initial encounter; D75.838 Other thrombocytosis; F15.10 Other stimulant abuse, uncomplicated; M54.9 Dorsalgia, unspecified; G89.29 Other chronic pain; F41.9 Anxiety disorder, unspecified; Z98.890 Other specified postprocedural states; Z88.8 Allergy status to other drugs, medicaments and biological substances
CPT/HCPCS: 0202U; 36415; 51702; 71045; 71046; 80048; 80053; 80069; 80178; 81001; 82248; 82803; 83735; 83880; 84100; 84145; 84484; 85025; 85379; 87070; 87077; 87186; 87205; 93005; 93010; 93306; 94640; 94644; 94645; 94660; 94664; 94760; 94761; 94762; 96374-59; 96375-59; 97116; 97162; 99291-25; A9270; C1751; C9113; J0456; J0696; J1650; J2060; J2405; J2765; J2930; J3370; J3475; J7030; J7040; J7050

== ENCOUNTER → 2022-06-23 | Outpatient (CLI) | payer MEDICARE, OTHER ==
[~2022-06-23] MED LIST changes: +ABILIFY MYCITE PO; +ABILIFY MYCITE15 M2; +MIRT15 PO; +QUETIAPINE FUMA50 M6 PO; +Vistaril50 MG PO; +[UNRECOGNIZED DRUG - CODE] PO
[2022-06-23 11:18] LABS: BASOPHILS ABSOLUTE AUTO 0.03 K/mm3 (0.00-0.23); BASOPHILS PERCENT AUTO 0 % (0-2); EOSINOPHILS PERCENT AUTO 0 % (0-6); Hematocrit 39.2 % (37.0-53.0); Hemoglobin 13.2 g/dL (13.5-17.5); IMMATURE GRAN ABSOLUTE AUTO 0.06 K/mm3 (0.00-0.10); IMMATURE GRAN PERCENT AUTO 1 % (0-1); LYMPHOCYTES ABSOLUTE AUTO 0.95 K/mm3 (0.84-5.20); LYMPHOCYTES PERCENT AUTO 8 % (21-46); MONOCYTES ABSOLUTE AUTO 0.88 K/mm3 (0.16-1.47); MONOCYTES PERCENT AUTO 7 % (4-13); Mean Corpuscular HGB 30.2 pg (26.0-34.0); Mean Corpuscular HGB Conc 33.7 g/dL (31.5-36.5); Mean Corpuscular Volume 90 fL (80-100); Mean Platelet Volume 10.1 fL (9.1-12.4); NEUTROPHILS ABSOLUTE AUTO 10.68 K/mm3 (1.96-9.15); NEUTROPHILS PERCENT AUTO 85 % (41-73); Platelet Count 277 K/mm3 (150-400); RDW Coefficient Variation 13.6 % (11.7-14.2); RDW Standard Deviation 44.9 fL (35.1-46.3); Red Blood Cell Count 4.37 M/mm3 (4.30-5.90)
[2022-06-23 11:32] LABS: Albumin, Blood 3.5 g/dL (3.4-5.0); Albumin/Globulin Ratio 0.9 (0.8-1.8); Bilirubin, Total 0.4 mg/dL (0.1-1.0); Bun/Creatinine Ratio 18.1 (12.0-20.0); Calcium, Blood 8.7 mg/dL (8.5-10.1); Creatinine, Blood 0.83 mg/dL (0.60-1.20); Globulin, Blood 3.8 g/dL (2.2-4.0); Potassium, Blood 5.4 mmol/L (3.5-5.5); Total Protein, Blood 7.3 g/dL (6.4-8.2)
== END | disposition home or self-care (01) ==
LOC: LAB SHORT 11:08
PROVIDERS: Physician Assistant
DX: R06.00 Dyspnea, unspecified (principal)
CPT/HCPCS: 80053; 83880; 84484; 85025; 85379

== ENCOUNTER → 2022-08-01 | Outpatient (CLI) | payer MEDICARE, OTHER ==
[~2022-08-01] MED LIST changes: +ABILIFY MYCITE PO; +ABILIFY MYCITE15 M2; +AMOCLA875 PO; +DULERA 100 MCG/13 GM INH; +GABA300 PO; +METH40 PO; +MIRT15 PO; +NICO21TP TOP; +PRED20 PO; +Vistaril50 MG PO; +[UNRECOGNIZED DRUG - CODE] PO
[2022-08-01 16:54] LABS: Alanine Aminotransfer (ALT/SGP 28 U/L (12-78); Albumin, Blood 4.1 g/dL (3.4-5.0); Albumin/Globulin Ratio 1.4 (0.8-1.8); Alk Phos 75 U/L (50-136); Anion Gap 0 mmol/L (6-16); Aspartate Aminotrans (AST/SGOT 15 U/L (12-37); Bilirubin, Direct <0.1 mg/dL (0.0-0.3); Bilirubin, Indirect Unable to Calculate mg/dL (0.1-0.7); Bilirubin, Total 0.2 mg/dL (0.1-1.0); Blood Urea Nitrogen 7 mg/dL (8-24); Bun/Creatinine Ratio 12.9 (12.0-20.0); CO2, Blood 31 mmol/L (21-32); Chloride, Blood 106 mmol/L (98-108); Creatinine, Blood 0.54 mg/dL (0.60-1.20); Globulin, Blood 2.9 g/dL (2.2-4.0); Glomerular Filtration Rate 128 (60-); Glucose, Blood 104 mg/dL (70-99); Sodium, Blood 137 mmol/L (136-145)
[2022-08-03 05:08] LABS: HIV AB/P24 AG SCREEN Non Reactive (Non Reactive)
[2022-08-04 06:09] LABS: HBSAG SCREEN Negative (Negative); HCV AB Non Reactive (Non Reactive); HEP A AB, IGM Negative (Negative); HEP B CORE AB, TOT Negative (Negative)
== END | disposition home or self-care (01) ==
LOC: LAB 14:39 → LAB SHORT 14:39
PROVIDERS: Internal Medicine
DX: F11.20 Opioid dependence, uncomplicated (principal)
CPT/HCPCS: 80053; 82248; 86592; 86704; 86708; 86803; 87340; 87389

== ENCOUNTER → 2023-10-22 | Outpatient (CLI) | payer MEDICARE, OTHER ==
[2023-10-22 13:08] LABS: BASOPHILS ABSOLUTE AUTO 0.04 K/mm3 (0.00-0.23); BASOPHILS PERCENT AUTO 0 % (0-2); EOSINOPHILS ABSOLUTE AUTO 0.11 K/mm3 (0.00-0.68); EOSINOPHILS PERCENT AUTO 1 % (0-6); Hematocrit 34.3 % (37.0-53.0); Hemoglobin 11.6 g/dL (13.5-17.5); IMMATURE GRAN ABSOLUTE AUTO 0.07 K/mm3 (0.00-0.10); IMMATURE GRAN PERCENT AUTO 1 % (0-1); LYMPHOCYTES ABSOLUTE AUTO 1.25 K/mm3 (0.84-5.20); LYMPHOCYTES PERCENT AUTO 8 % (21-46); MONOCYTES ABSOLUTE AUTO 1.47 K/mm3 (0.16-1.47); MONOCYTES PERCENT AUTO 10 % (4-13); Mean Corpuscular HGB 30.4 pg (26.0-34.0); Mean Corpuscular HGB Conc 33.8 g/dL (31.5-36.5); Mean Corpuscular Volume 90 fL (80-100); Mean Platelet Volume 9.5 fL (9.1-12.4); NEUTROPHILS PERCENT AUTO 80 % (41-73); Platelet Count 374 K/mm3 (150-400); RDW Coefficient Variation 13.3 % (11.7-14.2); RDW Standard Deviation 43.9 fL (35.1-46.3); Red Blood Cell Count 3.81 M/mm3 (4.30-5.90); White Blood Cell Count 15.04 K/mm3 (4.00-11.30)
[2023-10-22 13:20] LABS: Albumin, Blood 3.3 g/dL (3.4-5.0); Albumin/Globulin Ratio 0.8 (0.8-1.8); Bilirubin, Total 0.4 mg/dL (0.1-1.0); Bun/Creatinine Ratio 14.8 (12.0-20.0); Calcium, Blood 9.2 mg/dL (8.5-10.1); Creatinine, Blood 0.88 mg/dL (0.60-1.20); Globulin, Blood 4.1 g/dL (2.2-4.0); Potassium, Blood 3.7 mmol/L (3.5-5.5); Total Protein, Blood 7.4 g/dL (6.4-8.2)
== END ==
LOC: LAB 13:03 → LAB SHORT 13:03
PROVIDERS: Emergency Medicine
DX: A41.9 Sepsis, unspecified organism (principal)
CPT/HCPCS: 80053; 85025; 87040

== ENCOUNTER 2024-04-22 10:32 | Emergency (ER) | payer MEDICARE, OTHER ==
[~2024-04-22] VITALS: Ht 180.3 cm; Wt 63.5 kg
[2024-04-22] MEDS ORDERED: NS 1,000 ML IV SCH (12:40)
[2024-04-22 13:13] LABS: Source, Urine Clean Catch
[2024-04-22 13:35] LABS: BASOPHILS ABSOLUTE AUTO 0.11 K/mm3 (0.00-0.23); BASOPHILS PERCENT AUTO 1 % (0-2); EOSINOPHILS ABSOLUTE AUTO 0.13 K/mm3 (0.00-0.68); EOSINOPHILS PERCENT AUTO 1 % (0-6); Hematocrit 48.9 % (37.0-53.0); IMMATURE GRAN ABSOLUTE AUTO 0.04 K/mm3 (0.00-0.10); IMMATURE GRAN PERCENT AUTO 0 % (0-1); LYMPHOCYTES ABSOLUTE AUTO 2.63 K/mm3 (0.84-5.20); LYMPHOCYTES PERCENT AUTO 21 % (21-46); MONOCYTES ABSOLUTE AUTO 0.76 K/mm3 (0.16-1.47); MONOCYTES PERCENT AUTO 6 % (4-13); Mean Corpuscular HGB Conc 34.8 g/dL (31.5-36.5); Mean Corpuscular Volume 86 fL (80-100); Mean Platelet Volume 9.4 fL (9.1-12.4); NEUTROPHILS PERCENT AUTO 71 % (41-73); Platelet Count 464 K/mm3 (150-400); RDW Coefficient Variation 13.2 % (11.7-14.2); RDW Standard Deviation 41.4 fL (35.1-46.3); Red Blood Cell Count 5.67 M/mm3 (4.30-5.90); White Blood Cell Count 12.77 K/mm3 (4.00-11.30)
[2024-04-22 13:42] LABS: Appearance, Urine Clear (Clear); Bilirubin, Urine Neg (Neg); Blood, Urine Neg (Neg); Color, Urine Yellow (P-Yellow); Glucose Qualitative, Urine Neg (Neg); Ketones, Urine Neg (Neg); Leukocyte Esterase, Urine Neg (Neg); Nitrite, Urine Neg (Neg); Protein, Urine Neg (Neg); Specific Gravity, Urine 1.015 (1.003-1.022); Urobilinogen, Urine NORM (Normal); pH, Urine 6.5 (5.0-8.0)
[2024-04-22 14:01] LABS: Albumin, Blood 4.7 g/dL (3.4-5.0); Albumin/Globulin Ratio 1.3 (0.8-1.8); Bilirubin, Total 0.3 mg/dL (0.1-1.0); Calcium, Blood 9.8 mg/dL (8.5-10.1); Creatinine, Blood 0.77 mg/dL (0.60-1.20); Globulin, Blood 3.5 g/dL (2.2-4.0); Potassium, Blood 4.2 mmol/L (3.5-5.5); Total Protein, Blood 8.2 g/dL (6.4-8.2)
[2024-04-22 14:05] LABS: U Amphetamine Screen Not Detected; U Barbituate Screen Not Detected; U Benzodiazapine Screen Not Detected; U Buprenorphine Screen Not Detected; U Cannabinoids Screen DETECTED; U Cocaine Screen Not Detected; U Methadone Screen Not Detected; U Methamphetamine Screen Not Detected; U Opiates Screen Not Detected; U Oxycodone Screen Not Detected; U Phencyclidine Screen Not Detected
[2024-04-22] MEDS ORDERED: LORazepam 2 MG/ML 1ML Injection IV ONE (14:15)
[2024-04-22] MEDS ORDERED: Acetaminophen 500 MG Tab PO ONE (14:15)
[2024-04-22] MEDS ORDERED: levETIRAcetam 1,500 MG in NS 100 ML IV ONE (14:15)
[2024-04-22 16:00] VITALS: BP 112/59
== END 2024-04-22 16:16 | disposition home or self-care (01) ==
LOC: ER 10:32
PROVIDERS: Student in an Organized Health Care Education/Training Program
DX: R41.82 Altered mental status, unspecified (principal); R56.9 Unspecified convulsions; Z79.899 Other long term (current) drug therapy; J44.89 Other specified chronic obstructive pulmonary disease; K21.9 Gastro-esophageal reflux disease without esophagitis; Z87.891 Personal history of nicotine dependence
CPT/HCPCS: 51798; 70450; 80053; 81003; 82140; 83605; 85025; 93005; 93010; 96361; 96374; 96375; 99285-25; A9270; J1953; J2060; J7030